=== PATIENT | male | born 1955 | race Caucasian/White ===

== ENCOUNTER 2017-10-23 08:30 | Outpatient (RCR) | payer OTHER, SELFPAY ==
--- NOTE | 2018-02-03 10:50 | HP.PT.NRP ---
HP - Discharge Summary (1) - Patient Information DANIEL CHAND was seen in my office for initial evaluation on . The following Plan of Care was established for this patient: This patient was last seen in our office . Pertinent comments regarding their Physical therapy will appear below: Patient has not attended therapy in 4 weeks and is appropriate for d/c at this time. At this point I will be discontinuing this patient from physical therapy. I would be happy to see this patient again in the future if found appropriate by the physician. Thank you! Nicole Kauffman
== END 2017-10-23 19:00 | disposition home or self-care (01) ==
LOC: PT 08:30
PROVIDERS: Family Provider Family Medicine; PCP Family Medicine; Visit Provider Family Medicine
DX: M25.511 Pain in right shoulder (principal); M79.1 Myalgia

== ENCOUNTER → 2017-11-22 07:08 | Outpatient (CLI) | payer SELFPAY ==
--- NOTE | 2017-11-22 07:45 | MRI_ITS ---
STUDY: MRI RIGHT SHOULDER REASON FOR EXAM: Right shoulder pain for 6-12 months, surgery 15 years ago. TECHNIQUE: Standardized fat and water weighted pulse sequences were obtained in all 3 orthogonal planes. COMPARISON: Radiographs 11/06/2017. FINDINGS: There is postoperative scarring of the supraspinatus tendon with a low grade partial-thickness tear of the articular surface of the supraspinatus tendon (T2 coronal images 13-14; T2 sagittal image 15) measuring approximately 1.3 cm in diameter. Normal infraspinatus tendon. Normal subscapularis tendon. Normal teres minor tendon. Normal supraspinatus muscle. There is a small cyst at the infraspinatus musculotendinous junction (T2 coronal images 6, 7) measuring approximately 1 cm in length. Normal subscapularis muscle. Normal teres minor muscle. There is a minimal volume of fluid in the glenohumeral joint, mostly in the bicipital tendon sheath. There is an anchor in the humeral head. Normal biceps labral complex. Normal intracapsular long biceps tendon. Normal labrum. Normal capsulo- ligamentous complex. There is mild acromioclavicular arthrosis without substantial undersurface osteophytes (T2 sagittal image 11). There is a Type II morphology (curved), with a neutral orientation. There is no subacromial-subdeltoid bursal fluid. Normal visualized coracohumeral and coracoacromial ligaments. Normal deltoid muscle. Normal trapezius muscle. MRI/Upper Ext Joint Only(Routine) IMPRESSION: Low-grade partial-thickness tear and postoperative scarring of the supraspinatus tendon. Mild acromioclavicular arthrosis. Electronically Signed: Matheus Herbert MD at 8:55 EST Tel , Service support ,
== END ==
PROVIDERS: Family Provider Family Medicine; PCP Family Medicine; Visit Provider Orthopaedic Surgery
DX: M75.101 Unspecified rotator cuff tear or rupture of right shoulder, not specified as traumatic (principal); M19.011 Primary osteoarthritis, right shoulder
CPT/HCPCS: 73221

== ENCOUNTER 2018-04-01 08:00 | Outpatient (RCR) | payer MEDICARE, OTHER, SELFPAY ==
--- NOTE | 2018-03-13 11:59 | HP.PTEVAL ---
Patient's Visit Information DANIEL CHAND is a 62 year old M referred to Physical Therapy by Daniel Ledezma with a diagnosis of Shoulder Pain. Date of Evaluation: 03/13/18 Physical Therapist: Nicole Kauffman - Visit Plan Frequency: 2x /Week Duration: 3 Weeks Plan: Focus on scap s/s wth good mechanics- DN, manual for modalities - Subjective Subjective: Patient reports long term right shoulder issues. He has had multiple surgeries on the shoulder. It started bothering him years ago and he had another MRI. MD wanted to do surgery to scope it but he declined and had PRP done instead. He reports that the shoulder is stiff and painful all the time but increases with activity. Pain at its worst is a 8/10 best is a 0/10. He reports pain is dull and achy and sharp/shooting with activities. 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 he has been working with a physio on the [place] from [place]. He reports n/t in the fingers that comes and goes. he is right hand dominate. Sleep is disturbed and he sleeps on his side and back with 1 pillow. He reports he feels alittle better hanging from the bar - Objective Posture: FH, RS, Increase kyphosis- can correct with verbal cues. when attempting exercises his posture suffers and his head becomes more foward. Observation: decreased muscle mass on the right upper trap and medial border of the scapula. Palpation: tender along infraspinatus, bicpital groove. ROM: WNL in all planes- slow and painful with IR, flexion and abduction. Strength: Scap: poor, Shoulder: 4-/5 throughout Elbow: 5/5, Hose Inspector And Patcher: equal. Sensation: WNL. Cervical spine: ROM WNL. Decreased pain in the ROM with cervical distraction. - Goals Goal 1:: Patient will be I with HEP and progression Goal Time Frame: 4-6 Weeks Goal 2:: Patient will maintain proper posture throughout tx to demo increased scap s/s. Goal Time Frame: 4-6 Weeks Goal 3:: Patient will report 2/10 pain for 1 week Goal Time Frame: 4-6 Weeks Goal 4:: Patient will demo full AROM Goal Time Frame: 4-6 Weeks - Rehabilitation Potential Physical Therapy Diagnosis: Patient presents with hypomobility- he has decreased scapular s/s leading to increased pain. Rehabilitation Potential: Good - Anticipated Interventions Therapeutic Exercise to Include: Strength training, Endurance training, Body mechanics, Postural training, Scapular Strength/Stabilization For the Purpose of:: To improve muscle performance and motor function Manual Therapy Techniques to Include: Mobilization, Functional dry needling, Soft tissue mobilization For the Purpose of:: To improve nutrient delivery to tissue Thank you for the opportunity to evaluate your patient. For Medicare and Medicare HMO plans, please review the plan of care and approve it. It will need to be FAXED BACK to us at [phone] for Medicare purposes. Please let me know if there are questions or concerns regarding this plan of care. Physician Signature: Date:
--- NOTE | 2018-04-01 08:00 | DT_ITS ---
This patient was seen during an EMR downtime March 31, 2018 - April 07, 2018. This patient may have a combination of paper and electronic documentation or all paper documentation. All documentation is viewable within the e-chart portion of [facility] for each patient visit.
--- NOTE | 2018-07-22 10:42 | HP.PT.NRP ---
HP - Discharge Summary (1) - Patient Information DANIEL CHAND was seen in my office for initial evaluation on 03/13/18. The following Plan of Care was established for this patient: Initial Frequency: 2x /Week Initial Duration: 3 Weeks - Anticipated Interventions Therapeutic Exercise to Include: Strength training, Endurance training, Body mechanics, Postural training, Scapular Strength/Stabilization For the Purpose of:: To improve muscle performance and motor function Manual Therapy Techniques to Include: Mobilization, Functional dry needling, Soft tissue mobilization For the Purpose of:: To improve nutrient delivery to tissue This patient was last seen in our office . Pertinent comments regarding their Physical therapy will appear below: Patient has not attended physical therapy in over 8 weeks. At this time patient is appropriate for d/c and return to MD as needed. At this point I will be discontinuing this patient from physical therapy. I would be happy to see this patient again in the future if found appropriate by the physician. Thank you! Nicole Kauffman
== END 2018-04-01 19:00 | disposition home or self-care (01) ==
LOC: PT 08:00
PROVIDERS: Family Provider Family Medicine; PCP Family Medicine; Visit Provider Family Medicine
DX: M25.512 Pain in left shoulder (principal); M25.511 Pain in right shoulder
CPT/HCPCS: 97110; 97140; 97162

== ENCOUNTER → 2018-07-21 11:21 | Outpatient (CLI) | payer MEDICARE, OTHER, SELFPAY ==
[2018-07-21 14:00] LABS: Absolute Lymphocyte Count 1.77 X10^3/ul (0.83-4.51); Absolute Neutrophil Count 3.2 X10^3/uL (2.0-7.7); Basophil# 0.03 X10^3/uL; Basophil% 0.4 % (0-1); Eosinophil# 0.51 X10^3/uL; Eosinophils% 7.6 % (0-5); Hematocrit 44.9 % (40-54); Hemoglobin 15.4 g/dl (13.0-16.5); Lymphocyte # 1.77 X10^3/ul (4.0); Lymphocyte % 26.3 % (19-41); Mean Corp Hgb Conc 34.3 g/gl (32-36); Mean Corpuscular Hgb 30.9 pg (27.0-32.0); Mean Corpuscular Volume 90.2 fL (80-94); Mean Platelet Vol. 10.1 fl (6.2-12.0); Monocyte# 1.18 X10^3/uL; Monocyte% 17.5 % (0-10); Neutrophil # 3.23 X10^3/uL (2.7-7.7); Neutrophil % 48.1 % (47-70); Platelet Count 193 K/mm3 (150-450); RBC Distribution Width CV 13.8 % (11.6-14.6); RBC Distribution Width SD 45.3 fl (35.1-43.9); Red Blood Count 4.98 M/mm3 (4.6-6.2); White Blood Count 6.7 K/mm3 (4.4-11.0)
[2018-07-21 14:01] LABS: POSITIVE COUNT NO; POSITIVE DIFFERENTIAL NO; POSITIVE MORPHOLOGY NO
[2018-07-21 14:03] LABS: Magnesium 2.2 mg/dL (1.6-2.6)
[2018-07-21 14:18] LABS: Vitamin D,25 Hydroxy 28.5 ng/mL (29.95-100.01)
== END ==
PROVIDERS: Family Provider Family Medicine; PCP Family Medicine; Visit Provider Family Medicine
DX: G47.62 Sleep related leg cramps (principal)
CPT/HCPCS: 36415; 82306; 83735; 85025

== ENCOUNTER → 2018-10-27 09:35 | Outpatient (CLI) | payer MEDICARE, OTHER, SELFPAY ==
[2018-10-27 12:23] LABS: Absolute Lymphocyte Count 1.18 X10^3/ul (0.83-4.51); Absolute Neutrophil Count 2.1 X10^3/uL (2.0-7.7); Basophil# 0.01 X10^3/uL; Basophil% 0.2 % (0-1); Eosinophil# 0.25 X10^3/uL; Hematocrit 46.3 % (40-54); Hemoglobin 15.5 g/dl (13.0-16.5); Lymphocyte # 1.18 X10^3/ul (4.0); Lymphocyte % 28.2 % (19-41); Mean Corp Hgb Conc 33.5 g/gl (32-36); Mean Corpuscular Hgb 29.9 pg (27.0-32.0); Mean Corpuscular Volume 89.4 fL (80-94); Mean Platelet Vol. 11.2 fl (6.2-12.0); Monocyte# 0.61 X10^3/uL; Monocyte% 14.6 % (0-10); Neutrophil # 2.12 X10^3/uL (2.7-7.7); Neutrophil % 50.8 % (47-70); Platelet Count 190 K/mm3 (150-450); RBC Distribution Width SD 45.8 fl (35.1-43.9); Red Blood Count 5.18 M/mm3 (4.6-6.2); White Blood Count 4.2 K/mm3 (4.4-11.0)
[2018-10-27 12:24] LABS: POSITIVE COUNT NO; POSITIVE DIFFERENTIAL NO; POSITIVE MORPHOLOGY NO
[2018-10-27 12:38] LABS: Vitamin D,25 Hydroxy 32.1 ng/mL (29.95-100.01)
[2018-10-27 12:45] LABS: Anion Gap 10 (5-15); BUN 15 mg/dL (7-18); BUN/Creat Ratio 17.4 RATIO (10-20); Calcium,Total 8.6 mg/dL (8.5-10.1); Chloride 103 mmol/L (98-107); Cholesterol 197 mg/dL (200); Creatinine, Serum 0.86 mg/dL (0.70-1.30); EST Glomerular Filtration Rate 94 mL/min (>60); Est Glom Filt Rate - Afr Amer 114 mL/min (>60); Free T3 2.8 pg/mL (2.18-3.98); Glucose 85 mg/dL (74-106); High Density Lipoprotein 48 mg/dL; Magnesium 2.4 mg/dL (1.6-2.6); Potassium 4.2 mmol/L (3.5-5.1); Sodium Level 140 mmol/L (136-145); T3 Uptake 36 % (33-40); T4 Free Direct 0.97 ng/dL (0.76-1.46); Thyroid Stim Hormone (TSH) 1.62 uIU/mL (0.358-3.74); Triglycerides 76 mg/dL; Very Low Density Lipoprotein 15 mg/dL (5-40)
[2018-10-29 14:25] LABS: Anti-Thyroglobulin AB < 1.0 IU/mL (0.0-0.9); Thyroglobulin, Serum Qt. 6.5 ng/mL (1.4-29.2)
[2018-10-31 03:06] LABS: DHEA Sulfate 216.3 ug/dL (30.9-295.6)
== END ==
PROVIDERS: Family Provider Family Medicine; PCP Family Medicine; Visit Provider Family Medicine
DX: E78.00 Pure hypercholesterolemia, unspecified (principal); R25.2 Cramp and spasm; R68.89 Other general symptoms and signs
CPT/HCPCS: 36415; 80048; 80061; 82306; 82627; 83735; 84432; 84439; 84443; 84479; 84481; 85025; 86800; 82626

== ENCOUNTER 2019-07-02 10:00 | Outpatient (RCR) | payer SELFPAY ==
--- NOTE | 2019-08-07 08:21 | HP.PTDCSUM ---
HP - PT D/C Summary It has been my pleasure to treat DANIEL CHAND under orders from Self Referred, for the diagnosis of for a total of 1 visit(s). Discharge Date: Please see the following information for a summary of their discharge status. - Subjective Subjective: Dry Needling continued from old chart- all over from cross fit game - Objective Objective/Function: Patient was able to complete without incidence. No increase in s/s throughout session. - Plan Plan: Cont with POC - D/C Information If there are questions or concerns regarding this patient's physical therapy, please feel free to call me at [phone]. Thank you for the referral of this patient. Sincerely, AVILA SavageT
== END 2019-07-02 19:00 | disposition home or self-care (01) ==
LOC: PT 10:00
PROVIDERS: Family Provider Family Medicine; PCP Family Medicine
DX: R69 Illness, unspecified (principal)

== ENCOUNTER → 2020-08-24 12:56 | Outpatient (CLI) | payer MEDICARE, OTHER, SELFPAY ==
--- NOTE | 2020-08-24 13:25 | RAD_ITS ---
HISTORY: Chronic pain ADDITIONAL HISTORY: None provided. EXAMINATION/TECHNIQUE: XR Spine Cervical 4 or 5 Views Number of images including paperwork: 5 COMPARISON: None FINDINGS: VERTEBRAE: No acute fracture. VERTEBRAL ALIGNMENT: No traumatic subluxation. DISKS AND JOINTS: Moderate discogenic degenerative changes C4-5 and C5-6. Facet arthropathy. Mild bilateral foraminal stenosis at C5-6. SOFT TISSUES: Unremarkable paraspinous soft tissues. RAD/Cerv Spine 4 or 5 Views IMPRESSION: No acute findings. Cervical spondylosis. at [id number] Reported and signed by: Naheed Stringer MD Electronically Signed: Naheed Stringer MD at 4:45 EDT Tel , Service support ,
== END ==
DX: M54.2 Cervicalgia (principal); G89.29 Other chronic pain
CPT/HCPCS: 72050

== ENCOUNTER → 2020-09-26 06:45 | Outpatient (CLI) | payer MEDICARE, OTHER, SELFPAY ==
--- NOTE | 2020-09-26 06:54 | MRI_ITS ---
STUDY: MRI CERVICAL SPINE WITHOUT CONTRAST REASON FOR EXAM: Male, 65 years old. chronic neck pain, numbness fingers and hands TECHNIQUE: Standardized fat and water weighted pulse sequences were obtained in the sagittal and axial planes. COMPARISON: None FINDINGS: Normal foramen magnum and brainstem-cervical cord junction. Normal craniovertebral junction. Normal anterior atlantoaxial articulation. Normal odontoid process. Normal cervical lordosis. Normal vertebral bodies and posterior osseous elements. C2-3: Small broad-based disc bulge. Normal central canal and intervertebral neural foramina. C3-4: Small broad-based disc bulge. Normal central canal and intervertebral neural foramina. C4-5: Small broad-based disc bulge. 2 mm retrolisthesis. Normal central canal and intervertebral neural foramina. C5-6: Small broad-based disc bulge. 2 mm retrolisthesis. Normal central canal and intervertebral neural foramina. C6-7: Small broad-based disc bulge. Normal central canal and intervertebral neural foramina. C7-T1: Small broad-based disc bulge. Normal central canal and intervertebral neural foramina. Normal cervical cord. Normal visualized soft tissue structures. MRI/Spine Cervical (Routine) IMPRESSION: Multilevel degenerative changes, as described above. Electronically Signed: Nadia Faulkner, at 7:20 EST Tel , Service support ,
== END ==
DX: M54.2 Cervicalgia (principal); G89.29 Other chronic pain
CPT/HCPCS: 72141

== ENCOUNTER → 2020-10-18 10:24 | Outpatient (CLI) | payer MEDICARE, OTHER, SELFPAY ==
[2020-10-18 12:25] LABS: Anion Gap 3 (5-15); BUN 13 mg/dL (7-18); BUN/Creat Ratio 14.2 RATIO (10-20); Calcium,Total 8.7 mg/dL (8.5-10.1); Chloride 105 mmol/L (98-107); Creatinine, Serum 0.91 mg/dL (0.70-1.30); EST Glomerular Filtration Rate 88 mL/min (>60); Est Glom Filt Rate - Afr Amer 106 mL/min (>60); Glucose 86 mg/dL (74-106); Lipase 213 U/L (73-393); Potassium 4.4 mmol/L (3.5-5.1); Sodium Level 138 mmol/L (136-145)
[2020-10-18 12:31] LABS: Absolute Lymphocyte Count 1.27 X10^3/uL (0.83-4.51); Absolute Neutrophil Count 2.7 X10^3/uL (2.0-7.7); Basophil# 0.05 X10^3/uL; Eosinophil# 0.39 X10^3/uL; Eosinophils% 7.5 % (0-5); Hematocrit 44.2 % (40-54); Hemoglobin 14.8 g/dL (13.0-16.5); Lymphocyte # 1.27 X10^3/ul (4.0); Lymphocyte % 24.6 % (19-41); Mean Corp Hgb Conc 33.5 g/dL (32-36); Mean Corpuscular Hgb 30.2 pg (27.0-32.0); Mean Corpuscular Volume 90.2 fL (80-94); Mean Platelet Vol. 10.8 fl (6.2-12.0); Monocyte# 0.78 X10^3/uL; Monocyte% 15.1 % (0-10); NRBC Flagged by Analyzer 0 % (0-5); Neutrophil # 2.66 X10^3/uL (2.7-7.7); Neutrophil % 51.4 % (47-70); Platelet Count 219 K/mm3 (150-450); RBC Distribution Width CV 12.7 % (11.6-14.6); RBC Distribution Width SD 42.1 fl (35.1-43.9); White Blood Count 5.2 K/mm3 (4.4-11.0)
== END ==
PROVIDERS: PCP Registered Nurse; Referring Provider Registered Nurse; Visit Provider Registered Nurse
DX: R19.7 Diarrhea, unspecified (principal)
CPT/HCPCS: 36415; 80048; 83690; 85025

== ENCOUNTER 2020-10-31 13:30 | Outpatient (RCR) | payer SELFPAY ==
--- NOTE | 2020-12-07 10:29 | HP.PT.NRP ---
DANIEL HEBERTBETH CHAND was seen in my office for initial evaluation on . The following Plan of Care was established for this patient: This patient was last seen in our office . Pertinent comments regarding their Physical therapy will appear below: Dry Needling At this point I will be discontinuing this patient from physical therapy. I would be happy to see this patient again in the future if found appropriate by the physician. Thank you! AVILA SavageT
== END 2020-10-31 19:00 | disposition home or self-care (01) ==
LOC: PT 13:30
PROVIDERS: PCP Family Medicine
DX: R69 Illness, unspecified (principal)

== ENCOUNTER → 2020-12-02 11:21 | Outpatient (CLI) | payer MEDICARE, OTHER, SELFPAY ==
--- NOTE | 2020-12-02 13:55 | NEURO_ITS ---
NCS and/or EMG Patient Report Ordering Doctor: Jacob Ferrera DATE OF SERVICE: 12/02/20 Indication: Intermittent numbness of the hands bilaterally. Chronic neck pain. Multiple remote orthopaedic injuries to both upper extremities. Findings: Nerve conduction studies were performed in the right and left upper extremities. The right median motor study recording the abductor pollicis brevis showed a normal amplitude, borderline distal latency and normal conduction velocity. The right ulnar motor study recording the abductor digiti minimi showed a normal amplitude, normal distal latency and normal conduction velocity. No conduction block or focal slowing was present across the elbow. The right median sensory response recording digit two showed a borderline amplitude, normal latency and borderline conduction velocity. The right ulnar sensory response recording digit five showed a borderline amplitude, normal l atency and slowed conduction velocity. The right radial sensory response recording over the extensor snuff box showed a normal amplitude, normal latency and borderline conduction velocity. The left median motor study recording the abductor pollicis brevis showed a normal amplitude, prolonged distal latency and normal conduction velocity. The left ulnar motor study recording the abductor digiti minimi showed a normal amplitude, normal distal latency and normal conduction velocity. Focal slowing was present across the elbow. The left median sensory response recording digit two showed a borderline amplitude, normal latency and borderline conduction velocity. The left ulnar sensory response recording digit five showed a borderline amplitude, normal latency and slowed conduction velocity. The left radial sensory response recording over the extensor snuff box showed a normal amplitude, latency and conduction velocity. As routine median motor and sensory studies only demonstrated mild a bnormalities, additional internal comparison studies were done to confirm this finding. Right median-ulnar lumbrical / interosseous motor latencies showed a prolonged median latency compared to the ulnar. Left median-ulnar lumbrical / interosseous motor latencies showed a prolonged median latency compared to the ulnar. Needle EMG of the right upper extremity and cervical paraspinal muscles was p erformed. No active denervation was present in any examined muscle. Motor units were large and long with slightly decreased recruitment in the triceps and flexor carpi radialis muscles. All other examined muscles demonstrated normal motor unit morphology, activation and recruitment patterns. Needle EMG of the left upper extremity and cervical paraspinal muscles was performed. No active denervation was present in any examined muscle. Motor units were large and long with slightly decreased recruitment in the triceps and flexor carpi radialis muscles. All other examined muscles demonstrated normal motor unit morphology, activation and recruitment patterns. Impression: This is an abnormal and complex study. There is electrophysiologic evidence consistent with mild, bilateral median neuropathies across the wrist. There is no active denervation of the thenar muscles. 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 Thus, the patient has a double crush in each upper extremity, two separate conditions that may result in upper extremity pain and similar sensory symptoms. Clinical correlation is needed in helping to determine the relative contributions of the two to the patients symptoms. Lastly, please note: because of the two co-existent conditions, this study would be theoretically insensitive in detecting an additional superimposed brachial plexopathy. 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 The pathophysiology is predominantly demyelinating without evidence of secondary axonal loss. Lastly, the diffusely low amplitude sensory responses as well as reduced conduction velocities may be suggestive of an underlying peripheral polyneuropathy. This was not investigated fully as it was not the indication for the current study. If clinically indicated, a dedicated examination can be requested. Jerrod Jimenez D.O.
== END ==
PROVIDERS: PCP Family Medicine
DX: M79.601 Pain in right arm (principal); M79.602 Pain in left arm
CPT/HCPCS: 95886; 95913

== ENCOUNTER 2021-01-04 06:59 | Outpatient (RCR) | payer SELFPAY ==
--- NOTE | 2021-01-04 10:07 | HP.PT.NRP ---
DANIEL HEBERTBETH CHAND was seen in my office for initial evaluation on . The following Plan of Care was established for this patient: This patient was last seen in our office . Pertinent comments regarding their Physical therapy will appear below: At this point I will be discontinuing this patient from physical therapy. I would be happy to see this patient again in the future if found appropriate by the physician. Thank you! AVILA SavageT
== END 2021-01-04 10:34 | disposition home or self-care (01) ==
LOC: PT 06:59
PROVIDERS: PCP Family Medicine
DX: R69 Illness, unspecified (principal)

== ENCOUNTER 2021-06-28 11:00 | Outpatient (RCR) | payer SELFPAY ==
--- NOTE | 2021-09-27 10:48 | HP.PT.NRP ---
DANIEL CHAND was seen in my office for initial evaluation on . The following Plan of Care was established for this patient: This patient was last seen in our office 06/28/21. Pertinent comments regarding their Physical therapy will appear below: Pt. was seen for self pay DN. He has not been seen in several months and will be DC from PT at this point in time. At this point I will be discontinuing this patient from physical therapy. I would be happy to see this patient again in the future if found appropriate by the physician. Thank you! Ja Diaz, AVILAT
== END 2021-06-28 19:00 | disposition home or self-care (01) ==
LOC: PT 11:00
PROVIDERS: PCP Family Medicine
DX: R69 Illness, unspecified (principal)

== ENCOUNTER 2021-12-19 08:30 | Outpatient (RCR) | payer SELFPAY ==
--- NOTE | 2022-04-12 14:40 | HP.PT.NRP ---
DANIEL AMBROSIO MANNIE was seen in my office for initial evaluation on . The following Plan of Care was established for this patient: This patient was last seen in our office . Pertinent comments regarding their Physical therapy will appear below: Patient has not attended PT in over 30 days- Dry Needling- appropriate to be d/c and return to MD for further evaluation as needed. At this point I will be discontinuing this patient from physical therapy. I would be happy to see this patient again in the future if found appropriate by the physician. Thank you! AVILA SavageT
== END 2021-12-19 19:00 | disposition home or self-care (01) ==
LOC: PT 08:30
PROVIDERS: PCP Family Medicine
DX: Z00.00 Encounter for general adult medical examination without abnormal findings (principal)

== ENCOUNTER 2022-08-07 09:30 | Outpatient (RCR) | payer SELFPAY ==
--- NOTE | 2022-09-27 07:37 | HP.PT.NRP ---
DANIEL CHAND was seen in my office for initial evaluation on . The following Plan of Care was established for this patient: This patient was last seen in our office . Pertinent comments regarding their Physical therapy will appear below: Self Pay DN- D/C At this point I will be discontinuing this patient from physical therapy. I would be happy to see this patient again in the future if found appropriate by the physician. Thank you! AVILA SavageT
== END 2022-08-07 19:00 | disposition home or self-care (01) ==
LOC: PT 09:30
PROVIDERS: PCP Family Medicine
DX: R69 Illness, unspecified (principal)

== ENCOUNTER → 2022-08-20 | Outpatient (CLI) | payer MEDICARE, OTHER, SELFPAY ==
[2022-08-20 13:49] LABS: ALB/GLOB Ratio 1.1 RATIO (0.9-2.4); AST(SGOT) 21 U/L (15-37); Alanine Aminotransfer ALT/SGPT 27 U/L (16-61); Alkaline Phosphatase 119 U/L (45-117); Anion Gap 6 (5-15); BUN 18 mg/dL (7-18); BUN/Creat Ratio 18.8 RATIO (10-20); Calcium,Total 9.6 mg/dL (8.5-10.1); Chloride 103 mmol/L (98-107); Creatinine, Serum 0.96 mg/dL (0.70-1.30); EST Glomerular Filtration Rate 83 mL/min (>60); Est Glom Filt Rate - Afr Amer 100 mL/min (>60); Globulin 3.7 g/dL (2.2-4.2); Glucose 78 mg/dL (74-106); Potassium 4.8 mmol/L (3.5-5.1); Protein, Total 7.7 g/dL (6.4-8.2); Sodium Level 138 mmol/L (136-145)
== END | disposition home or self-care (01) ==
PROVIDERS: PCP Family Medicine
DX: B37.7 Candidal sepsis (principal)
CPT/HCPCS: 36415; 80053; 82784

== ENCOUNTER → 2023-01-07 | Outpatient (CLI) | payer MEDICARE, OTHER, SELFPAY | END | disposition home or self-care (01) | LOC: LABSPEC 13:52 | PROVIDERS: PCP Family Medicine; Visit Provider Family Medicine | DX: J02.9 Acute pharyngitis, unspecified (principal) | CPT/HCPCS: 87070 ==

== ENCOUNTER → 2023-04-17 | Outpatient (CLI) | payer MEDICARE, OTHER, SELFPAY ==
[2023-04-17 11:35] LABS: Absolute Lymphocyte Count 1.59 X10^3/uL (0.83-4.51); Absolute Neutrophil Count 2.9 X10^3/uL (2.0-7.7); Basophil# 0.04 X10^3/uL; Basophil% 0.7 % (0-1); Eosinophils% 5.5 % (0-5); Hematocrit 48.4 % (40-54); Lymphocyte # 1.59 X10^3/ul (0.83-4.51); Lymphocyte % 29.1 % (19-41); Mean Corp Hgb Conc 33.1 g/dL (32-36); Mean Corpuscular Hgb 30.2 pg (27.0-32.0); Mean Corpuscular Volume 91.5 fL (80-94); Mean Platelet Vol. 10.2 fl (6.2-12.0); Monocyte# 0.66 X10^3/uL; Monocyte% 12.1 % (0-10); NRBC Flagged by Analyzer 0 % (0-5); Neutrophil # 2.87 X10^3/uL (2.7-7.7); Neutrophil % 52.4 % (47-70); Platelet Count 180 K/mm3 (150-450); RBC Distribution Width CV 14.4 % (11.6-14.6); Red Blood Count 5.29 M/mm3 (4.6-6.2); White Blood Count 5.5 K/mm3 (4.4-11.0)
[2023-04-17 12:14] LABS: Anion Gap 3 (5-15); BUN 17 mg/dL (7-18); BUN/Creat Ratio 19.5 RATIO (10-20); Calcium,Total 8.8 mg/dL (8.5-10.1); Chloride 108 mmol/L (98-107); Creatinine, Serum 0.87 mg/dL (0.70-1.30); EST Glomerular Filtration Rate 92 mL/min (>60); Est Glom Filt Rate - Afr Amer 112 mL/min (>60); Glucose 91 mg/dL (74-106); Potassium 4.5 mmol/L (3.5-5.1); Sodium Level 138 mmol/L (136-145); Thyroid Stim Hormone (TSH) 1.11 uIU/mL (0.358-3.74)
== END | disposition home or self-care (01) ==
LOC: LAB 11:03
PROVIDERS: PCP Family Medicine; Referring Provider Internal Medicine Cardiovascular Disease; Visit Provider Internal Medicine Cardiovascular Disease
DX: I48.0 Paroxysmal atrial fibrillation (principal)
CPT/HCPCS: 36415; 80048; 84443; 85025

== ENCOUNTER → 2023-05-10 | Outpatient (CLI) | payer MEDICARE, OTHER, SELFPAY ==
--- NOTE | 2023-05-10 12:35 | ECHOD_ITS ---
Reason For Study: Arrhythmia Procedure This was a 2D Doppler, Color Flow transthoracic echocardiogram. Exam performed in department. Left Ventricle Normal LV size. Left ventricular systolic function is normal. The estimated ejection fraction is 75 %. No regional wall motion abnormalities noted. Right Ventricle Normal RV size. Normal systolic function. Atria Normal left atrium. Normal right atrium. Hypermobile atrial septum. Mitral Valve Mild mitral valve prolapse, anterior leaflet. Mild (1+) eccentric mitral valve insufficiency. Tricuspid Valve Normal tricuspid valve. Mild (1+) tricuspid valve insufficiency. Pulmonary artery systolic pressure is 30 mmHg. Aortic Valve Trisinus/trileaflet aortic valve. Mild focal aortic valve calcification. Trivial aortic valve insufficiency. Pulmonic Valve Normal pulmonic valve. Great Vessels Normal aortic root. The pulmonary artery is normal size. Normal inferior vena cava. Pericardium/Pleural No pericardial effusion. MMode/2D Measurements & Calculations LVIDd: 4.5 cm IVSd: 0.96 cm Ao root diam: 3.1 cm LVIDs: 2.5 cm LVPWd: 0.93 cm RVDd: 3.8 cm FS: 44.4 % LAV(MOD-bp): 54.1 ml LVAd ap4: 27.5 cm2 SV(MOD-sp4): 51.1 ml LAV(MOD-bp) Indexed: 27.5 ml/m2 LVLd ap4: 8.2 cm LAV(MOD-sp2): 66.0 ml EDV(MOD-sp4): 77.7 ml LAV(MOD-sp4): 44.8 ml EDV(sp4-el): 78.3 ml LVAs ap4: 14.0 cm2 LVLs ap4: 6.4 cm ESV(MOD-sp4): 26.6 ml ESV(sp4-el): 25.9 ml EF(MOD-sp4): 65.8 % EF(sp4-el): 66.9 % SV(sp4-el): 52.4 ml LA A4 area: 17.7 cm2 LA dimension(2D): 3.5 cm RA A4 area: 15.2 cm2 Time Measurements MV dec time: 0.31 sec Doppler Measurements & Calculations MV E max luis: 50.6 cm/sec Lat Peak E' Luis: 9.0 cm/sec Med Peak E' Luis: 8.2 cm/sec MV A max luis: 42.4 cm/sec E/E' lat: 5.6 E/E' med: 6.1 MV E/A: 1.2 Ao V2 max: 185.2 cm/sec LV V1 max: 104.6 cm/sec MV dec slope: 160.8 cm/sec2 Ao max P.7 mmHg LV V1 max P.4 mmHg Ao V2 mean: 133.4 cm/sec Ao mean P.9 mmHg Ao V2 VTI: 39.1 cm PA V2 max: 141.5 cm/sec PI end-d luis: 121.4 cm/sec TR max luis: 258.9 cm/sec TR max P.8 mmHg ECHO/Echo Complete Interpretation Summary Normal LV size. Left ventricular systolic function is normal. The estimated ejection fraction is 75 %. Hypermobile atrial septum. Mild (1+) tricuspid valve insufficiency. Mild mitral valve prolapse, anterior leaflet Ordering Physician: Ghulam Rankin Referring Physician: Mare Castellano Performed By: Vanda Berman, NANNETTE, RVT
--- NOTE | 2023-05-10 13:23 | STRESSREP ---
Stress Test Report Exercise stress test. 68-year-old male with a history of previous CAD Stress protocol: Resting EKG demonstrates sinus bradycardia with a rate of 54 bpm resting blood pressure is 108/62 mmHg. The patient exercised according to the regular Jorge Alberto protocol for a total duration of 12 minutes and 30 seconds attaining a maximum heart rate of 130 bpm which was 86% of maximum predicted heart rate; the maximum workload was 15.3 metabolic equivalents. At rest there were no ST or T wave changes noted to suggest ischemia and at peak exercise upsloping ST changes only were noted which did not meet the criteria for ischemia. No clinical angina was noted the test was terminated due to the target heart rate being achieved/fatigue. The peak blood pressure was 158/64 mmHg. Rate-pressure product was 19,400. Conclusion: Normal exercise stress test at a high workload with no ischemia and no arrhythmias noted.
== END | disposition home or self-care (01) ==
PROVIDERS: PCP Family Medicine; Referring Provider Internal Medicine Cardiovascular Disease; Visit Provider Internal Medicine Cardiovascular Disease
DX: I48.0 Paroxysmal atrial fibrillation (principal); I25.3 Aneurysm of heart
CPT/HCPCS: 93017; 93306

== ENCOUNTER → 2024-02-11 | Outpatient (CLI) | payer MEDICARE, OTHER, SELFPAY | END | disposition home or self-care (01) | LOC: LABSPEC 15:15 | PROVIDERS: PCP Family Medicine; Referring Provider Otolaryngology Otolaryngology/Facial Plastic Surgery; Visit Provider Otolaryngology Otolaryngology/Facial Plastic Surgery | DX: J32.9 Chronic sinusitis, unspecified (principal) | CPT/HCPCS: 87070; 87205 ==

== ENCOUNTER 2024-03-31 14:17 | Outpatient (RCR) | payer SELFPAY | END 2024-03-31 19:00 | disposition home or self-care (01) | LOC: PT 14:17 | PROVIDERS: PCP Family Medicine | DX: Z00.00 Encounter for general adult medical examination without abnormal findings (principal) ==

== ENCOUNTER → 2024-12-25 | Outpatient (CLI) | payer MEDICARE, OTHER, SELFPAY ==
--- NOTE | 2024-12-25 13:22 | CT_ITS ---
PROCEDURE: SINUS/FACIAL BONE REASON FOR EXAM: Chronic history of sinus congestion. TECHNIQUE: CT of the paranasal sinuses with contrast. CONTRAST: COMPARISON: None. FINDINGS: Frontal: Frontal sinuses and frontoethmoidal recesses appear clear. Ethmoid: Mucosal thickening of the ethmoid sinuses. Sphenoid: Sphenoid sinuses and sphenoethmoidal recesses appear clear. Maxillary: Opacification of the maxillary sinus bilaterally more prominent on the right side. The right ostiomeatal complex is obliterated due to soft tissue prominence. Turbinates: Unremarkable. Nasal Septum: Midline. No large nasal septal spur. Mastoids/Middle Ears: Clear at visualized levels. Visualized intracranial structures are unremarkable. No suspicious contrast enhancement. CT/Sinus/Facial Bone IMPRESSION: Opacification of both maxillary sinuses worse on the right side. Mucosal thickening of the ethmoid sinuses. One or more dose reduction techniques were used (e.g., Automated exposure contr ol, adjustment of the mA and/or kV according to patient size, use of iterative reconstruction technique). Reading Location: [id number]
== END | disposition home or self-care (01) ==
PROVIDERS: PCP Internal Medicine; Referring Provider Internal Medicine; Visit Provider Internal Medicine
DX: J01.80 Other acute sinusitis (principal)
CPT/HCPCS: 70486

== ENCOUNTER → 2025-01-01 | Outpatient (CLI) | payer MEDICARE, OTHER, SELFPAY | END | disposition home or self-care (01) | LOC: LABSPEC 15:25 | PROVIDERS: PCP Internal Medicine; Referring Provider Otolaryngology; Visit Provider Otolaryngology | DX: J32.9 Chronic sinusitis, unspecified (principal) | CPT/HCPCS: 87070; 87077; 87186; 87205 ==

== ENCOUNTER → 2025-03-09 | Outpatient (CLI) | payer MEDICARE, OTHER, SELFPAY ==
--- NOTE | 2025-03-09 10:58 | MRI_ITS ---
PROCEDURE: UPPER EXT JOINT ONLY(ROUTINE) 03/09/2025 REASON FOR EXAM: PAIN, PAST HX OF CUFF REPAIR 20 YRS AGO TECHNIQUE: T1, T2, PD MRI of the right upper Extremity. Multiplanar and multisequence images were obtained without IV contrast administration. COMPARISON: COMPARISON : February 01, 2025 x-ray FINDINGS: Bone Marrow: Artifact is noted from the suture anchor in the superolateral humeral head with prior distal infraspinatus repair. There is a full-thickness, 75% with tear of the distal infraspinatus without retraction. There is a full-thickness, 25% with tear of the distal supraspinatus without retraction. There is severe distal subscapularis tendinopathy without full-thickness tear or retraction. The teres minor appears intact. Medial subluxation of the biceps tendon is noted, without avulsion. There is moderate AC joint hypertrophy without evidence of separation, with subcortical cyst formation noted. There is a type 3 acromion with impingement configuration. The labrum appears intact. There is a trace joint effusion which extends into the subacromial subdeltoid bursa. MRI/Upper Ext Joint Only(Routine) IMPRESSION: Artifact is noted from the suture anchor in the superolateral humeral head with prior distal infraspinatus repair. There is a full-thickness, 75% with tear of the distal infraspinatus without re traction. There is a full-thickness, 25% with tear of the distal supraspinatus without re traction. There is severe distal subscapularis tendinopathy without full-thickness tear o r retraction. Medial subluxation of the biceps tendon is noted, without avulsion. There is moderate AC joint hypertrophy without evidence of separation, with sub cortical cyst formation noted. There is a type 3 acromion with impingement configuration. There is a trace joint effusion which extends into the subacromial subdeltoid b ursa. Reading Location: [facility]
== END | disposition home or self-care (01) ==
LOC: OPMRI 10:44
PROVIDERS: PCP Internal Medicine; Referring Provider Orthopaedic Surgery Sports Medicine; Visit Provider Orthopaedic Surgery Sports Medicine
DX: M25.511 Pain in right shoulder (principal); Z98.890 Other specified postprocedural states
CPT/HCPCS: 73221

== ENCOUNTER → 2025-03-16 | Outpatient (CLI) | payer MEDICARE, OTHER, SELFPAY ==
--- NOTE | 2025-03-16 07:41 | CT_ITS ---
PROCEDURE: CHEST WITH CONTRAST 03/16/2025 REASON FOR EXAM: CT CHEST WITH IV CONTRAST; MASS LIKE OPACITIES PROJECT OVER lower right chest. TECHNIQUE: Prone and supine chest CT with intravenous contrast, high resolution CT (HRCT) protocol. Coronal and Sagittal reconstruction series were provided. CONTRAST: Isovue-300 VOLUME: 100 mL One or more dose reduction techniques were used (e.g., Automated exposure control, adjustment of the mA and/or kV according to patient size, use of iterative reconstruction technique). RADIATION DOSE SUMMARY: CTDlvol: 14 mGy DLP: 303.12 mGycm COMPARISON: None FINDINGS: Hardware: None Lymph nodes: Small mediastinal lymph nodes. Heart and Vasculature: Normal heart size. No pericardial effusion. Mild degree of coronary artery calcification. Lungs and Airways: There are multiple bilateral focal areas of patchy airspace disease more pronounced in the posterior medial segment and superior segment of the right lower lobe. Patchy areas of airspace disease also seen in the lateral anterior aspect of the right lower lobe as well as in the lower lobes and right upper lobe. Radiographic follow-up recommended. Pleura: No evidence of pleural effusion. Upper Abdomen: Unremarkable Bones: Degenerative changes of the thoracic spine. CT/Chest WITH Contrast IMPRESSION: Multiple bilateral pulmonary infiltrates as described worse in the right lower lobe. Radiographic follow-up is recommended. Reading Location: [place] [id number]
== END | disposition home or self-care (01) ==
LOC: CT 07:35
PROVIDERS: PCP Internal Medicine; Referring Provider Internal Medicine; Visit Provider Internal Medicine
DX: R91.8 Other nonspecific abnormal finding of lung field (principal)
CPT/HCPCS: 71260; Q9967

== ENCOUNTER → 2025-03-23 | Outpatient (CLI) | payer MEDICARE, OTHER, SELFPAY ==
[2025-03-26 15:08] LABS: Immunoglobulin A 321 mg/dL (61-437); Immunoglobulin E 27 IU/mL (6-495); Immunoglobulin G 1199 mg/dL (603-1613); Immunoglobulin M 107 mg/dL (15-143)
== END | disposition home or self-care (01) ==
LOC: MTLAB 13:55
PROVIDERS: PCP Internal Medicine; Referring Provider Internal Medicine Pulmonary Disease; Visit Provider Internal Medicine Pulmonary Disease
DX: R91.1 Solitary pulmonary nodule (principal); R05.9 Cough, unspecified; R06.00 Dyspnea, unspecified
CPT/HCPCS: 36415; 82784; 82785

== ENCOUNTER → 2025-05-05 | Outpatient (CLI) | payer MEDICARE, OTHER, SELFPAY ==
--- OUTSIDE RECORDS SUMMARY | 2025-04-29 23:00 | XMS RPT_ITS | CCD ---
Author Organization [facility] Care Team Providers Care Rock Loader Name Role Phone PHYSICIAN, NONE Primary Care Physician Unavailab bird DONIS MD, DR MIREILLE ARSHAD Attending U navailable PHYSICIAN, NONE Primary Care Unavailable JULISA GARCIA CNP Attending Unavailable PHYSICIAN, NONE Primary Care Unavailable JEWELS BUSTILLOS, DR MIREILLE ARSHAD [facility]ending [facility] PH[facility]IC[facility], NONE Primary Care Unavailable Dr. Mare Castellano Primary Care Provider Dr. Mare Castellano Referring Provider 1([facility])[id number] Ghulam Rankin Attending Provider Dr. Ghulam Rankin Referring Provider Dr. Ghulam Rankin Other Provider Dr. Nicole Echeverria DO Primary Care Provider Dr. Nicole Echeverria DO Attending Provider Dr. Nicole Echeverria DO Referring Provider Dr. Jerrod Swain MD Attending Provider Dr. Jerrod Swain MD Referring Provider Dru Wilson MD Attending Provider Dr. Ghulam Rankin MD Attending Provider Dru Wilson MD Referring Provider Dr. Kumar Israel MD, V Attending Provider Dr. Kumar Israel MD, V Referring Provider Nicole Echeverria Primary Care Unavailable Nicole Echeverria Referring Unavailable Dru Wilson Attending Unavailable Jacki, Nicole Primary Care Unavailable Chucho, Ghulam Attending Unavailable Jacki, Nicole Primary Care Unavailable Jacki, Nicole Referring Unavailable Dru Wilson Attending Unavailable Jollmurtaza, Mare S Primary Care Unavailable Roof Daniel SALGUERO Attending Unavailable Joaddyiff, Mare S Referring Unavailable Jerrod Swain Referring Unavailabl e Warhortensia, Jerrod Attending Unavailabl e Jacki, Nicole Primary Care Unavailable Jolliff, Mare S Primary Care Unavailable Referred, Self Referring Unavailable Referred, Self Attending Unavailable Jacki, Nicole Referring Unavailable Jacki, Nicole Attending Unavailable Jacki, Nicole Primary Care Unavailable Jacki, Nicole Primary Care Unavailable Sibilia, Kumar V Attending Unavailable Sibilia, Kumar V Referring Unavailable Jacki, Nicole Primary Care Unavailable Dru Wilson Referring Unavailable Dru Wilson Attending Unavailable Jacki, Nicole Primary Care Unavailable Jacki, Nicole Referring Unavailable Jacki, Nicole Attending Unavailable Allergies Allergy Classification Reported Allergen(s) Allergy Type Date of Onset Reaction(s) Facility (8 sources) shrimp allergenic extract Drug Allergy 8 [facility] (2 sources) ventin Allergy to substance 7 [facility] Work Phone: (9 sources) Desvenlafaxine Drug Allergy 2 [facility] (1 source) Desvenlafaxine Drug Allergy 5 [facility] (1 source) Shrimp product Drug allergy (disorder) 3 [facility] Medications Current Medications Medication Drug Class(es) Dates Sig (Normalized) Sig (Original) Cyanocobalamin-Live r Extract (6 sources) Start: 04-17-2023 take 1 tablet by mouth once daily Cyanocobalamin-Claudia er Extract Active 1 TABLET PO DAILY April 17, 2023 10:05am Start: 04-15-2023 End: 04-17-2023 Cyanocobalamin-Liver Extract Discontinued TABLET PO April 15, 2023 12:00am April 17, 2023 10:06am Cyanocobalamin-Liver Extract tablet (10 sources) Start: 04-17-2023 Cyanocobalamin -Liver Extract tablet Active 1 {tbl} PO DAILY April 17, 2023 10:05am Start: 04-15-2023 End: 04-17-2023 Cyanocobalamin-Liver Extract tablet Discontinued {tbl} PO April 15, 2023 12:00am April 17, 2023 10:06am folic acid 15 mg oral tablet (8 sources) Start: 04-15-2023 take 1 tablet by mouth once daily Folic Acid 15 mg tablet Active 15 mg PO DAILY April 15, 2023 12:00am magnesium oxide 500 mg oral tablet (8 sources) Start: 04-15-2023 take 1 tablet by mouth once daily Magnesium Oxide 500 mg tablet Active 500 mg PO DAILY April 15, 2023 12:00am Turmeric Root Extract (3 sources) Start: 04-15-2023 take 500 mg by mouth once daily Turmeric Root Extract Active 500 MG PO DAILY April 15, 2023 12:00am Turmeric Root Extract 500 mg capsule (5 sources) Start: 04-15-2023 take 1 capsule by mouth once daily Turmeric Root Extract 500 mg capsule Active 500 mg PO DAILY April 15, 2023 12:00am Completed/Discontinued Medications Medication Drug Class(es) Dates Sig (Normalized) Sig (Original) acetaminophen 325 mg / oxyCODONE hydrochloride 5 mg oral tablet (11 sources) Opioid Agonist Start: 11-22-2015 End: 04-15-2023 Oxycodone-Acetamino phen 1 TABLET tablet Discontinued 1 - 2 {tbl} PO EVERY 4 HOURS NEEDED as needed for Pain 60 November 22, 2015 1:00am April 15, 2023 10:55am Start: 11-22-2015 End: 04-15-2023 take 1 tablet by mouth every four hours as needed Oxycodone-Acetaminophen Discontinued 1 - 2 TABLET PO EVERY 4 HOURS NEEDED 60 November 22, 2015 1:00am April 15, 2023 10:55am Calcium Phosphate-Vitamin D3 (6 sources) Start: 11-18-2015 End: 04-15-2023 Calcium Phosphate-Vitamin D3 Discontinued 1 EACH PO DAILY November 18, 2015 1:00am April 15, 2023 10:55am Start: 11-18-2015 Calcium Phosph ate-Vitamin D3 Active 1 EACH PO DAILY November 18, 2015 12:00am Start: 11-18-2015 Calcium Phosph ate-Vitamin D3 Active 1 EACH PO DAILY November 18, 2015 1:00am Calcium Phosphate-Vitamin D3 1 EACH tablet,chewable (5 sources) Start: 11-18-2015 End: 04-15-2023 Calcium Phosphate-Vitamin D3 1 EACH tablet,chewable Discontinued 1 NMA PO DAILY November 18, 2015 1:00am April 15, 2023 10:55am docusate sodium 100 mg oral capsule (11 sources) Start: 11-22-2015 End: 04-15-2023 take 1 capsule by mouth twice daily as needed for constipation Docusate Sodium 100 MG capsule Discontinued 100 mg PO TWICE DAILY NEEDED as needed for Constipation November 22, 2015 1:00am April 15, 2023 10:55am Multivitamin 1 EACH tablet (5 sources) Start: 11-18-2015 End: 04-15-2023 Multivitamin 1 EACH tablet Discontinued 1 NMA PO DAILY November 18, 2015 1:00am April 15, 2023 10:56am Multivitamin preparation (6 sources) Start: 11-18-2015 End: 04-15-2023 Multivitamin Discontinued 1 EACH PO DAILY November 18, 2015 1:00am April 15, 2023 10:56am Start: 11-18-2015 Multivitamin A ctive 1 EACH PO DAILY November 18, 2015 12:00am Start: 11-18-2015 Multivitamin A ctive 1 EACH PO DAILY November 18, 2015 1:00am promethazine hydrochloride 25 mg oral tablet (11 sources) Phenothiazine Start: 11-22-2015 End: 04-15-2023 take 1 tablet by mouth every four hours as needed for nausea Promethazine 25 MG tablet Discontinued 25 mg PO EVERY 4 HOURS NEEDED as needed for Nausea November 22, 2015 1:00am April 15, 2023 10:56am Problems Problem Classification Problem Date Documented Date Episodic/Chronic Cardiac dysrhythmias (18 sources) Cardiac arrhythmia; Translations: [Cardiac arrhythmia, unspecified] 04-17-2023 Chronic Disorders of lipid metabolism (8 sources) Hyperlipidemia; Translations: [Hyperlipidemia, unspecified] 04-15-2023 Chronic Heart valve disorders (8 sources) Mitral valve prolapse; Translations: [Nonrheumatic mitral (valve) prolapse] 04-15-2023 Chronic Other and ill-defined heart disease (8 sources) Atrial septal aneurysm; Translations: [Aneurysm of heart] 04-15-2023 Chronic Other connective tissue disease (2 sources) Tear of right rotator cuff; Translations: [Unspecified rotator cuff tear or rupture of right shoulder, not specified as traumatic] 03-23-2025 Episodic Other lower respiratory disease (1 source) Solitary pulmonary nodule; Translations: [Solitary pulmonary nodule] Onset: 03-29-2025 Episodic Other lower respiratory disease (1 source) Other nonspecific abnormal finding of lung field; Translations: [Other nonspecific abnormal finding of lung field] Onset: 2025 Episodic Other non-traumatic joint disorders (8 sources) Pain in right shoulder; Translations: [Right shoulder pain] Onset: 03-13-2025 02-01-2025 Episodic Other non-traumatic joint disorders (6 sources) Hip pain; Translations: [Pain in right hip] 02-01-2025 Episodic Other non-traumatic joint disorders (1 source) Pain in right hip; Translations: [Pain in right hip] Onset: 02-01-2025 Episodic Other upper respiratory infections (1 source) Chronic sinusitis, unspecified; Translations: [Chronic sinusitis, unspecified] Onset: 01-14-2025 Chronic Other upper respiratory infections (1 source) Other acute sinusitis; Translations: [Other acute sinusitis] Onset: 01-07-2025 Episodic Residual codes; unclassified (1 source) Other specified postprocedural states; Translations: [Other specified postprocedural states] Onset: 02-01-2025 Episodic Unclassified (6 sources) Pain of right hip; Translations: [M25.551 - Pain in right hip] Results Test Name Value Interpretation Reference Range Facility Immunoglobulins G/A/M/Robert IMMUNOGLOB A QN 321 mg/dL Normal 61-437 [facility] Comment on above: Order Comment: N Performed By: #### L 3200.1100 #### [facility] [address] [place], [address] IMMUNOGLOB E QN 27 IU/mL Normal 6-495 [facility] Comment on above: Order Comment: N Result Comment: Perf ormed at: [facility] [id number] Clearance Coordinator: Dontae Rehman PhD, Phone: [phone] Performed at: [facility] [id number] Clearance Coordinator: Lorena Thurston MD, Phone: [phone] Performed By: #### L 3200.1100 #### [facility] [address] [place], [address] IMMUNOGLOB G QN 1199 mg/dL Normal 603-1613 [facility] Comment on above: Order Comment: N Performed By: #### L 3200.1100 #### [facility] [address] [place], [address] IMMUNOGLOB M QN 107 mg/dL Normal 15-143 [facility] Comment on above: Order Comment: N Performed By: #### L 3200.1100 #### [facility] [address] [place], [address] IgEOrdered By: Kumar worthy 03-23-2025 IgE 27 IU/mL 6-495 [facility] Comment on above: Performed at: [facility] [employer] [id number] Director: Dontae Rehman PhD, Phone: [phone] at: [employer] [facility] [id number] Director: Lorena Thurston MD, Phone: [phone] Orthopedic Visit Reporton Orthopedic Visit Report [facility] [address] [place] [address] [address] [place] [address] OFFICE VISIT Date of Service: 03/23/25 MR#: [id number] Acct: [id number] Name: DANIEL CHAND Rep #: [id number] : 1955 Provider: Dr. Dru worthy MD Age/Sex: 70/M Location: [facility].REMI Status: Signed Intake Vital Signs 02/01/25 08:59 Height 6 ft Weight: 172 lb 4 oz BMI 23.3 Intake Visit Reasons: RIGHT SHOULDER Accompanied by: Self Is patient in pain?: Yes Allergies desvenlafaxine Allergy (Mild, Verified 03/23/25 08:50) Hives Have you fallen in the past year?: No [facility] Medical History (Updated 03/23/25 @ 09:08 by Dru Wilson MD) Right rotator cuff tear Right hip pain Right shoulder pain Chronic sinusitis Hyperlipidemia Insomnia Atrial septal aneurysm Mild mitral valve prolapse Paroxysmal atrial fibrillation Surgical History S/P left rotator cuff repair bicep repair S/P right rotator cuff repair History of repair of anterior cruciate ligament of right knee History of open reduction and internal fixation (ORIF) procedure Family History Mother CVA (cerebral vascular accident) Brother Arthritis Father Pacemaker Social History Smoking Status: Never smoker alcohol intake: current alcohol intake frequency: 0-2 drinks per day Alcohol type: beer and hard liquor substance use type: does not use caffeine: Yes Type: coffee Number of servings: 2 HPI RIGHT SHOULDER Details: This documentation accurately reflects the service provided and the decisions made by me, Dr. Dru Wilson MD 03/23/25 0215. Part of today???s visit was documented by [ ], acting as scribe. DANIEL CHAND is a 70 year old M here today for FU R shoulder MRI. He was actually doing 10 pull-ups this weekend doing a [employer] workout. He has more concerns of weakness but that does cause some pain. Supplemental Info [facility] [address], [place] [id number] Upper Ext Joint Only(Routine) MR#: [id number] Acct: [id number] Name: DANIEL CHAND Rep #: [id number] : 1955 M 69 From: Everton Stewart MD PCP: Dr. Nicole Echeverria, DO Status: REG CLI Study: Upper Ext Joint Only(Routine) Date of Exam: 03/09/25 Exam# [id number] Ordering Dr: Dru Wilson MD PROCEDURE: UPPER EXT JOINT ONLY(ROUTINE) 03/09/2025 REASON FOR EXAM: PAIN, PAST HX OF CUFF REPAIR 20 YRS AGO TECHNIQUE: T1, T2, PD MRI of the right upper Extremity. Multiplanar and multisequence images were obtained without IV contrast administration. COMPARISON: COMPARISON : February 01, 2025 x-ray FINDINGS: Bone Marrow: Artifact is noted from the suture anchor in the superolateral humeral head with prior distal infraspinatus repair. There is a full-thickness, 75% with tear of the distal infraspinatus without retraction. There is a full- thickness, 25% with tear of the distal supraspinatus without retraction. There is severe distal subscapularis tendinopathy without full-thickness tear or retraction. The teres minor appears intact. Medial subluxation of the biceps tendon is noted, without avulsion. There is moderate AC joint hypertrophy without evidence of separation, with subcortical cyst formation noted. There is a type 3 acromion with impingement configuration. The labrum appears intact. There is a trace joint effusion which extends into the subacromial subdeltoid bursa. MRI/Upper Ext Joint Only(Routine) IMPRESSION: Artifact is noted from the suture anchor in the superolateral humeral head with prior distal infraspinatus repair. There is a full-thickness, 75% with tear of the distal infraspinatus without retraction. There is a full-thickness, 25% with tear of the distal supraspinatus without retraction. There is severe distal subscapularis tendinopathy without full-thickness tear or retraction. Medial subluxation of the biceps tendon is noted, without avulsion. There is moderate AC joint hypertrophy without evidence of separation, with subcortical cyst formation noted. There is a type 3 acromion with impingement configuration. There is a trace joint effusion which extends into the subacromial subdeltoid bursa. Reading Location: [facility] Coding Level of Care Code Off vis,est,level 4 Diagnoses Right shoulder pain M25.511 Right rotator cuff tear M75.101 Assessment and Plan (more content not included)... Normal [facility] Serum or plasma IgA measurem ent (mass/volume)Ordered By: Kumar Israel on 03-23-2025 IgA [Mass/Vol] 321 mg/dL 61-437 [facility] Serum or plasma IgG measurem ent (mass/volume)Ordered By: Kumar Israel on 03-23-2025 IgG [Mass/Vol] 1199 mg/dL 603-1613 [facility] Chest WITH Contraston 2024 Chest WITH Contrast [facility] [address] [place], [place] [address] Chest WITH Contrast MR#: [id number] Acct: [id number] Name: DANIEL CHAND Rep #: [id number] : 1955 M 69 From: Rajesh avalos MD PCP: Dr. Nicole Echeverria, DO Status: REG CLI Study: Chest WITH Contrast Date of Exam: 03/16/25 Exam# [id number] Ordering Dr: Nicole Echeverria DO PROCEDURE: CHEST WITH CONTRAST 03/16/2025 REASON FOR EXAM: CT CHEST WITH IV CONTRAST; MASS LIKE OPACITIES PROJECT OVER lower right chest. TECHNIQUE: Prone and supine chest CT with intravenous contrast, high resolution CT (HRCT) protocol. Coronal and Sagittal reconstruction series were provided. CONTRAST: Isovue-300 VOLUME: 100 mL One or more dose reduction techniques were used (e.g., Automated exposure control, adjustment of the mA and/or kV according to patient size, use of iterative reconstruction technique). RADIATION DOSE SUMMARY: CTDlvol: 14 mGy DLP: 303.12 mGycm COMPARISON: None FINDINGS: Hardware: None Lymph nodes: Small mediastinal lymph nodes. Heart and Vasculature: Normal heart size. No pericardial effusion. Mild degree of coronary artery calcification. Lungs and Airways: There are multiple bilateral focal areas of patchy airspace disease more pronounced in the posterior medial segment and superior segment of the right lower lobe. Patchy areas of airspace disease also seen in the lateral anterior aspect of the right lower lobe as well as in the lower lobes and right upper lobe. Radiographic follow-up recommended. Pleura: No evidence of pleural effusion. Upper Abdomen: Unremarkable Bones: Degenerative changes of the thoracic spine. CT/Chest WITH Contrast IMPRESSION: Multiple bilateral pulmonary infiltrates as described worse in the right lower lobe. Radiographic follow-up is recommended. Reading Location: [address]: Dr. Nicole Echeverria DO Peripheral Equipment Operator: Signed Normal [facility] Magnetic resonance imaging r eportOrdered By: Everton Stewart on 03-10-2025 Study report [facility] [address] [place] [address] Upper Ext Joint Only(Routine) MR#: [id number] Acct: [id number] Name: DANIEL CHAND Rep #: [id number] : 1955 M 69 From: Jeffrey Stewart MD PCP: Dr. Nicole Echeverria DO Status: RE G CLI Study:Upper Ext Joint Only(Routine) Date of Exam: 03/09/25 Exam# [id number] Ordering Dr: Dru Wilson MD PROCEDURE: UPPER EXT JOINT ONLY(ROUTINE) 03/09/2025 REASON FOR EXAM: PAIN, PAST HX OF CUFF REPAIR 20 YRS AGO TECHNIQUE: T1, T2, PD MRI of the right upper Extremity. Multiplanar and multisequence images were obtained without IV contrast administration. COMPARISON: COMPARISON : February 01, 2025 x-ray FINDINGS: Bone Marrow: Artifact is noted from the suture anchor in the superolateral humeral head with prior distal infraspinatus repair. There is a full-thickness, 75% with tear of the distal infraspinatus without retraction. There is a full-thickness, 25% with tear of the distal supraspinatus without retraction. There is severe distal subscapularis tendinopathy without full-thickness tear or retraction. The teres minor appears intact. Medial subluxation of the biceps tendon is noted, without avulsion. There is moderate AC joint hypertrophy without evidence of separation, with subcortical cyst formation noted. There is a type 3 acromion with impingement configuration. The labrum appears intact. There is a trace joint effusion which extends into the subacromial subdeltoid bursa. MRI/Upper Ext Joint Only(Routine) IMPRESSION: Artifact is noted from the suture anchor in the superolateral humeral head with prior distal infraspinatus repair. There is a full-thickness, 75% with tear of the distal infraspinatus without retraction. There is a full-thickness, 25% with tear of the distal supraspinatus without retraction. There is severe distal subscapularis tendinopathy without full-thickness tear orretraction. Medial subluxation of the biceps tendon is noted, without avulsion. There is moderate AC joint hypertrophy without evidence of separation, with subcortical cyst formation noted. There is a type 3 acromion with impingement configuration. There is a trace joint effusion which extends into the subacromial subdeltoid bursa. Reading Location: [facility] CC: Dr. Nicole Echeverria DO; Dr. Dru Wilson MD ~ Peripheral Equipment Operator: Signed [facility] Upper Ext Joint Only(Routine )on 03-09-2025 Upper Ext Joint Only(Routine) [facility] [address] [facility] [address] [place], [place] [id number] Upper Ext Joint Only(Routine) MR#: [id number] Acct: [id number] Name: DANIEL CHAND Rep #: [id number] : 1955 M 69 From: Everton Stewart MD PCP: Dr. Nicole Echeverria DO Status: REG CLI Study: Upper Ext Joint Only(Routine) Date of Exam: 0 03/09/25 Exam# [id number] Ordering Dr: Dru Wilson MD PROCEDURE: UPPER EXT JOINT ONLY(ROUTINE) 03/09/2025 REASON FOR EXAM: PAIN, PAST HX OF CUFF REPAIR 20 YRS AGO TECHNIQUE: T1, T2, PD MRI of the right upper Extremity. Multiplanar and multisequence images were obtained without IV contrast administration. COMPARISON: COMPARISON : February 01, 2025 x-ray FINDINGS: Bone Marrow: Artifact is noted from the suture anchor in the superolateral humeral head with prior distal infraspinatus repair. There is a full-thickness, 75% with tear of the distal infraspinatus without retraction. There is a full- thickness, 25% with tear of the distal supraspinatus without retraction. There is severe distal subscapularis tendinopathy without full-thickness tear or retraction. The teres minor appears intact. Medial subluxation of the biceps tendon is noted, without avulsion. There is moderate AC joint hypertrophy without evidence of separation, with subcortical cyst formation noted. There is a type 3 acromion with impingement configuration. The labrum appears intact. There is a trace joint effusion which extends into the subacromial subdeltoid bursa. MRI/Upper Ext Joint Only(Routine) IMPRESSION: Artifact is noted from the suture anchor in the superolateral humeral head with prior distal infraspinatus repair. There is a full-thickness, 75% with tear of the distal infraspinatus without retraction. There is a full-thickness, 25% with tear of the distal supraspinatus without retraction. There is severe distal subscapularis tendinopathy without full-thickness tear or retraction. Medial subluxation of the biceps tendon is noted, without avulsion. There is moderate AC joint hypertrophy without evidence of separation, with subcortical cyst formation noted. There is a type 3 acromion with impingement configuration. There is a trace joint effusion which extends into the subacromial subdeltoid bursa. Reading Location: [facility] CC: Dr. Nicole Echeverria DO; Dr. Dru Wilson MD Peripheral Equipment Operator: Signed Normal [facility] HIP, UNI W/ Pelvis 2-3 Views on 02-01-2025 HIP, UNI W/ Pelvis 2-3 Views [facility] [address] [place] [id number] HIP, UNI W/ Pelvis 2-3 Views MR#: [id number] Acct: [id number] Name: DANIEL CHAND Rep #: [id number] : 1955 69 From: Ranjith Briceno i, DO PCP: Dr. Nicole Echeverria DO Status: DEP AMB Study: HIP, UNI W/ Pelvis 2-3 Views Date of Exam: 05/21 Exam# [id number] Ordering Dr: Dru Wilson MD PROCEDURE: Pelvis and right hip radiographs, three views 02/01/2025 REASON FOR EXAM: PAIN/ PINCHING FEELING, NKI TECHNIQUE: Three views of the pelvis/right hip were obtained COMPARISON: None available FINDINGS: Three views of the pelvis and right hip were obtained. Bones are mildly osteopenic. Mild degenerative changes lower lumbar spine. SI joints are intact. No displaced pelvic or proximal femur fracture. Moderate degenerative change right hip joint. Severe degenerative change left hip joint. No acute fracture or dislocation of the right hip. RAD/HIP, UNI W/ Pelvis 2-3 Views IMPRESSION: Mild osteopenia. No acute bony abnormality of the pelvis/right hip. Moderate degenerative change right hip joint. Severe degenerative change left hip joint. Electronically Signed By: Ranjith worthy 02/01/2025 19:15 Reading Location: [facility] CC: Dr. Nicole Echeverria DO; Dr. Dru Wilson MD Peripheral Equipment Operator: Signed Normal [facility] Orthopedic Visit Reporton Orthopedic Visit Report [facility] [address] [place] [address] OFFICE VISIT Date of Service: 02/01/25 MR#: [id number] Acct: [id number] Name: DANIEL CHAND Rep #: [id number] : 1955 Provider: Dr. Dru worthy MD Age/Sex: 69/M Location: [facility].REMI Status: Signed Intake Vital Signs 04/17/23 09:59 02/01/25 08:59 Height 6 ft 6 ft Weight: 172 lb 4 oz BMI 23.3 Intake Visit Reasons: RIGHT SHOULDER Chief Complaint: Right shoulder right hip pian Accompanied by: Self Is patient in pain?: Yes Pain scale (1-10): 1 Allergies desvenlafaxine Allergy (Mild, Verified 02/01/25 09:03) Hives Medications ???Medication ???Instructions ???Recorded ???Confirmed ???Type folic acid 15 mg tablet 15 mg PO DAILY 04/15/23 02/01/25 H istory magnesium oxide 500 mg PO DAILY 04/15/23 02/01/25 History turmeric root extract 500 mg 500 mg PO DAILY 04/15/23 02/01/25 History capsule cyanocobalamin-liver extract tablet 1 tab PO DAILY 04/17/23 5 History Have you fallen in the past year?: No PFSH Medical History (Updated 02/01/25 @ 09:28 by Dru Wilson MD) Right hip pain Right shoulder pain Chronic sinusitis Hyperlipidemia Insomnia Atrial septal aneurysm Mild mitral valve prolapse Paroxysmal atrial fibrillation Surgical History S/P left rotator cuff repair bicep repair S/P right rotator cuff repair History of repair of anterior cruciate ligament of right knee History of open reduction and internal fixation (ORIF) procedure Family History Mother CVA (cerebral vascular accident) Brother Arthritis Father Pacemaker Social History Smoking Status: Never smoker alcohol intake: current alcohol intake frequency: 0-2 drinks per day Alcohol type: beer and hard liquor substance use type: does not use caffeine: Yes Type: coffee Number of servings: 2 HPI RIGHT SHOULDER Details: This documentation accurately reflects the service provided and the decisions made by me, Dr. Dru Wilson MD 02/01/25 0824. Part of today???s visit was documented by [ ], acting as scribe. DANIEL CHAND is a 69 year old M here today for right shoulder pain. Patient had a rotator cuff repair [address] Shah [facility]. Has been doing well since then. Has pain with lifting and reaching. Has done home exercises and rehab exercises as much as possible. There is quite a bit of crepitus with range of motion testing of the shoulder. No recent treatment. He is concerned about the buttons with the screws getting loose and there. He also wants an x-ray of his right hip. Supplemental Info MRI/Upper Ext Joint Only(Routine) IMPRESSION: Low-grade partial-thickness tear and postoperative scarring of the supraspinatus tendon. Mild acromioclavicular arthrosis. Electronically Signed: Matheus Herbert MD at 8:55 EST Tel , Service support , X-rays 4 views of the right shoulder demonstrate mild OA, metal anchor, mild superior migration. X-rays 2 views of the right hip demonstrate moderate OA Coding Level of Care Code Off vis,new,level 3 Diagnoses Right shoulder pain M25.511 S/P right rotator cuff repair Z98.890 Right hip pain M25.551 Assessment and Plan Assessment and Plan (1) Right shoulder pain: Status: Acute Plan: 69-year-old man with evidence 6 yrs ago on MRI of a small partial-thickness rotator cuff tear in the setting postoperative from rotator cuff repair 20 years ago. Patient actually stated at the end of the appointment it feels like it slips out given the superior humeral head migration age and a history of having rotator cuff repair about 20 years ago he could have a large tear that is well compensated. I will go ahead and order an MRI of the right shoulder to assess for that and follow- up after that. The patient understands no further questions or concerns. Patient counselled on non-operative and operative means of treating shoulder pain. Conservative options include but not limited to: 1. Rest and Activity Modification: Giving your shoulder time to heal by avoiding movements that cause pain can help. This may involve limiting overhead activities or heavy lifting. 2. Physical Therapy: A physical therapist can guide you through exercises that strengthen the muscles around the shoulder, improve flexibility, and reduce strain on the rotator cuff tendon. 3. Ice and Heat Therapy: Applying ice to the shoulder can help reduce swelling and pain, especially after activity. Heat can be helpful to relax (more content not included)... Normal [facility] Shoulder min 2 Viewson 02-01 Shoulder min 2 Views [facility] [address] [place] [address] Shoulder min 2 Views MR#: [id number] Acct: [id number] Name: DANIEL CHAND Rep #: [id number] : 1955 M 69 From: Ranjith Briceno i DO PCP: Dr. Nicole Echeverria, DO Status: DEP AMB Study: Shoulder min 2 Views Date of Exam: 02/01/25 Exam# [id number] Ordering Dr: Dru Wilson MD PROCEDURE: Right shoulder radiographs, four views 02/01/2025 REASON FOR EXAM: FEELING OF SHOULDER CATCHING, PAIN TECHNIQUE: Four views of the right shoulder were obtained. COMPARISON: None available FINDINGS: Four views of the right shoulder were obtained. A metallic surgical anchor projects over the central right humeral head. No acute fracture or dislocation. Mild degenerative change right acromioclavicular joint. Mild narrowing of the subacromial space. Moderate degenerative change right glenohumeral joint. There is slight superior subluxation of the right humeral head relative to the glenoid on image 2. There are abnormal masslike opacities projecting over the mid to upper right lung and the right perihilar region, measuring up to 5.3 cm. RAD/Shoulder min 2 Views IMPRESSION: Osteopenia. No acute bony abnormality of the right shoulder. Mild degenerative change right acromioclavicular joint. Moderate degenerative change right glenohumeral joint. Mild narrowing of the subacromial space, with some superior subluxation of the right humeral head relative to the glenoid. The findings could be due to chronic rotator cuff tear. A metallic surgical anchor projects over the central right humeral head, which may be from prior rotator cuff repair. Abnormal masslike opacities project over the mid to upper right lung/right hilar region, measuring up to 5.3 cm. The findings are worrisome for malignancy/metastatic disease. Further evaluation with contrast-enhanced chest CT is recommended. A voicemail was left on the ordering physician's phone at 7:22 p.m. Eastern standard time on 02/01/2025. Reading Location: [facility] CC: Dr. Nicole Echeverria DO; Dr. Dru Wilson MD Peripheral Equipment Operator: Signed Normal [facility] Nasopharyngeal Cultureon NAC Acinetobacter baumannii Amount Growth Very Rare Staphylococcus aureus Staphylococcus aureus Acinetobacter baumannii: REACTION Ampicillin+Sulbac Islt GARCIA <=2 S levoFLOXacin Islt GARCIA <=0.12 Meropenem Islt GARCIA <=0.25 S Pip+Tazo Islt GARCIA <=4 S TMP SMX Islt GARCIA <=20 S Staphylococcus aureus: REACTION cefOXitin Susc Islt NEG Doxycycline Islt GARCIA <=0.5 Clindamycin Islt GARCIA 0.25 S Clindamycin.induced Susc Islt NEG Erythromycin Islt GARCIA <=0.25 S Gentamicin Islt GARCIA <=0.5 S Linezolid Islt GARCIA 2 S Moxifloxacin Islt GARCIA <=0.25 S Oxacillin Susc Islt 0.5 S Tetracycline Islt GARCIA <=1 S TMP SMX Islt GARCIA <=10 S Vancomycin Islt GARCIA 1 S Normal [facility] Comment on above: Performed By: #### M 100.2500, M100.1999 #### [facility] [address] [place], [address] Gram Stainon 01-02-2025 GS Positive Normal [facility] Comment on above: Performed By: #### M 100.2500, M100.2000 #### [facility] [address] [place], [address] Gram stainOrdered By: Fer Swain on 01-01-2025 Microscopic observation Gram stain Nom (Unsp spec) [facility] Nasopharyngeal cultureOrdere d By: Jerrod Swain on 01-01-2025 Nasopharyngeal Culture Acinetobacter baumannii Abnormal [facility] Nasopharyngeal Culture Staphylococcus aureus Abnormal [facility] Sinus/Facial Boneon 12-25-19 Sinus/Facial Bone [facility] [address] [place] [address] Sinus/Facial Bone MR#: [id number] Acct: [id number] Name: DANIEL CHAND Rep #: [id number] : 1955 M 69 From: Rajesh avalso MD PCP: Dr. Nicole Echeverria, Status: REG CLI Study: Sinus/Facial Bone Date of Exam: 12/25/24 Exam# [id number] Ordering Dr: Nicole Echeverria DO PROCEDURE: SINUS/FACIAL BONE REASON FOR EXAM: Chronic history of sinus congestion. TECHNIQUE: CT of the paranasal sinuses with contrast. CONTRAST: COMPARISON: None. FINDINGS: Frontal: Frontal sinuses and frontoethmoidal recesses appear clear. Ethmoid: Mucosal thickening of the ethmoid sinuses. Sphenoid: Sphenoid sinuses and sphenoethmoidal recesses appear clear. Maxillary: Opacification of the maxillary sinus bilaterally more prominent on the right side. The right ostiomeatal complex is obliterated due to soft tissue prominence. Turbinates: Unremarkable. Nasal Septum: Midline. No large nasal septal spur. Mastoids/Middle Ears: Clear at visualized levels. Visualized intracranial structures are unremarkable. No suspicious contrast enhancement. CT/Sinus/Facial Bone IMPRESSION: Opacification of both maxillary sinuses worse on the right side. Mucosal thickening of the ethmoid sinuses. One or more dose reduction techniques were used (e.g., Automated exposure control, adjustment of the mA and/or kV according to patient size, use of iterative reconstruction technique). Reading Location: [id number] CC: Dr. Nicole Echeverria, Peripheral Equipment Operator: Signed Normal [facility] Gram stain for investigation of transfusion reactionOrdered By: Rory Hines on 02-11-2024 Microscopic observation Gram stain Nom (Unsp spec) [facility] No Panel InformationOrdered By: Rory Hines on 02-11-2024 Nasopharyngeal Culture No growth in 48 hours. [facility] Absolute lymphocyte countOrd ered By: Dr. Rankin on 04-17-2023 Lymphocytes Auto (Unsp spec) [#/Vol] 1.59 10*3/uL 0.83-4.51 [facility] Basophil percentageOrdered B y: Dr. Rankin on 04-17-2023 Basophils/100 WBC (Bld) 0.7 % 0-1 [facility] Chloride [Moles/Vol] 108 mmol/L 98-107 [facility] Eosinophils/100 WBC (Bld) 5.5 % 0-5 [facility] Glucose [Mass/Vol] 91 mg/dL 74-106 [facility] Neutrophils (Bld) [#/Vol] 2.9 10*3/uL 2.0-7.7 [facility] Neutrophils/100 WBC (Bld) 52.4 % 47-70 [facility] Potassium [Moles/Vol] 4.5 mmol/L 3.5-5.1 [facility] Sodium [Moles/Vol] 138 mmol/L 136-145 [facility] WBC (Bld) [#/Vol] 5.5 10*3/uL 4.4-11.0 [facility] Blood erythrocytes count (nu mber/volume)Ordered By: Dr. Rankin on 04-17-2023 RBC (Bld) [#/Vol] 5.29 10*6/uL 4.6-6.2 [facility] Blood hemoglobin measurement (mass/volume)Ordered By: Dr. Rankin on 04-17-2023 Hemoglobin (Bld) [Mass/Vol] 16.0 g/dL 13.0-16.5 [facility] Blood lymphocytes/100 leukoc ytesOrdered By: Dr. Rankin on 04-17-2023 Lymphocytes/100 WBC (Bld) 29.1 % 19-41 [facility] Blood monocytes/100 leukocyt esOrdered By: Dr. Rankin on 04-17-2023 Monocytes/100 WBC (Bld) 12.1 % 0-10 [facility] Blood platelet mean volumeOr dered By: Dr. Rankin on 04-17-2023 Platelet mean volume (Bld) [Entitic vol] 10.2 fL 6.2-12.0 [facility] Determination of erythrocyte mean corpuscular volume (MCV)Ordered By: Dr. Rankin on 04-17-2023 MCV (RBC) [Entitic vol] 91.5 fL 80-94 [facility] Hematocrit Auto (Bld) [Volum e fraction]Ordered By: Dr. Rankin on 04-17-2023 Hematocrit (Bld) [Volume fraction] 48.4 % 40-54 [facility] - Chemistry and C hemistry - challengeOrdered By: Dr. Rankin on 04-17-2023 CO2 [Moles/Vol] 27.0 mmol/L 21.0-32.0 [facility] Urea nitrogen/Creatinine [Mass ratio] 19.5 mg/mg 10-20 [facility] - Hematology and Cell countsOrdered By: Dr. Rankin on 04-17-2023 Erythrocyte distribution width (RBC) [Entitic vol] 48.0 fL 35.1-43.9 [facility] Erythrocyte distribution width (RBC) [Ratio] 14.4 % 11.6-14.6 [facility] Immature granulocytes/100 WBC (Bld) 0.200 % 0.0-0.9 [facility] Comment on above: IG% - Immature Granu locytes (promyelocytes, myelocytes and metamyelocytes) > 1% indicates that a LEFT SHIFT is Present. MCH (RBC) [Entitic mass] 30.2 pg 27.0-32.0 [facility] Nucleated RBC/100 WBC (Bld) [Ratio] 0 % 0-5 [facility] MCHC Auto (RBC) [Mass/Vol]Or dered By: Dr. Rankin on 04-17-2023 MCHC (RBC) [Mass/Vol] 33.1 g/dL 32-36 [facility] No Panel InformationOrdered By: Dr. Rankin on 04-17-2023 Estimated GFR (MDRD) Amer 112 mL/min >60 [facility] Comment on above: GFR Calc Estimated GFR (MDRD) Non-Af Amer 92 mL/min >60 [facility] Comment on above: Non- GFR Calc Thyroid Stimulating Hormone (TSH) 1.11 uIU/mL 0.358-3.74 [facility] Platelets bldOrdered By: Dr. Rankin on 04-17-2023 Platelets (Bld) [#/Vol] 180 10*3/uL 150-450 [facility] Serum or plasma calcium merrill urement (mass/volume)Ordered By: Dr. Rankin on 04-17-2023 Calcium [Mass/Vol] 8.8 mg/dL 8.5-10.1 [facility] Serum or plasma creatinine m easurement (mass/volume)Ordered By: Dr. Rankin on 04-17-2023 Creatinine [Mass/Vol] 0.87 mg/dL 0.70-1.30 [facility] Comment on above: The validity of the calculated GFR & GFRAA in patients over 70 years has not been determined. Clinical correlation is essential. Serum or plasma urea nitroge n measurement (mass/volume)Ordered By: Dr. Rankin on 04-17-2023 Urea nitrogen [Mass/Vol] 17 mg/dL 7-18 [facility] Thin prep Papanicolaou smear with manual screeningOrdered By: Dr. Rankin on 04-17-2023 Thin prep Papanicolaou smear with manual screening 3 5-15 [facility] MISCon 04-03-2023 Misc. Send Out See Comments Normal [facility] ([place]) Comment on above: Result Comment: Comp lete reference lab report scanned to EMR. Performed By: #### C ARDIM, ANEU, ADIFF, CARDIG, CBC, CARDIA #### [place] [address] [place], [place] [address] [facility] 03-15-2023 Cardiolipin IgA Ab 13.1 APL High <12.0 [facility] ([place]) Comment on above: Result Comment: <12 APL Negative 12-20 APL Indeterminate >20 APL Positive The following results were obtained with the Inova QUANTA Lite VICKI IgA III NASH. Cardiolipin IgA values obtained with the different manufacturers' assay methods may not be used interchangeably. The magnitude of the reported IgA levels cannot be correlated to an endpoint titer. This test is used as an aid in diagnosis of anti-phospholipid syndrome. The test may occasionally be positive in patients with a range of underlying conditions, secondary syphilis, HIV infection, active Hepatitis C, endocarditis, among others. Clinical correlation is required. Performed By: [facility] [place] [address] Clearance Coordinator: Azael Pratt III, M.D. CLIA#: [id number] Performed By: #### C ARDIM, ANEU, ADIFF, CARDIG, CBC, CARDIA #### [place] [address] [address] [facility] 03-15-2023 IgG Cardiolipin Ab <9.0 Normal <15.0 [facility] ([place]) Comment on above: Result Comment: <15 GPL Negative 15-20 GPL Indeterminate >20 GPL Positive The following results were obtained with the Inova QUANTA Lite VICKI IgG III NASH. Cardiolipin IgG values obtained with the different manufacturers' assay methods may not be used interchangeably. The magnitude of the reported IgG levels cannot be correlated to an endpoint titer. This test is used as an aid in diagnosis of anti-phospholipid syndrome. The test may occasionally be positive in patients with a range of underlying conditions, secondary syphilis, HIV infection, active Hepatitis C, endocarditis, among others. Clinical correlation is required. Performed By: [facility] [place] [id number] Clearance Coordinator: Azael Pratt III, M.D. CLIA#: [id number] Performed By: #### C EWELINA PARK ADIFF, CARDIG, CBC, CARDIA #### [place] [id number] CARDIM[facility] 03-15-2023 IgM Cardiolipin Ab 42.2 MPL High <12.5 [facility] ([place]) Comment on above: Result Comment: <12. 5 MPL Negative 12.5-20 MPL Indeterminate >20 MPL Positive The following results were obtained with the SenGenixA Lite VICKI IgM III NASH. Cardiolipin IgM values obtained with the different manufacturers' assay methods may not be used interchangeably. The magnitude of the reported IgM levels cannot be correlated to an endpoint titer. ??? This test is used as an aid in diagnosis of anti-phospholipid syndrome. The test may occasionally be positive in patients with a range of underlying conditions, secondary syphilis, HIV infection, active Hepatitis C, endocarditis, among others. Clinical correlation is required. Performed By: [facility] [address] [place] [address] Clearance Coordinator: Azael Pratt III, M.D. CLIA#: [id number] Performed By: #### C EWELINA PARK ADIFF, CARDIG, CBC, CARDIA #### [place] [address] .Auto Diffon 03-14-2023 Basophil, Absolute 0.0 10 3/mcL Normal 0.0-0.2 [facility] ([place]) Comment on above: Performed By: #### C EWELINA PARK ADIFF, CARDIG, CBC, CARDIA #### [place] [id number] Basophils/100 WBC (Bld) 0.8 % Normal 0.0-2.5 [facility] ([place]) Comment on above: Performed By: #### C XAVIER ANEU, ADIFF, CARDIG, CBC, CARDIA #### [place] [id number] Eosinophil, Absolute 0.3 10 3/mcL Normal 0.0-0.4 [facility] ([place]) Comment on above: Performed By: #### C ARDIM, ANEU, ADIFF, CARDIG, CBC, CARDIA #### [address] [address] Eosinophils/100 WBC (Bld) 5.7 % Normal 0.0-7.0 [facility] ([place]) Comment on above: Performed By: #### C ARDIM, ANEU, ADIFF, CARDIG, CBC, CARDIA #### [address] [address] Lymphocyte, Absolute 1.4 10 3/mcL Normal 0.8-3.9 [facility] ([place]) Comment on above: Performed By: #### C ARDIM, ANEU, ADIFF, CARDIG, CBC, CARDIA #### [address] [address] Lymphocytes/100 WBC (Bld) 26.9 % Normal 10.0-50.0 [facility] ([place]) Comment on above: Performed By: #### C ARDIM, ANEU, ADIFF, CARDIG, CBC, CARDIA #### [address] [address] Monocyte, Absolute 0.8 10 3/mcL Normal 0.2-1.0 [facility] ([place]) Comment on above: Performed By: #### C ARDIM, ANEU, ADIFF, CARDIG, CBC, CARDIA #### [address] [address] Monocytes/100 WBC (Bld) 15.6 % High 1.7-13.0 [facility] ([place]) Comment on above: Performed By: #### C ARDIM, ANEU, ADIFF, CARDIG, CBC, CARDIA #### [address] [address] Neutrophils/100 WBC (Bld) 51.0 % Normal 37.0-80.0 [facility] ([place]) Comment on above: Performed By: #### C ARDIM, ANEU, ADIFF, CARDIG, CBC, CARDIA #### [address] [address] .NEUABSon 03-14-2023 Neutrophil, Absolute 2.7 10 3/mcL Low 2.9-6.2 [facility] ([place]) Comment on above: Performed By: #### C XAVIER ANEU, ADIFF, CARDIG, CBC, CARDIA #### [address] [address] CBCon 03-14-2023 Erythrocyte distribution width (RBC) [Ratio] 14.5 % Normal 11.5-14.5 [facility] ([place]) Comment on above: Performed By: #### C ELIASM, ANEU, ADIFF, CARDIG, CBC, CARDIA #### [address] [address] Hematocrit (Bld) [Volume fraction] 46.5 % Normal 42.0-52.0 [facility] ([place]) Comment on above: Performed By: #### C XAVIER, ANEU, ADIFF, CARDIG, CBC, CARDIA #### [address] [address] Hgb 15.8 G/dL Normal 14.0-18.0 [facility] ([place]) Comment on above: Performed By: #### C XAVIER ANEU, ADIFF, CARDIG, CBC, CARDIA #### [address] [address] MCH (RBC) [Entitic mass] 30.0 pg Normal 27.0-31.2 [facility] ([place]) Comment on above: Performed By: #### C XAVIER, ANEU, ADIFF, CARDIG, CBC, CARDIA #### [address] [address] MCHC 33.9 G/dL Normal 31.8-35.4 [facility] ([place]) Comment on above: Performed By: #### C ELIASM, ANEU, ADIFF, CARDIG, CBC, CARDIA #### [address] [address] MCV (RBC) [Entitic vol] 88.4 fL Normal 80.0-94.0 [facility] ([place]) Comment on above: Performed By: #### C ARDIM, ANEU, ADIFF, CARDIG, CBC, CARDIA #### [address] [address] Platelet 179 10 3/mcL Normal 130-400 [facility] ([place]) Comment on above: Performed By: #### C ARDIM, ANEU, ADIFF, CARDIG, CBC, CARDIA #### [address] [address] Platelet mean volume (Bld) [Entitic vol] 8.7 fL Normal 7.4-10.4 [facility] ([place]) Comment on above: Performed By: #### C ARDIM, ANEU, ADIFF, CARDIG, CBC, CARDIA #### [address] [address] RBC 5.26 10 6/mcL Normal 4.04-6.13 [facility] ([place]) Comment on above: Performed By: #### C ARDIM, ANEU, ADIFF, CARDIG, CBC, CARDIA #### [address] [address] WBC 5.3 10 3/mcL Normal 4.6-10.8 [facility] ([place]) Comment on above: Performed By: #### C ARDIM, ANEU, ADIFF, CARDIG, CBC, CARDIA #### [address] [address] Throat specimen bacteria harry ntification by cultureOrdered By: Roya Patel on 01-10-2023 Bacteria identified Cx Nom (Throat) streptococcus isolated. [facility] MISCon 11-15-2022 [facility]. Send Out See Comments Normal [facility] ([place]) Comment on above: Result Comment: Comp lete reference lab report scanned to EMR. Performed By: #### C ARDIM, ANEU, ADIFF, CARDIG, CBC, CARDIA #### [address] [address] .Auto Diffon 11-06-2022 Basophil, Absolute 0.1 10 3/mcL Normal 0.0-0.2 [facility] ([place]) Comment on above: Performed By: #### U BEBE, ADIFF, MISC, GFR, ANEU, CBC, CMP #### [address] [address] Basophils/100 WBC (Bld) 0.8 % Normal 0.0-2.5 [facility] ([place]) Comment on above: Performed By: #### U BEBE, ADIFF, MISC, GFR, ANEU, CBC, CMP #### [address] [address] Eosinophil, Absolute 0.3 10 3/mcL Normal 0.0-0.4 [facility] ([place]) Comment on above: Performed By: #### U BEBE, ADIFF, MISC, GFR, ANEU, CBC, CMP #### [address] [address] Eosinophils/100 WBC (Bld) 4.6 % Normal 0.0-7.0 [facility] ([place]) Comment on above: Performed By: #### U BEBE, ADIFF, MISC, GFR, ANEU, CBC, CMP #### [address] [address] Lymphocyte, Absolute 1.3 10 3/mcL Normal 0.8-3.9 [facility] ([place]) Comment on above: Performed By: #### U BEBE, ADIFF, MISC, GFR, ANEU, CBC, CMP #### [address] [address] Lymphocytes/100 WBC (Bld) 18.5 % Normal 10.0-50.0 [facility] ([place]) Comment on above: Performed By: #### U BEBE, ADIFF, MISC, GFR, ANEU, CBC, CMP #### [address] [address] Monocyte, Absolute 0.9 10 3/mcL Normal 0.2-1.0 [facility] ([place]) Comment on above: Performed By: #### U BEBE, ADIFF, MISC, GFR, ANEU, CBC, CMP #### [address] [address] Monocytes/100 WBC (Bld) 12.5 % Normal 1.7-13.0 [facility] ([place]) Comment on above: Performed By: #### U BEBE, ADIFF, MISC, GFR, ANEU, CBC, CMP #### [address] [address] Neutrophils/100 WBC (Bld) 63.6 % Normal 37.0-80.0 [facility] ([place]) Comment on above: Performed By: #### U BEBE, ADIFF, MISC, GFR, ANEU, CBC, CMP #### [address] [address] .GFRon 11-06-2022 GFR 87 ml/min/1.73sqm Normal [facility] ([place]) Comment on above: Result Comment: GFR Population mean for , Non- Americans Ages 20-29 = 116 mL/min/1.73 sq.m. Ages 30-39 = 107 mL/min/1.73 sq.m. Ages 40-49 = 99 mL/min/1.73 sq.m. Ages 50-59 = 93 mL/min/1.73 sq.m. Ages 60-69 = 85 mL/min/1.73 sq.m. Ages 70+ = 75 mL/min/1.73 sq.m. Chronic Kidney Disease: Less than 60 mL/min/1.73 square meters End Stage Renal Disease: Less than 15 mL/min/1.73 square meters Performed By: #### C ARDIM, ANEU, ADIFF, CARDIG, CBC, CARDIA #### [address] [address] GFR Non- 72 ml/min/1.73sqm Normal [facility] ([place]) Comment on above: Result Comment: GFR Population mean for , Non- Americans Ages 20-29 = 116 mL/min/1.73 sq.m. Ages 30-39 = 107 mL/min/1.73 sq.m. Ages 40-49 = 99 mL/min/1.73 sq.m. Ages 50-59 = 93 mL/min/1.73 sq.m. Ages 60-69 = 85 mL/min/1.73 sq.m. Ages 70+ = 75 mL/min/1.73 sq.m. Chronic Kidney Disease: Less than 60 mL/min/1.73 square meters End Stage Renal Disease: Less than 15 mL/min/1.73 square meters Performed By: #### C ARDIM, ANEU, ADIFF, CARDIG, CBC, CARDIA #### [address] [address] .NEUABSon 11-06-2022 Neutrophil, Absolute 4.3 10 3/mcL Normal 2.9-6.2 [facility] ([place]) Comment on above: Performed By: #### U BEBE, ADIFF, MISC, GFR, ANEU, CBC, CMP #### [place] [address] CBCon 11-06-2022 Erythrocyte distribution width (RBC) [Ratio] 15.1 % High 11.5-14.5 [facility] ([place]) Comment on above: Performed By: #### U BEBE, ADIFF, MISC, GFR, ANEU, CBC, CMP #### [place] [address] Hematocrit (Bld) [Volume fraction] 44.4 % Normal 42.0-52.0 [facility] ([place]) Comment on above: Performed By: #### U BEBE, ADIFF, MISC, GFR, ANEU, CBC, CMP #### [address] [address] Hgb 15.0 G/dL Normal 14.0-18.0 [facility] ([place]) Comment on above: Performed By: #### U BEBE, ADIFF, MISC, GFR, ANEU, CBC, CMP #### [place] [id number] MCH (RBC) [Entitic mass] 30.5 pg Normal 27.0-31.2 [facility] ([place]) Comment on above: Performed By: #### U BEBE, ADIFF, MISC, GFR, ANEU, CBC, CMP #### [place] [address] MCHC 33.8 G/dL Normal 31.8-35.4 [facility] ([place]) Comment on above: Performed By: #### U BEBE, ADIFF, MISC, GFR, ANEU, CBC, CMP #### [address] [address] MCV (RBC) [Entitic vol] 90.3 fL Normal 80.0-94.0 [facility] ([place]) Comment on above: Performed By: #### U BEBE, ADIFF, MISC, GFR, ANEU, CBC, CMP #### [address] [address] Platelet 193 10 3/mcL Normal 130-400 [facility] ([place]) Comment on above: Performed By: #### U BEBE, ADIFF, MISC, GFR, ANEU, CBC, CMP #### [address] [address] Platelet mean volume (Bld) [Entitic vol] 8.6 fL Normal 7.4-10.4 [facility] ([place]) Comment on above: Performed By: #### U BEBE, ADIFF, MISC, GFR, ANEU, CBC, CMP #### [address] [address] RBC 4.92 10 6/mcL Normal 4.04-6.13 [facility] ([place]) Comment on above: Performed By: #### U BEBE, ADIFF, MISC, GFR, ANEU, CBC, CMP #### [address] [address] WBC 6.8 10 3/mcL Normal 4.6-10.8 [facility] ([place]) Comment on above: Performed By: #### U BEBE, ADIFF, MISC, GFR, ANEU, CBC, CMP #### [address] [address] CMPon 11-06-2022 Albumin Level 4.1 G/dL Normal 3.4-4.8 [facility] ([place]) Comment on above: Performed By: #### C ARDIM, ANEU, ADIFF, CARDIG, CBC, CARDIA #### [address] [address] Albumin/Globulin [Mass ratio] 1.3 {ratio} Normal 1.1-2.5 [facility] ([place]) Comment on above: Performed By: #### C ARDIM, ANEU, ADIFF, CARDIG, CBC, CARDIA #### [address] [address] ALP [Catalytic activity/Vol] 116 U/L Normal 40-135 [facility] ([place]) Comment on above: Performed By: #### C ARDIM, ANEU, ADIFF, CARDIG, CBC, CARDIA #### [address] [address] ALT [Catalytic activity/Vol] 34 U/L Normal 16-63 [facility] ([place]) Comment on above: Performed By: #### C ARDIM, ANEU, ADIFF, CARDIG, CBC, CARDIA #### [address] [address] AST [Catalytic activity/Vol] 30 U/L Normal 10-40 [facility] ([place]) Comment on above: Performed By: #### C ARDIM, ANEU, ADIFF, CARDIG, CBC, CARDIA #### [address] [address] Bili Total 0.8 mg/dL Normal 0.2-1.0 [facility] ([place]) Comment on above: Result Comment: Use of this assay is not recommended for patients undergoing treatment with eltrombopag due to the potential for falsely elevated results. Performed By: #### C ARDIM, ANEU, ADIFF, CARDIG, CBC, CARDIA #### [address] [address] BUN/Creatinine Ratio 22 ratio Normal 7-27 [facility] ([place]) Comment on above: Performed By: #### C ARDIM, ANEU, ADIFF, CARDIG, CBC, CARDIA #### [address] [address] Calcium [Mass/Vol] 9.7 mg/dL Normal 8.4-10.2 [facility] ([place]) Comment on above: Performed By: #### C ARDIM, ANEU, ADIFF, CARDIG, CBC, CARDIA #### [address] [address] Chloride [Moles/Vol] 104 mmol/L Normal 98-107 [facility] ([place]) Comment on above: Performed By: #### C ARDIM, ANEU, ADIFF, CARDIG, CBC, CARDIA #### [address] [address] CO2 [Moles/Vol] 26 mmol/L Normal 23-31 [facility] ([place]) Comment on above: Performed By: #### C ARDIM, ANEU, ADIFF, CARDIG, CBC, CARDIA #### [address] [address] Creatinine [Mass/Vol] 1.03 mg/dL Normal 0.70-1.30 [facility] ([place]) Comment on above: Performed By: #### C ARDIM, ANEU, ADIFF, CARDIG, CBC, CARDIA #### [address] [address] Electrolyte Balance 13.0 mEq/L Normal 4.0-15.0 [facility] ([place]) Comment on above: Performed By: #### C ARDIM, ANEU, ADIFF, CARDIG, CBC, CARDIA #### [address] [address] Globulin 3.2 G/dL Normal [facility] ([place]) Comment on above: Performed By: #### C ARDIM, ANEU, ADIFF, CARDIG, CBC, CARDIA #### [address] [address] Glucose [Mass/Vol] 85 mg/dL Normal 80-115 [facility] ([place]) Comment on above: Performed By: #### C ARDIM, ANEU, ADIFF, CARDIG, CBC, CARDIA #### [address] [address] Potassium [Moles/Vol] 4.6 mmol/L Normal 3.5-5.1 [facility] ([place]) Comment on above: Performed By: #### C ARDIM, ANEU, ADIFF, CARDIG, CBC, CARDIA #### [address] [address] Sodium [Moles/Vol] 143 mmol/L Normal 136-145 [facility] ([place]) Comment on above: Performed By: #### C ARDIM, ANEU, ADIFF, CARDIG, CBC, CARDIA #### [address] [address] Total Protein 7.3 G/dL Normal 6.4-8.2 [facility] ([place]) Comment on above: Performed By: #### C ARDIM, ANEU, ADIFF, CARDIG, CBC, CARDIA #### [address] [place], [place] [address] Urea nitrogen [Mass/Vol] 23 mg/dL High 7-18 [facility] ([place]) Comment on above: Performed By: #### C ARDIM, ANEU, ADIFF, CARDIG, CBC, CARDIA #### [address] [address] LABORATORYOrdered By: SYSTEM SYSTEM on 11-06-2022 Albumin BCP dye [Mass/Vol] 4.1 G/dL Invalid Interpretation Code 3.4 - 4.8 G/dL AO ADM SS Albumin/Globulin [Mass ratio] 1.3 {ratio} Invalid Interpretation Code 1.1 - 2.5 ratio AO ADM SS ALP [Catalytic activity/Vol] 116 U/L Invalid Interpretation Code 40 - 135 U/L AO ADM SS ALT With P-5'-P [Catalytic activity/Vol] 34 U/L Invalid Interpretation Code 16 - 63 U/L AO ADM SS AST With P-5'-P [Catalytic activity/Vol] 30 U/L Invalid Interpretation Code 10 - 40 U/L AO ADM SS Bilirubin [Mass/Vol] 0.8 mg/dL Invalid Interpretation Code 0.2 - 1.0 mg/dL AO ADM SS Calcium [Mass/Vol] 9.7 mg/dL Invalid Interpretation Code 8.4 - 10.2 mg/dL AO ADM SS Chloride [Moles/Vol] 104 mmol/L Invalid Interpretation Code 98 - 107 mmol/L AO ADM SS CO2 [Moles/Vol] 26 mmol/L Invalid Interpretation Code 23 - 31 mmol/L AO ADM SS Creatinine [Mass/Vol] 1.03 mg/dL Invalid Interpretation Code 0.70 - 1.30 mg/dL AO ADM SS Electrolyte Balance 13.0 mEq/L Invalid Interpretation Code 4.0 - 15.0 mEq/L AO ADM SS GFR 87 ml/min/1.73sqm Invalid Interpretation Code AO Chemistry S GFR Non- 72 ml/min/1.73sqm Invalid Interpretation Code AO Chemistry S Globulin 3.2 G/dL Invalid Interpretation Code AO ADM SS Glucose [Mass/Vol] 85 mg/dL Invalid Interpretation Code 80 - 115 mg/dL AO ADM SS Potassium [Moles/Vol] 4.6 mmol/L Invalid Interpretation Code 3.5 - 5.1 mmol/L AO ADM SS Protein [Mass/Vol] 7.3 G/dL Invalid Interpretation Code 6.4 - 8.2 G/dL AO ADM SS Sodium [Moles/Vol] 143 mmol/L Invalid Interpretation Code 136 - 145 mmol/L AO ADM SS Urea nitrogen [Mass/Vol] 23 mg/dL Invalid Interpretation Code 7 - 18 mg/dL AO ADM SS Urea nitrogen/Creatinine [Mass ratio] 22 ratio Invalid Interpretation Code 7 - 27 ratio AO ADM SS Uric Acid Lvl 5.2 mg/dL Invalid Interpretation Code 3.5 - 7.2 mg/dL AO ADM SS LABORATORYOrdered By: Danita Villalobos on 11-06-2022 Basophil, Absolute 0.1 103/mcL Invalid Interpretation Code 0.0 - 0.2 10^3/mcL AO Workflow SS Basophils/100 WBC (Bld) 0.8 % Invalid Interpretation Code 0.0 - 2.5 % AO Workflow SS Eosinophil, Absolute 0.3 103/mcL Invalid Interpretation Code 0.0 - 0.4 10^3/mcL AO Workflow SS Eosinophils/100 WBC (Bld) 4.6 % Invalid Interpretation Code 0.0 - 7.0 % AO Workflow SS Erythrocyte distribution width (RBC) [Ratio] 15.1 % Invalid Interpretation Code 11.5 - 14.5 % AO Workflow SS Hematocrit (Bld) [Volume fraction] 44.4 % Invalid Interpretation Code 42.0 - 52.0 % AO Workflow SS Hemoglobin (Bld) [Mass/Vol] 15.0 G/dL Invalid Interpretation Code 14.0 - 18.0 G/dL AO Workflow SS Lymphocyte, Absolute 1.3 103/mcL Invalid Interpretation Code 0.8 - 3.9 10^3/mcL AO Workflow SS Lymphocytes/100 WBC (Bld) 18.5 % Invalid Interpretation Code 10.0 - 50.0 % AO Workflow SS MCH (RBC) [Entitic mass] 30.5 pg Invalid Interpretation Code 27.0 - 31.2 pg AO Workflow SS MCHC 33.8 G/dL Invalid Interpretation Code 31.8 - 35.4 G/dL AO Workflow SS MCV (RBC) [Entitic vol] 90.3 fL Invalid Interpretation Code 80.0 - 94.0 fL AO Workflow SS Monocyte, Absolute 0.9 103/mcL Invalid Interpretation Code 0.2 - 1.0 10^3/mcL AO Workflow SS Monocytes/100 WBC (Bld) 12.5 % Invalid Interpretation Code 1.7 - 13.0 % AO Workflow SS Neutrophil, Absolute 4.3 103/mcL Invalid Interpretation Code 2.9 - 6.2 10^3/mcL AO Workflow SS Neutrophils/100 WBC (Bld) 63.6 % Invalid Interpretation Code 37.0 - 80.0 % AO Workflow SS Platelet mean volume (Bld) [Entitic vol] 8.6 fL Invalid Interpretation Code 7.4 - 10.4 fL AO Workflow SS Platelets (Bld) [#/Vol] 193 103/mcL Invalid Interpretation Code 130 - 400 10^3/mcL AO Workflow SS RBC (Bld) [#/Vol] 4.92 106/mcL Invalid Interpretation Code 4.04 - 6.13 10^6/mcL AO Workflow SS WBC (Bld) [#/Vol] 6.8 103/mcL Invalid Interpretation Code 4.6 - 10.8 10^3/mcL AO Workflow SS URICon 11-06-2022 Uric Acid Lvl 5.2 mg/dL Normal 3.5-7.2 [facility] ([place]) Comment on above: Performed By: #### U BEBE, ADIFF, MISC, GFR, ANEU, CBC, CMP #### [id number] [place], [place] [address] Basophil percentageon 2021 Bilirubin [Mass/Vol] 1.00 mg/dL 0.20-1.00 [facility] Work Phone: Comment on above: For patients on eltr ombopag therapy, use of Dimension [place] TBIL is not recommended. Chloride [Moles/Vol] 103 mmol/L 98-107 [facility] Work Phone: Glucose [Mass/Vol] 78 mg/dL 74-106 [facility] Work Phone: Potassium [Moles/Vol] 4.8 mmol/L 3.5-5.1 [facility] Work Phone: Protein [Mass/Vol] 7.7 g/dL 6.4-8.2 [facility] Work Phone: Sodium [Moles/Vol] 138 mmol/L 136-145 [facility] Work Phone: Laboratory - Chemistry and C hemistry - challengeon 08-20-2022 ALP [Catalytic activity/Vol] 119 U/L 45-117 [facility] Work Phone: ALT [Catalytic activity/Vol] 27 U/L 16-61 [facility] Work Phone: CO2 [Moles/Vol] 29.0 mmol/L 21.0-32.0 [facility] Work Phone: Globulin (S) [Mass/Vol] 3.7 g/dL 2.2-4.2 [facility] Work Phone: Urea nitrogen/Creatinine [Mass ratio] 18.8 mg/mg 10-20 [facility] Work Phone: No Panel Informationon 08-20 Estimated GFR (MDRD) Amer 100 mL/min >60 [facility] Work Phone: Comment on above: GFR Calc Estimated GFR (MDRD) Non-Af Amer 83 mL/min >60 [facility] Work Phone: Comment on above: Non- GFR Calc Miscellaneous Test See comment [facility] Work [facility]: Comment on above: TEST RESULT LIMITSCa ndida Antibodies IgG,IgA,IgMCandida Antibodies IgG A, Positive Abnormal NegativeCandida Antibodies IgM A, Negative Negative Please note reference interval changeUmu Antibodies IgA A, Negative Negative Please note reference interval changeA: Results of this test are labeled for research purposes only by the assay's integrated circuit fabricator. The performance characteristics of this assay have not beenestablished by the integrated circuit fabricator. The result should not be used for treatment or for diagnostic purposes without confirmation of the diagnosis by anothermedically established diagnostic product or procedure. The performance characteristics were determined by [employer]. __ TESTING PERFORMED AT [facility]. ORIGINAL REPORT ON FILE IN LAB CONTAINS ADDITIONAL TEST SITE INFORMATION. Serum or plasma albumin merrill urement (mass/volume)on 08-20-2022 Albumin [Mass/Vol] 4.0 g/dL 3.2-5.0 [facility] Work Phone: Serum or plasma albumin/glob ulin mass ratioon 08-20-2022 Albumin/Globulin [Mass ratio] 1.1 {ratio} 0.9-2.4 [facility] Work Phone: Serum or plasma calcium merrill urement (mass/volume)on 08-20-2022 Calcium [Mass/Vol] 9.6 mg/dL 8.5-10.1 [facility] Work Phone: Serum or plasma creatinine m easurement (mass/volume)on 08-20-2022 Creatinine [Mass/Vol] 0.96 mg/dL 0.70-1.30 [facility] Work Phone: Comment on above: The validity of the calculated GFR & GFRAA in patients over 70 years has not been determined. Clinical correlation is essential. Serum or plasma urea nitroge n measurement (mass/volume)on 08-20-2022 Urea nitrogen [Mass/Vol] 18 mg/dL - [facility] Work Phone: Thin prep Papanicolaou smear with manual screeningon 08-20-2022 Thin prep Papanicolaou smear with manual screening 21 U/L - [facility] Work Phone: Thin prep Papanicolaou smear with manual screening 6 5-15 [facility] Work Phone: CNOVon 05-15-2021 CNOV Office Visit (GSTNOR ) DANIEL CHAND ([id number]) 1955 M EXC Date Time Provider Department 05/15/21 10:00 AM KEILA SCHULTE During your visit today, we recorded the following information about you: Pulse Blood pressure Weight Height 53/minute 112/61 77.1 kg 1.803 m Keila Schulte PA-C 05/15/2021 12:37 PM Signed CHIEF COMPLAINT: Patient presents with: Lymohocytic Colitis HPI: Daniel Chand is a 66 year old male who presents for Lymohocytic Colitis. Seen by Gen Surg Ruth MARTIN for chronic diarrhea, abdominal cramping for the past year. Had stool studies previously through PCP that were unremarkable. Colonoscopy 03/30/2021 w/ Dr. Mott showed evidence of lymphocytic colitis. BMs are currently 3-4 per day, loose to watery, no blood. Having some intermittent abdominal cramping. Taking probiotic daily. Denies NSAID use, GERD sx. Family hx of colon CA maternal grandfather, uncles (unknown age of dx) Record Review: [facility] / Outside records reviewed. PAST MEDICAL HISTORY Diagnosis Date - Atrial fibrillation (HCC) - Benign neoplasm of colon - Family history of malignant neoplasm of gastrointestinal tract - Hyperlipidemia - Lymphocytic colitis PAST SURGICAL HISTORY Procedure Laterality Date - ARTHROTOMY,OPEN REPAIR MENISCUS 08/28/2008 Open knee reconstruction, right - COLONOS W/REM POLYP SNARE 09/08/2009 - COLONOSCOPY GEN ANES 07/2014 - COLONOSCOPY GEN ANES 03/30/2021 - FRACTURE SURGERY - PAST SURGICAL HISTORY OF 08/28/1993 right arm with hardware, trauma - PAST SURGICAL HISTORY OF 10/28/2009 right rotator cuff repair - PAST SURGICAL HISTORY OF 10/28/2011 repair left distal bicep tendon Allergies: ALLERGIES Allergen Reactions - Seasonal Allergies Other: See Comments Upper Respiratory Symptoms, congestion and headaches; weekly allergy shots - Shrimp [Other] Vomiting Medications: COLLAGEN MISC Cod Liver Oil oil Take by mouth once daily. BEE POLLEN ORAL Take by mouth. CALCIUM CITRATE/VITAMIN D3 (CITRACAL + D ORAL) Take by mouth. Marine Calcium FAMILY HISTORY Problem Relation Age of Onset - Colon Cancer Maternal Grandfather - Stroke Mother - Colon Cancer Maternal Uncle Employer And Job Title: None on file Years Of Education Completed: Not specified Marital Status: Social History Tobacco Use - Smoking status: Never Smoker - Smokeless tobacco: Never Used Vaping Use - Vaping Use: Never used Substance Use Topics - Alcohol use: Yes Comment: a beer or shot daily - Drug use: No Review of Systems: Review of Systems Gastrointestinal: Positive for abdominal pain and diarrhea. Rectal rash Are you taking any blood thinners? No Physical Examination: BP 112/61 Pulse 53 Ht 5' 11 (1.80m) Wt 170 lb (77.1kg) BMI 23.72 kg/(m2). Physical Exam Constitutional: General: He is not in acute distress. Appearance: Normal appearance. He is normal weight. He is not ill-appearing, toxic-appearing or diaphoretic. HENT: Head: Normocephalic and atraumatic. Nose: Nose normal. Eyes: General: No scleral icterus. Right eye: No discharge. Left eye: No discharge. Extraocular Movements: Extraocular movements intact. Conjunctiva/sclera: Conjunctivae normal. Pupils: Pupils are equal, round, and reactive to light. Cardiovascular: Rate and Rhythm: Normal rate and regular rhythm. Pulses: Normal pulses. Heart sounds: Normal heart sounds. No murmur heard. No friction rub. No gallop. Pulmonary: Effort: No respiratory distress. Breath sounds: Normal breath sounds. No stridor. No wheezing, rhonchi or rales. Chest: Chest wall: No tenderness. Abdominal: General: Abdomen is flat. Bowel sounds are normal. There is no distension. Palpations: Abdomen is soft. There is no mass. Tenderness: There is no abdominal tenderness. There is no right CVA tenderness, left CVA tenderness, guarding or rebound. Hernia: No hernia is present. Genitourinary: Comments: Rectal examination: Perianal erythematous, chaffing epidermal layer. No evidence of active drainage, anal fissures, external hemorrhoids. Tester Operator: Smiley Rincon MA Musculoskeletal: General: Normal range of motion. Cervical back: Normal range of motion and neck supple. Skin: General: Skin is warm and dry. Neurological: General: No focal deficit present. Mental Status: He is alert and oriented to person, place, and time. Psychiatric: Mood and Affect: Mood normal. Behavior: Behavior normal. Assessment/Plan (K52.832) Lymphocytic colitis (primary encounter diagnosis) (L30.9) Perianal dermatitis 1. Lymphocytic colitis - budesonide, enteric coated (ENTOCORT EC) 3 mg 24 hr capsule; Take 3 capsules by mouth once daily for 8 weeks. Then 2 capsules by mouth once daily for 2 weeks. Then 1 capsule by mouth daily for 2 weeks. Then discontinue. Dispense: 210 capsule; R (more content not included)... Normal [facility] [place] 04-12-2021 [facility] Telephone (FERMIN) DANIEL CHAND ([id number]) 1955 M EXC Date Time Provider Department 04/12/21 GAEL MOTT During your visit today, we recorded the following information about you: Jena Radha [facility] [place] 04/12/2021 10:04 AM Signed Patient is being referred to Gastroenterology for diarrhea and lymphocytic colitits found on recent colonsocopy. Appointment was made for May 15 at 10:00 with the PA, Keila Schulte. Patient has been notified and appointment reminder mailed as patient does not have mychart. Thank you Jena Evans Allergies As of Date: 04/12/2021 Noted Allergy Reaction SEASONAL ALLERGIES 06/02/2012 14 - Other: See Comments Comments: Upper Respiratory Symptoms, congestion and headaches; weekly allergy shots shrimp [Other] 08/28/2010 11 - Vomiting Date Reviewed: 04/11/2021 Reviewed by: Ruth Linder PA-C - Fully Assessed Reason for Visit: Other [facility] Referral [[id number]] Cmt: to Gastroeneterology Prescriptions as of 04/12/2021 Sig: COLLAGEN MISC MUPIROCIN 2 % TOPICAL OINTMENT Apply 1 application to affect* COD LIVER OIL ORAL Take by mouth once daily. * BEE POLLEN ORAL Take by mouth. * CITRACAL + D ORAL Take by mouth. Problem List As Of Date 04/12/2021 Noted Resolved Special Screening for Malignant Neoplasms, [place]*09/08/2009 Family history of colon cancer [Z80.0] 09/08/2009 03/30/2021 Benign Neoplasm of Colon [D12.6] 09/08/2009 Rotator cuff (capsule) sprain and strain [S43.4*09/20/2010 Biceps tendon rupture [S46.219A] 06/02/2012 Diarrhea [R19.7] 03/30/2021 03/30/2021 Change in bowel habit [R19.4] 03/30/2021 03/30/2021 Personal history of colonic polyps [Z86.010] 03/30/2021 Encounter Status:Closed by JENA SYED on 04/12/21 [facility] CNOVon 04-11-2021 CNOV Office Visit (GENSWS ) DANIEL [id number]) 1955 M [facility] Date Time Provider Department 04/11/21 10:00 AM RUTH LINDER During your visit today, we recorded the following information about you: Temperature Pulse Weight Height 97.4 degrees 59/minute 75.8 kg 1.803 m Ruth Linder PA-C 04/11/2021 10:49 AM Signed Based on findings of lymphocytic colitis, granuloma in Terminal ileum, and abnormal calprotectin and pancreatic elastase noted on outside studies, we would recommend evaluation by Gastroenterology Please notify our office if you have not received a call regarding an appointment after 1 week Recommend a bland diet until diarrhea resolving. Avoid artificial sweeteners, anti-inflammatory medications, alcohol, caffeine and spicy foods Ruth Linder PA-C 04/16/2021 9:48 PM Signed FOLLOW UP VISIT - ENDOSCOPY NAME: Daniel Chand CLINIC NO.: [id number] DATE OF SERVICE: 04/11/2021 : 1955 REFERRING PHYSICIAN: Mare Castellano MD Daniel is a patient I am following with Dr. oMtt for diarrhea, abdominal cramping, history of colon polyps and family history of colon cancer. Dr. Mott performed lower endoscopy on 03/30/21. The patient was found to have normal appearing colon and terminal ileum. Non-bleeding internal hemorrhoids were noted. Random biopsies were taken for evaluation of microscopic colitis. Pathology demonstrated: FINAL DIAGNOSIS 1. Colon, random, biopsy (A) - Lymphocytic colitis-pattern of mucosal injury, see comment. 2. Terminal ileum, biopsy (B) - Small intestinal mucosa with a rare small non-necrotizing granuloma, see comment. COMMENT Sections of the colon (part A) demonstrate expansion of the lamina propria by a chronic inflammatory infiltrate with marked intraepithelial lymphocytosis and associated epithelial injury. No thickening of the collagen table or architectural distortion are identified. Histologically, these findings are consistent with a lymphocytic colitis-pattern of mucosal injury which may be seen in idiopathic lymphocytic colitis as well as with infections and certain medications, among others. The terminal ileum (part B) demonstrates a rare small non-necrotizing granuloma within the lamina propria. No acute inflammation or features of chronicity (i.e. pyloric gland metaplasia or architectural distortion) are seen. The clinical significance of these findings is uncertain and diagnostic considerations include idiopathic inflammatory bowel disease (i.e. Crohn's disease), which can either precede or follow a diagnosis of microscopic colitis (i.e. lymphocytic or collagenous colitis), infection, sarcoidosis, or certain medications, among others. Clinical and endoscopic correlation are recommended. The patient notes no new complaints since the procedure. He states he is still having some loose stools, but overall much less frequently. Has been taking probiotics. Patient also brings a report from functional medicine provider that he is following with outside [facility]. This mentions abnormal pancreatic elastase and calprotectin, with a recommendation to follow up with GI. Patient provided our office with a copy of report, which was sent for scanning by medical records. VITALS: Pulse (!) 59, temperature 36.3 ?C (97.4 ?F), height 180.3 cm (5' 11), weight 75.8 kg (167 lb), SpO2 96 %. General: patient is alert, cooperative, pleasant and in no acute distress On examination, the abdomen is benign. Assessment IMPRESSION: lymphocytic colitis. 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 Abnormal lab studies per-pancreatic elastase and calprotectin-per functional medicine PLAN: The operative findings and pathology report were reviewed with the patient, and the patient has had the opportunity to ask questions and have questions answered. If the patient notes any problems or changes in bowel function, the patient should contact me immediately. Based on findings of lymphocytic colitis, granuloma in Terminal ileum, and abnormal calprotectin and pancreatic elastase noted on outside studies, we would recommend evaluation by Gastroenterology Recommend a bland diet until diarrhea resolving. Avoid artificial sweeteners, anti-inflammatory medications, alcohol, caffeine and spicy foods Patient verbalized understanding of all above and agreed with the plan Diagnoses: (K52.832) Lymphocytic colitis (primary encounter diagnosis) I spent 31 minutes in the visit, with more than 50% of the total lifs-ar-mxdu time of the visit in counseling / coordination of care. Ruth Linder PA-C Referring Provider: SELF [[id number]] Allergies As of Date: 04/11/2021 Noted Allergy Reaction SEASONAL ALLERGIES 06/02/2012 14 - Other: See Comments Comments: Upper Respiratory Symptoms, congestion and headaches; weekly allergy shots shrimp [Other] 08/28/2010 11 - Vomiting Date Revi (more content not included)... Normal [facility] HISTORY PHYSICALon HISTORY PHYSICAL HNO ID: [id number] Author: Gael Mott MD Service: General Surgery Author Type: Physician Type: HANDP Filed: 03/30/2021 9:30 AM Note Text: UPDATED HISTORY AND PHYSICAL EXAMINATION SERVICE DATE: 03/30/2021 SERVICE TIME: 9:30 AM PHYSICAL EXAM MUST BE COMPLETED ON ADMISSION The History and Physical (completed in the past 30 days) has been reviewed and the patient has been examined. The contents accurately reflect the patient's condition with the following additions or revisions since the HANDP was completed. Examination indicates no changes. This HANDP can be found in the Electronic Medical Record dated 03/15/21. SIGNATURE: Gael Mott III, MD PATIENT NAME: Daniel Chand DATE: March 30, 2021 TIME: 9:30 AM Normal [facility] NURSING PROGon 03-30-2021 NURSING PROG HNO ID: [id number] Author: Lauren Caruso RN Service: Nursing Author Type: Registered Nurse Type: Nursing Progress Note Filed: 03/30/2021 10:49 AM Note Text: Pt into Endo recovery room in satisfactory condition. Resting on left side. Pt. sleepy but arousable. Abdomen soft, no complaints. Will continue to monitor. Normal [facility] NURSING PROG HNO ID: [id number] Author: Cindy Lawrence RN Service: ? Author Type: Registered Nurse Type: Nursing Progress Note Filed: 03/30/2021 10:16 AM Note Text: [facility] PRE-OP NURSING HAND OFF NOTE SBAR Hand off given to Emily Houston RN. Hand off was communicated verbally and at the patient's bedside and all questions were answered. Cindy Lawrence RN Normal [facility] SURGICAL PATHOLOGYon 021 SURGICAL PATHOLOGY Specimen originated from [facility] Specimen #: [id number] Submitting Physician: GAEL MOTT ([id number]) FINAL DIAGNOSIS 1. Colon, random, biopsy (A) - Lymphocytic colitis-pattern of mucosal injury, see comment. 2. Terminal ileum, biopsy (B) - Small intestinal mucosa with a rare small non-necrotizing granuloma, see comment. COMMENT Sections of the colon (part A) demonstrate expansion of the lamina propria by a chronic inflammatory infiltrate with marked intraepithelial lymphocytosis and associated epithelial injury. No thickening of the collagen table or architectural distortion are identified. Histologically, these findings are consistent with a lymphocytic colitis-pattern of mucosal injury which may be seen in idiopathic lymphocytic colitis as well as with infections and certain medications, among others. The terminal ileum (part B) demonstrates a rare small non-necrotizing granuloma within the lamina propria. No acute inflammation or features of chronicity (i.e. pyloric gland metaplasia or architectural distortion) are seen. The clinical significance of these findings is uncertain and diagnostic considerations include idiopathic inflammatory bowel disease (i.e. Crohn's disease), which can either precede or follow a diagnosis of microscopic colitis (i.e. lymphocytic or collagenous colitis), infection, sarcoidosis, or certain medications, among others. Clinical and endoscopic correlation are recommended. Susie Walls M.D. (Electronic Signature) ____ SPECIMEN SUBMITTED A: RANDOM COLON, BIOPSIES B: TERMINAL ILEUM, BIOPSIES CLINICAL DATA DIARRHEA GROSS DESCRIPTION A. Received in formalin are multiple pieces of jack, soft tissue aggregating to 4.0 x 0.3 x 0.1 cm. Totally submitted in two cassettes. B. Received in formalin are two pieces of jack, soft tissue aggregating to 1.4 x 0.3 x 0.2 cm. Totally submitted in one cassette. Gross examination performed at [facility], [address] [place] [address] J 03/30/2021 8:59:46 PM Date of Report: 04/01/2021 Date of Procedure: 03/30/2021 Date of Receipt: 03/30/2021 Submitted by: GAEL MOTT ([id number]) Location: W010 Diagnostic interpretation performed at [facility], [address] [place], [place] [address] [address]. [place] Number: [id number] Normal [facility] CNOVon 03-15-2021 CNOV Office Visit (GENSWS ) DANIEL CHAND ([id number]) 1955 M [facility] Date Time Provider Department 03/15/21 8:00 AM RUTH LINDERS During your visit today, we recorded the following information about you: Temperature Pulse Blood pressure Weight 97.4 degrees 67/minute 104/62 77.6 kg Height 1.803 m Stefany Benavidez [facility] 03/15/2021 8:12 AM Signed REVIEW OF SYSTEMS: General: The patient denies fatigue, NOTES weight loss, denies weight gain, denies feeling hot, and denies feelings of cold. Eyes: The patient denies glaucoma, denies eye injury/surgery, wears glasses or contacts. Ear/Nose/Throat: The patient NOTES allergies, denies hayfever, denies ear infections, and denies bloody noses. Cardiovascular: The patient denies chest pain, denies heart disease, denies high blood pressure,denies cardiac stent, denies prior heart attack, NOTES irregular heart beat, denies high cholesterol, denies poor circulation, denies heart failure, other cardiac issues, denies claudication, denies cold feet, denies peripheral arterial stent. Respiratory: The patient denies tuberculosis, denies pneumonia, denies frequent cough, denies pulmonary embolism, denies shortness of breath, and denies coughing up blood. Gastrointestinal: The patient denies difficulty swallowing, NOTES acid reflux, denies ulcers, denies vomiting, denies jaundice/hepatitis, denies gallbladder problems, denies black or tarry stools, denies hemorrhoids, denies bleeding from rectum, denies diverticulitis, denies constipation, NOTES diarrhea, denies loss of stool control, and denies hernias. Kidney/Bladder: The patient denies kidney stones, denies urine infections, and denies bloody urine. Skin: The patient denies a history of skin cancer, denies bleeding/changing moles, and denies a history of skin rash. Neurologic: The patient denies a history of epilepsy/convulsions, denies headaches, denies head/spinal injuries, and denies stroke/TIA. Psychiatric: The patient denies psychiatric medications, denies depression, and denies voices, denies substance abuse. Endocrine: The patient denies thyroid disorders, denies diabetes, and denies hormonal problems. Hematologic: The patient denies a history of bruising, NOTES bleeding, and denies anemia, denies blood clots. Infections: The patient denies a history of measles and mumps, denies rheumatic fever, and denies sexually transmitted diseases. Musculoskeletal: The patient denies back pain/injury, denies back problems, denies sciatica, denies knee/foot trouble, denies arthritis, or denies gout. When was patient's last Mammogram screening? N/A Last Colonoscopy: 07/2014 Stefany Linder PA-C 03/15/2021 8:44 AM Signed HISTORY AND PHYSICAL Daniel Chand 1955 REFERRING PHYSICIAN: Daniel Ledezma MD CHIEF COMPLAINT: Consult (Colonoscopy) HPI: The patient is a 65 year old male referred for endoscopy. Daniel notes new complaint of diarrhea and fecal urgency x 2 months. He denies any changes in travel, sick contacts, changes in diet or new medications prior to onset. States will have loose stools with associated cramping and urgency upwards of 6 x/day. Patient reports he had stool studies completed through his PCP outside [facility], and was told those showed signs of inflammation and he was told he should have a colonoscopy. Records are not currently available for review. Patient denies any weight changes, blood in stools, black tarry stools or abdominal pain. Notes family history of colon cancer on his maternal side. The patient notes no upper GI complaints. Daniel has undergone prior endoscopy. Most recent colonoscopy 08/03/[address] Mott with no concerning findings. 5 year repeat colonoscopy was recommended due to patient's prior history of polyps. Patient's past medical history is significant for hyperlipidemia and atrial fibrillation. He follows with Dr. Art in primary care and Dr. Rankin in cardiology. Patient notes he is not maintained on any prescription medications. He does take cod liver oil, oral bee pollen and calcium/vitamin D3. Patient denies chest pain, shortness of breath or recent hospitalizations. Denies problems with sedation in the past. PAST MEDICAL HISTORY Diagnosis Date - Atrial fibrillation (HCC) - Benign neoplasm of colon - Family history of malignant neoplasm of gastrointestinal tract - Hyperlipidemia PAST SURGICAL HISTORY Procedure Laterality Date - ARTHROTOMY,OPEN REPAIR MENISCUS 09-04 Open knee reconstruction, right - COLONOS W/REM POLYP SNARE 09/08/09 - PAST SURGICAL HISTORY OF right arm with hardware, trauma - PAST SURGICAL HISTORY OF 2009 right rotator cuff repair - PAST SURGICAL HISTORY OF 2011 repair left distal bicep tendon Current Outpatient Medications Medication Sig - COLLAGEN MISC - mupirocin (BACTROBAN) 2 % ointment Apply (more content not included)... Normal [facility] [place] 03-15-2021 [facility] Telephone ([employer]) DANIEL CHAND ([id number]) 1955 M EXC Date Time Provider Department 03/15/21 GAEL MOTT During your visit today, we recorded the following information about you: Carmen Randolph 03/15/2021 10:22 AM Signed [facility] SURGICAL PHONE NOTE Date of Procedure/Surgery: 03-30-2021 Procedure/Surgery Type: COLONOSCOPY ? SEDATION:Conscious Sedation Location of Planned Procedure/Surgery: ? [facility] Surgery/Procedure Ordered: Yes COVID Testing Required: (FOR MAC CASES AND ASC PROCEDURES OTHER THAN COLON AND EGD): No Pre-Op Clearance Needed: No Prep Ordered:Yes: MIRALAX/DULCOLAX Prep Instructions given:Yes: Given in the office. Referral Completed:GERMANE to complete. Patient Diabetic:No. Medication Considerations: Patient on blood Thinners: No Any other meds that need to be held: No Pacemaker or Defibrillator:No Patient/Family Informed of above information and given directions regarding location/arrival: Yes: Patient Transportation Considerations: No Other Important Information: No Any physical limitations: No Any cognitive limitations: No Credit Compliance Officer/Translato r required: No Communication Limitations: No Allergies As of Date: 03/15/2021 Noted Allergy Reaction SEASONAL ALLERGIES 06/02/2012 14 - Other: See Comments Comments: Upper Respiratory Symptoms, congestion and headaches; weekly allergy shots shrimp [Other] 08/28/2010 11 - Vomiting Date Reviewed: 03/15/2021 Reviewed by: Stefany Benavidez LPN - Fully Assessed Reason for Visit: 03-30-2021 [Other] Prescriptions as of 03/15/2021 Sig: COLLAGEN MISC PEG 3350-ELECTROLYTES 236 GRA* Take 4,000 mL by mouth one ti* MUPIROCIN 2 % TOPICAL OINTMENT Apply 1 application to affect* COD LIVER OIL ORAL Take by mouth once daily. * BEE POLLEN ORAL Take by mouth. * CITRACAL + D ORAL Take by mouth. Problem List As Of Date 03/15/2021 Noted Resolved Special Screening for Malignant Neoplasms, [place]*09/08/2009 Family History of Malignant Neoplasm of Gastroi*09/08/2009 Benign Neoplasm of Colon [D12.6] 09/08/2009 Rotator cuff (capsule) sprain and strain [S43.4*09/20/2010 Biceps tendon rupture [S46.219A] 06/02/2012 Encounter Status:Closed by CARMEN RANDOLPH on 04/12/21 [facility] HOSPon 03-15-2021 HOSP Patient:Daniel Chand MRN: Height:5' 11(1.803 m) Weight:171 lb (77.565 kg) Outpatient Medications as of 03/30/21: COLLAGEN MISC mupirocin (BACTROBAN) 2 % ointment Cod Liver Oil oil BEE POLLEN ORAL CALCIUM CITRATE/VITAMIN D3 (CITRACAL + D ORAL) Admission/Clinic Administered Medications as of 03/30/21: lactated ringers iv infusion fentaNYL 50 mcg/mL 25-100 mcg injection (SUBLIMAZE) midazolam 1-5 mg injection (VERSED) diphenhydrAMINE 12.5-50 mg injection (BENADRYL) Problem List: Special screening for malignant neoplasms, colon [Z12.11] Family history of colon cancer [Z80.0] Benign neoplasm of colon [D12.6] Rotator cuff (capsule) sprain [S43.429A] Biceps tendon rupture [S46.219A] Diarrhea [R19.7] Change in bowel habit [R19.4] Personal history of colonic polyps [Z86.010] Allergies: Seasonal Allergies shrimp [Other] Date Verified: 03/30/21 Lab Values No results within the last 30 days for the following basenames: K,HCT Progress Notes ([facility]): Carmen Randolph 03/15/2021 10:22 AM Signed [facility] SURGICAL PHONE NOTE Date of Procedure/Surgery: 03-30-2021 Procedure/Surgery Type: COLONOSCOPY ? SEDATION:Conscious Sedation Location of Planned Procedure/Surgery: ? [facility] Surgery/Procedure Ordered: Yes COVID Testing Required: (FOR MAC CASES AND ASC PROCEDURES OTHER THAN COLON AND EGD): No Pre-Op Clearance Needed: No Prep Ordered:Yes: MIRALAX/DULCOLAX Prep Instructions given:Yes: Given in the office. Referral Completed:PAVE to complete. Patient Diabetic:No. Medication Considerations: Patient on blood Thinners: No Any other meds that need to be held: No Pacemaker or Defibrillator:No Patient/Family Informed of above information and given directions regarding location/arrival: Yes: Patient Transportation Considerations: No Other Important Information: No Any physical limitations: No Any cognitive limitations: No Credit Compliance Officer/Translato r required: No Communication Limitations: No Progress Notes ([facility]): Stefany Benavidez LPN 03/15/2021 8:12 AM Signed REVIEW OF SYSTEMS: General: The patient denies fatigue, NOTES weight loss, denies weight gain, denies feeling hot, and denies feelings of cold. Eyes: The patient denies glaucoma, denies eye injury/surgery, wears glasses or contacts. Ear/Nose/Throat: The patient NOTES allergies, denies hayfever, denies ear infections, and denies bloody noses. Cardiovascular: The patient denies chest pain, denies heart disease, denies high blood pressure,denies cardiac stent, denies prior heart attack, NOTES irregular heart beat, denies high cholesterol, denies poor circulation, denies heart failure, other cardiac issues, denies claudication, denies cold feet, denies peripheral arterial stent. Respiratory: The patient denies tuberculosis, denies pneumonia, denies frequent cough, denies pulmonary embolism, denies shortness of breath, and denies coughing up blood. Gastrointestinal: The patient denies difficulty swallowing, NOTES acid reflux, denies ulcers, denies vomiting, denies jaundice/hepatitis, denies gallbladder problems, denies black or tarry stools, denies hemorrhoids, denies bleeding from rectum, denies diverticulitis, denies constipation, NOTES diarrhea, denies loss of stool control, and denies hernias. Kidney/Bladder: The patient denies kidney stones, denies urine infections, and denies bloody urine. Skin: The patient denies a history of skin cancer, denies bleeding/changing moles, and denies a history of skin rash. Neurologic: The patient denies a history of epilepsy/convulsions, denies headaches, denies head/spinal injuries, and denies stroke/TIA. Psychiatric: The patient denies psychiatric medications, denies depression, and denies voices, denies substance abuse. Endocrine: The patient denies thyroid disorders, denies diabetes, and denies hormonal problems. Hematologic: The patient denies a history of bruising, NOTES bleeding, and denies anemia, denies blood clots. Infections: The patient denies a history of measles and mumps, denies rheumatic fever, and denies sexually transmitted diseases. Musculoskeletal: The patient denies back pain/injury, denies back problems, denies sciatica, denies knee/foot trouble, denies arthritis, or denies gout. When was patient's last Mammogram screening? N/A Last Colonoscopy: 07/2014 Stefany Linder PA-C 03/15/2021 8:44 AM Signed HISTORY AND PHYSICAL Daniel Chand 1955 REFERRING PHYSICIAN: Daniel Ledezma MD CHIEF COMPLAINT: Consult (Colonoscopy) HPI: The patient is a 65 year old male referred for endoscopy. Daniel notes new complaint of diarrhea and fecal urgency x 2 months. He denies any changes in travel, sick contacts, changes in diet or new medications prior to onset. States will have loose stools with associated cramping and urgency upwards of 6 x/day. Patient reports he had stool studies completed through his PCP outside (more content not included)... Normal [facility] Vital Signs Date Time Vital Sign Value Performing Clinician Isaiah mir 02-01-2025 08:59-0400 Body height 182.[address] Nicole Echeverria DO Work Phone: [facility] 02-01-2025 08:59-0400 Body mass index (BMI) [Ratio] 23.3 kg/m2 Dr. Nicole Echeverria DO Work Phone: [facility] 02-01-2025 08:59-0400 Body weight 78.[address] Nicole Echeverria DO Work Phone: [facility] 04-17-2023 09:59-0400 Body height 182.[address] Mare Castellano Work Phone: [facility] 04-17-2023 09:59-0400 Body mass index (BMI) [Ratio] 23.8 kg/m2 Dr. Mare Castellano Work Phone: [facility] 04-17-2023 09:59-0400 Body weight 79.[address] Mare Castellano Work Phone: [facility] 04-17-2023 09:59-0400 Diastolic blood pressure 54 mm[Hg] Dr. Mare Castellano Work Phone: [facility] 04-17-2023 09:59-0400 Heart rate 52 /min Dr. Mare Castellano Work Phone: [facility] 04-17-2023 09:59-0400 Respiratory rate 16 /min Dr. Mare Castellano Work Phone: [facility] 04-17-2023 09:59-0400 Systolic blood pressure 99 mm[Hg] Dr. Mare Castellano Work Phone: [facility] Encounters Encounter Date Encounter Type Care Provider Facility Start: 03-23-2025 End: 03-23-[address] Nicole Echeverria DO Work Phone: [facility] Work Phone: Start: 03-23-2025 End: 03-23-[address] Kumar Israel MD -[facility] [place] Work Phone: Start: 03-23-2025 End: 03-23-[address] Dru Wilson MD -[facility] Work Phone: Start: 03-23-2025 End: 03-23-[address] Nicole Echeverria DO Work Phone: [facility] Work Phone: Start: 03-23-2025 End: 03-23-2025 ambulatory Nicole Echeverria Facility:[facility] Start: 03-16-2025 End: 03-16-[address] Nicole Echeverria DO -Cat Scan [facility] Work Phone: Start: 03-16-2025 End: 03-16-2025 ambulatory Nicole Echeverria Facility:[facility] Start: 03-09-2025 End: 03-09-[address] Nicole Echeverria DO Work Phone: [facility] Work Phone: Start: 03-09-2025 End: 03-09-[address] Dru Wilson MD -[facility] Work Phone: Start: 03-09-2025 End: 03-09-2025 ambulatory Nicole Echeverria Facility:[facility] Start: 02-01-2025 End: 02-01-[address] Dru Wilson MD -[facility] Work Phone: Start: 02-01-2025 End: 02-01-2025 ambulatory Nicole Echeverria Facility:[facility] Start: 01-01-2025 End: 01-01-[address] Nicole Echeverria DO Work Phone: [facility] Work Phone: Start: 01-01-2025 End: 01-01-[address] Jerrod Swain MD -[facility] Work Phone: Start: 01-01-2025 End: 01-01-2025 ambulatory Jerrod Swain Facility:[facility] Start: 12-25-2024 End: 12-25-[address] Nicole Echeverria DO Work Phone: [facility] Work Phone: Start: 12-25-2024 End: 12-25-[address] Nicole Echeverria DO -Cat Scan, [facility] Work Phone: Start: 12-25-2024 End: 12-25-2024 ambulatory Nicole Echeverria Facility:[facility] Start: 04-16-2024 ambulatory Mare Castellano Facility: [facility] Start: 03-31-2024 End: 03-31-2024 ambulatory Mare Castellano Facility:[facility] Start: 02-11-2024 End: 02-11-2024 ambulatory [facility] Work Phone: Start: 02-11-2024 End: 02-11-2024 Patient encounter procedure [facility] Work Phone: Start: 05-10-2023 Non-patient / Non-visit Dr. Mare Castellano Work Phone: [facility] Start: 05-10-2023 End: 05-10-[address] Mare Castellano Work Phone: [facility] Work Phone: Start: 05-10-2023 End: 05-10-[address] Mare Castellano Work Phone: [facility] Work Phone: Start: 04-17-2023 End: 04-17-[address] Mare Castellano Work Phone: [facility] Work Phone: Start: 04-17-2023 End: 04-17-[address] Mare Castellano Work Phone: [facility]Laboratory Start: 04-17-2023 End: 04-17-[address] Mare Castellano Work Phone: [facility] Start: 2023 End: 03-20-[address] MIREILLE DONIS MD Facility:[facility] Start: 03-14-2023 End: 03-15-[address] MIREILLE DONIS MD Facility:[facility] Start: 01-07-2023 End: 01-07-[address] [facility] Start: 11-06-2022 End: 11-07-2022 ambulatory JULISA GARCIA CNP Facility:[facility] Start: 11-06-2022 End: 11-06-2022 Patient encounter procedure JULISA GARCIA THERMAL MOLDER [facility] Start: 08-20-2022 End: 08-20-2022 ambulatory [facility] Work Phone: Start: 08-20-2022 End: 08-20-2022 Patient encounter procedure [facility] Start: 08-07-2022 End: 08-07-2022 ambulatory [facility] Work Phone: Start: 08-07-2022 End: 08-07-2022 Discharged Recurring [facility]Physical Therapy Start: 08-07-2022 Registered Recurring [facility] Start: 12-19-2021 End: 12-19-2021 Discharged Recurring [facility] Procedures Date Procedure Procedure Detail Performing Clinician Start: 03-23-[address] Nicole Echeverria DO Work Phone: Start: 03-16-2025 CT of thorax with contrast Dr. Nicole Echeverria DO Work Phone: Start: 03-09-2025 MRI of joint of lowe r extremity Dr. Nicole Echeverria DO Work Phone: Start: 02-01-2025 Plain x-ray of pelvi s and lower extremity Dr. Nicole Echeverria DO Work Phone: Start: 02-01-2025 Plain X-ray of shoulder Dr. Nicole Echeverria DO Work Phone: Start: 01-01-2025 Gram stain microscopy D emelina Echeverria DO Work Phone: Start: 01-01-2025 End: 01-01-[address] Nicole Echeverria DO Work Phone: Start: 12-25-[address] Tita Echeverria DO Work Phone: Start: 02-11-2024 Investigation of transfusion reaction Start: 02-11-2024 Nasopharyngeal Culture Bacteria identificat ion test Dr. Mare Castellano Work Phone: Bacteria identificat ion test Dr. Mare Castellano Work Phone: History of repair of musculotendinous cuff of shoulder S/P right rotator cuff repair Dr. Nicole Echeverria DO Work Phone: Comment on above: 2004 History of repair of musculotendinous cuff of shoulder S/P right rotator cuff repair Dr. Dru Wilson MD Plan of Treatment Date Care Activity Detail Author Start: 02-01-2025 Patient referral [facility] Work Phone: Start: 08-20-2022 Procedure [facility] Work Phone: 24 Hour ECG [facility] Cardiovascular stress testing [facility] Patient referral [facility] Work Phone: Procedure [facility] Work Phone: US Heart [facility] Payers Date Payer Category Payer Self-pay [id number] 2022 Medicare [id number] 2022 Private Health Insurance [facility] [id number] 2014 Unknown [id number] 2012 Unknown ANTHEM [id number] 1955 Unknown [id number] 2.16.8 [id number] 1955 Unknown [id number] 2.16.8 [id number] 1955 Unknown [id number] 2.16.8 [id number] Unknown [id number] Unknown [id number] 2.16.8 [id number] Unknown [id number] 2.16.8 [id number] Unknown [id number] 2.16.8 [id number] Unknown [id number] 2.16.8 [id number] Unknown [id number] 2.16.8 [id number] Unknown [id number] 2.16.8 [id number] Unknown [id number] 2.16.8 [id number] Unknown [id number] 2.16.8 [id number] Unknown [id number] 2.16.8 [id number] Unknown [id number] 2.16.8 [id number] Social History Date Type Detail Facility Start: 11-25-2017 End: 04-17-2023 Tobacco smoking status NHIS Unknown if ever smoked [facility] Start: 1955 Sex Assigned At Male A [facility] Tobacco smoking status No Smokin g Status Entered [facility] Start: 04-17-2023 Tobacco smoking stat us NHIS Never smoked tobacco (finding) [facility] Start: 01-07-2025 End: 01-14-2025 Sex Male (finding) [facility] Clinical Notes 03-15-2021 to 02-01-2025 Note Date & Type Note Facility 02-01-2025 Evaluation note Diagnosis Onset Date Resolution Right hip pain acute February 01, 2025 8:59am Right shoulder pain acute February 01, 2025 8:59am S/P right rotator cuff repair acute February 01, 2025 8:59am [facility] Work Phone: 1(487) 155-974404-07-2025 Evaluation note* Diagnosis Onset Date Resolution Status Admit Date Right hip pain acute February 01, 2025 8:59am Right shoulder pain acute February 01, 2025 8:59am S/P right rotator cuff repair acute February 01, 2025 8:59am Right rotator cuff tear acute 2024 8:45am Right shoulder pain acute February 262024 8:45am [facility] Work Phone: 1(766) 300-111602-28-2025 Radiology Diagnostic study note [facility] Imaging Services [address] [place] [address] [id number] Sinus/Facial Bone MR#: [id number] Acct: [id number] Name: DANIEL CHAND Rep #: [id number] : 1955 M 69 From: Drew Herndon MD PCP: Dr. Nicole Echeverria DO Status: RE G CLI Study:Sinus/Facial Bone Date of Exam: Exam# [id number] Ordering Dr: Marilyn Echeverria DO PROCEDURE: SINUS/FACIAL BONE REASON FOR EXAM: Chronic history of sinus congestion. TECHNIQUE: CT of the paranasal sinuses with contrast. CONTRAST: COMPARISON: None. FINDINGS: Frontal: Frontal sinuses and frontoethmoidal recesses appear clear. Ethmoid: Mucosal thickening of the ethmoid sinuses. Sphenoid: Sphenoid sinuses and sphenoethmoidal recesses appear clear. Maxillary: Opacification of the maxillary sinus bilaterally more prominent on the right side. The right ostiomeatal complex is obliterated due to soft tissue prominence. Turbinates: Unremarkable. Nasal Septum: Midline. No large nasal septal spur. Mastoids/Middle Ears: Clear at visualized levels. Visualized intracranial structures are unremarkable. No suspicious contrast enhancement. CT/Sinus/Facial Bone IMPRESSION: Opacification of both maxillary sinuses worse on the right side. Mucosal thickening of the ethmoid sinuses. One or more dose reduction techniques were used (e.g., Automated exposure control, adjustment of the mA and/or kV according to patient size, use of iterative reconstruction technique). Reading Location: [facility] CC: Dr. Nicole Echeverria, DO ~ Peripheral Equipment Operator: Signed [facility]01-10-2023 Evaluation + Plan note Diagnostic Tests Pending * [facility] [place] [facility] Send out (Blood Specimens) 11/06/22 [facility] 07-19-2021 NoteHNO ID: [id number] Author: Keila Schulte PA-C Service: ? Author Type: Physician Assessment Analyst Type: Progress Notes Filed: 05/15/2021 12:37 PM Note Text: CHIEF COMPLAINT: Patient presents with: Lymohocytic Colitis HPI: Daniel Chand is a 66 year old male who presents for Lymohocytic Colitis. Seen by Gen Surg Ruth MARTIN for chronic diarrhea, abdominal cramping for the past year. Had stool studies previously through PCP that were unremarkable. Colonoscopy 03/30/2021 w/ Dr. Mott showed evidence of lymphocytic colitis. BMs are currently 3-4 per day, loose to watery, no blood. Having some intermittent abdominal cramping. Taking probiotic daily. Denies NSAID use, GERD sx. Family hx of colon CA maternal grandfather, uncles (unknown age of dx) Record Review: [facility] / Outside records reviewed. PAST MEDICAL HISTORY Diagnosis Date - Atrial fibrillation (HCC) - Benign neoplasm of colon - Family history of malignant neoplasm of gastrointestinal tract - Hyperlipidemia - Lymphocytic colitis PAST SURGICAL HISTORY Procedure Laterality Date - ARTHROTOMY,OPEN REPAIR MENISCUS 08/28/2008 Open knee reconstruction, right - COLONOS W/REM POLYP SNARE 09/08/2009 - COLONOSCOPY GEN ANES 07/2014 - COLONOSCOPY GEN ANES 03/30/2021 - FRACTURE SURGERY - PAST SURGICAL HISTORY OF 08/28/1993 right arm with hardware, trauma - PAST SURGICAL HISTORY OF 10/28/2009 right rotator cuff repair - PAST SURGICAL HISTORY OF 10/28/2011 repair left distal bicep tendon Allergies: ALLERGIES Allergen Reactions - Seasonal Allergies Other: See Comments Upper Respiratory Symptoms, congestion and headaches; weekly allergy shots - Shrimp [Other] Vomiting Medications: COLLAGEN MISC Cod Liver Oil oil Take by mouth once daily. BEE POLLEN ORAL Take by mouth. CALCIUM CITRATE/VITAMIN D3 (CITRACAL + D ORAL) Take by mouth. Marine Calcium FAMILY HISTORY Problem Relation Age of Onset - Colon Cancer Maternal Grandfather - Stroke Mother - Colon Cancer Maternal Uncle Employer And Job Title: None on file Years Of Education Completed: Not specified Marital Status: Social History Tobacco Use - Smoking status: Never Smoker - Smokeless tobacco: Never Used Vaping Use - Vaping Use: Never used Substance Use Topics - Alcohol use: Yes Comment: a beer or shot daily - Drug use: No Review of Systems: Review of Systems Gastrointestinal: Positive for abdominal pain and diarrhea. Rectal rash Are you taking any blood thinners? No Physical Examination: BP 112/61 Pulse 53 Ht 5' 11 (1.80m) Wt 170 lb (77.1kg) BMI 23.72 kg/(m2). Physical Exam Constitutional: General: He is not in acute distress. Appearance: Normal appearance. He is normal weight. He is not ill-appearing, toxic-appearing or diaphoretic. HENT: Head: Normocephalic and atraumatic. Nose: Nose normal. Eyes: General: No scleral icterus. Right eye: No discharge. Left eye: No discharge. Extraocular Movements: Extraocular movements intact. Conjunctiva/sclera: Conjunctivae normal. Pupils: Pupils are equal, round, and reactive to light. Cardiovascular: Rate and Rhythm: Normal rate and regular rhythm. Pulses: Normal pulses. Heart sounds: Normal heart sounds. No murmur heard. No friction rub. No gallop. Pulmonary: Effort: No respiratory distress. Breath sounds: Normal breath sounds. No stridor. No wheezing, rhonchi or rales. Chest: Chest wall: No tenderness. Abdominal: General: Abdomen is flat. Bowel sounds are normal. There is no distension. Palpations: Abdomen is soft. There is no mass. Tenderness: There is no abdominal tenderness. There is no right CVA tenderness, left CVA tenderness, guarding or rebound. Hernia: No hernia is present. Genitourinary: Comments: Rectal examination: Perianal erythematous, chaffing epidermal layer. No evidence of active drainage, anal fissures, external hemorrhoids. Tester Operator: Smiley Rincon MA Musculoskeletal: General: Normal range of motion. Cervical back: Normal range of motion and neck supple. Skin: General: Skin is warm and dry. Neurological: General: No focal deficit present. Mental Status: He is alert and oriented to person, place, and time. Psychiatric: Mood and Affect: Mood normal. Behavior: Behavior normal. Assessment/Plan (K52.832) Lymphocytic colitis (primary encounter diagnosis) (L30.9) Perianal dermatitis 1. Lymphocytic colitis - budesonide, enteric coated (ENTOCORT EC) 3 mg 24 hr capsule; Take 3 capsules by mouth once daily for 8 weeks. Then 2 capsules by mouth once daily for 2 weeks. Then 1 capsule by mouth daily for 2 weeks. Then discontinue. Dispense: 210 capsule; Refill: 0 - hyoscyamine sublingual (LEVSIN/SL) 0.125 mg; Dissolve 1 tablet under the tongue every 4 hours as needed (abdominal cramping). Dispense: 30 tablet; Refill: 2 - Discussed diagnosis of lymphocytic colitis - Start Entocort with tap (more content not included)...[facility]06-15-2021 NoteHNO ID: [id number] Author: Ruth Linder PA-C Service: ? Author Type: Physician Assessment Analyst Type: Progress Notes Filed: 04/16/2021 9:48 PM Note Text: FOLLOW UP VISIT - ENDOSCOPY NAME: Daniel Hinojosa [facility] NO.: [id number] DATE OF SERVICE: 04/11/2021 : 1955 REFERRING PHYSICIAN: Mare Castellano MD Daniel is a patient I am following with Dr. Mott for diarrhea, abdominal cramping, history of colon polyps and family history of colon cancer. Dr. Mott performed lower endoscopy on 03/30/21. The patient was found to have normal appearing colon and terminal ileum. Non-bleeding internal hemorrhoids were noted. Random biopsies were taken for evaluation of microscopic colitis. Pathology demonstrated: FINAL DIAGNOSIS 1. Colon, random, biopsy (A) - Lymphocytic colitis-pattern of mucosal injury, see comment. 2. Terminal ileum, biopsy (B) - Small intestinal mucosa with a rare small non-necrotizing granuloma, see comment. COMMENT Sections of the colon (part A) demonstrate expansion of the lamina propria by a chronic inflammatory infiltrate with marked intraepithelial lymphocytosis and associated epithelial injury. No thickening of the collagen table or architectural distortion are identified. Histologically, these findings are consistent with a lymphocytic colitis-pattern of mucosal injury which may be seen in idiopathic lymphocytic colitis as well as with infections and certain medications, among others. The terminal ileum (part B) demonstrates a rare small non-necrotizing granuloma within the lamina propria. No acute inflammation or features of chronicity (i.e. pyloric gland metaplasia or architectural distortion) are seen. The clinical significance of these findings is uncertain and diagnostic considerations include idiopathic inflammatory bowel disease (i.e. Crohn's disease), which can either precede or follow a diagnosis of microscopic colitis (i.e. lymphocytic or collagenous colitis), infection, sarcoidosis, or certain medications, among others. Clinical and endoscopic correlation are recommended. The patient notes no new complaints since the procedure. He states he is still having some loose stools, but overall much less frequently. Has been taking probiotics. Patient also brings a report from functional medicine provider that he is following with outside [facility]. This mentions abnormal pancreatic elastase and calprotectin, with a recommendation to follow up with GI. Patient provided our office with a copy of report, which was sent for scanning by medical records. VITALS: Pulse (!) 59, temperature 36.3 ?C (97.4 ?F), height 180.3 cm (5' 11), weight 75.8 kg (167 lb), SpO2 96 %. General: patient is alert, cooperative, pleasant and in no acute distress On examination, the abdomen is benign. Assessment IMPRESSION: lymphocytic colitis. 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 Abnormal lab studies per-pancreatic elastase and calprotectin-per functional medicine PLAN: The operative findings and pathology report were reviewed with the patient, and the patient has had the opportunity to ask questions and have questions answered. If the patient notes any problems or changes in bowel function, the patient should contact me immediately. Based on findings of lymphocytic colitis, granuloma in Terminal ileum, and abnormal calprotectin and pancreatic elastase noted on outside studies, we would recommend evaluation by Gastroenterology Recommend a bland diet until diarrhea resolving. Avoid artificial sweeteners, anti-inflammatory medications, alcohol, caffeine and spicy foods Patient verbalized understanding of all above and agreed with the plan Diagnoses: (K50.929) Lymphocytic colitis (primary encounter diagnosis) I spent 31 minutes in the visit, with more than 50% of the total [id number]-droi time of the visit in counseling / coordination of care. Da[facility] NoteHNO ID: [id number] Author: Ruth Linder PA-C Service: ? Author Type: Physician Assessment Analyst Type: Progress Notes Filed: 03/15/2021 8:44 AM Note Text: HISTORY AND PHYSICAL Daniel Chand 1955 REFERRING PHYSICIAN: Daniel Ledezma MD CHIEF COMPLAINT: Consult (Colonoscopy) HPI: The patient is a 65 year old male referred for endoscopy. Daniel notes new complaint of diarrhea and fecal urgency x 2 months. He denies any changes in travel, sick contacts, changes in diet or new medications prior to onset. States will have loose stools with associated cramping and urgency upwards of 6 x/day. Patient reports he had stool studies completed through his PCP outside [facility], and was told those showed signs of inflammation and he was told he should have a colonoscopy. Records are not currently available for review. Patient denies any weight changes, blood in stools, black tarry stools or abdominal pain. Notes family history of colon cancer on his maternal side. The patient notes no upper GI complaints. Daniel has undergone prior endoscopy. Most recent colonoscopy 08/03/[address] Mott with no concerning findings. 5 year repeat colonoscopy was recommended due to patient's prior history of polyps. Patient's past medical history is significant for hyperlipidemia and atrial fibrillation. He follows with Dr. Art in primary care and Dr. Rankin in cardiology. Patient notes he is not maintained on any prescription medications. He does take cod liver oil, oral bee pollen and calcium/vitamin D3. Patient denies chest pain, shortness of breath or recent hospitalizations. Denies problems with sedation in the past. PAST MEDICAL HISTORY Diagnosis Date - Atrial fibrillation (HCC) - Benign neoplasm of colon - Family history of malignant neoplasm of gastrointestinal tract - Hyperlipidemia PAST SURGICAL HISTORY Procedure Laterality Date - ARTHROTOMY,OPEN REPAIR MENISCUS 09-04 Open knee reconstruction, right - COLONOS W/REM POLYP SNARE 09/08/09 - PAST SURGICAL HISTORY OF right arm with hardware, trauma - PAST SURGICAL HISTORY OF 2009 right rotator cuff repair - PAST SURGICAL HISTORY OF 2011 repair left distal bicep tendon Current Outpatient Medications Medication Sig - COLLAGEN MISC - mupirocin (BACTROBAN) 2 % ointment Apply 1 application to affected area three times daily. (Patient not taking: Reported on 03/15/2021 ) - Cod Liver Oil oil Take by mouth once daily. - BEE POLLEN ORAL Take by mouth. - CALCIUM CITRATE/VITAMIN D3 (CITRACAL + D ORAL) Take by mouth. No current facility-administered medications for this visit. ALLERGIES: Seasonal Allergies and Shrimp [Other] PERSONAL HISTORY: Social History Tobacco Use - Smoking status: Never Smoker - Smokeless tobacco: Never Used Substance Use Topics - Alcohol use: Yes - Drug use: No FAMILY HISTORY: FAMILY HISTORY Problem Relation Age of Onset - Colon Cancer Maternal Grandfather - Stroke Mother - Colon Cancer Maternal Uncle REVIEW OF SYMPTOMS: The review of systems data was entered by the nurse and reviewed by ks Nursing Notes: Stefany Benavidez LPN 03/15/2021 8:12 AM Signed REVIEW OF SYSTEMS: General: The patient denies fatigue, NOTES weight loss, denies weight gain, denies feeling hot, and denies feelings of cold. Eyes: The patient denies glaucoma, denies eye injury/surgery, wears glasses or contacts. Ear/Nose/Throat: The patient NOTES allergies, denies hayfever, denies ear infections, and denies bloody noses. Cardiovascular: The patient denies chest pain, denies heart disease, denies high blood pressure,denies cardiac stent, denies prior heart attack, NOTES irregular heart beat, denies high cholesterol, denies poor circulation, denies heart failure, other cardiac issues, denies claudication, denies cold feet, denies peripheral arterial stent. Respiratory: The patient denies tuberculosis, denies pneumonia, denies frequent cough, denies pulmonary embolism, denies shortness of breath, and denies coughing up blood. Gastrointestinal: The patient denies difficulty swallowing, NOTES acid reflux, denies ulcers, denies vomiting, denies jaundice/hepatitis, denies gallbladder problems, denies black or tarry stools, denies hemorrhoids, denies bleeding from rectum, denies diverticulitis, denies constipation, NOTES diarrhea, denies loss of stool control, and denies hernias. Kidney/Bladder: The patient denies kidney stones, denies urine infections, and denies bloody urine. Skin: The patient denies a history of skin cancer, denies bleeding/changing moles, and denies a history of skin rash. Neurologic: The patient denies a history of epilepsy/convulsions, denies headaches, denies head/spinal injuries, and denies stroke/TIA. Psychiatric: The patient denies psychiatric medications, denies depression, and denies voices, denies substance abuse. Endocrine: The patient denies thyroid disorders, denies diabetes, (more content not included)...[facility] hospitalEvaluation noteNo assessment information availableWMartin Memorial Hospital Work Phone: Evaluation note* Diagnosis Onset Date Resolution Status Arrhythmia acute [facility] Work Phone: Hospital course Narrative No data available for this section [facility] Hospital Discharge instructions No data available for this section [facility] Progress note No data available for this section [facility] Reason for referral (narrative)No reason for referral information availableWMartin Memorial Hospital Work Phone: Summary Purpose Family History No Family History Records Found Relationship Condition Age at Onset Recorded Date/T rojas mother Cerebrovascular accident (CVA) Unknown brother Arthritis Unknown Relationship Condition Age at Onset Recorded Date/T rojas mother Cerebrovascular accident (CVA) Unknown brother Arthritis Unknown father Presence of cardiac pacemaker Unknown Advance Directives No Advanced Directives Records Found Advance Directive Response Recorded Date/ Time Advance Directives Yes November 18, 2015 2:53pm Living Will Yes November 18 2:53pm Power of Wind Energy Engineer No November 18, 2015 2:53pm Advance Directive Response Recorded Date/ Time Advance Directives Yes November 18, 2015 1:53pm Living Will Yes November 18 1:53pm Power of [employer] Engineer No November 18, 2015 1:53pm Advance Directive Response Recorded Date/ Time Advance Directives Yes November 18, 2015 2:53pm Chief Complaint and Reason for Visit Chief Complaint SP DRY NEEDLE Chief Complaint DRY NEEDLING Chief Complaint EST CARE/SOB E-ORDER Reason for Visit Arrhythmia Chief Complaint EST CARE/SOB E-ORDER ARRYHTHMIA, A-FIB ARRYHTHMIA, A-FIB Reason for Visit Arrhythmia Chief Complaint SINUSITIS Chief Complaint Admit Date ACUTE SINUSITIS December 25, 2024 1:21pm SINUSITIS January 01, 2025 3:24 pm Chief Complaint Admit Date ACUTE SINUSITIS December 25, 2024 1:21pm SINUSITIS January 01, 2025 3:24 pm RIGHT SHOULDER February 01, 2025 8:59 am Room 3 February 01, 2025 9:07 am RIGHT SHOULDER PAIN March 09, 2025 10:35 am Reason for Visit Admit Date Right hip pain February 01, 2025 8:59 am Right shoulder pain February 01, 2025 8:59 am S/P right rotator cuff repair February 01, 2025 8:59am Chief Complaint Admit Date ACUTE SINUSITIS December 25, 2024 1:21pm SINUSITIS January 01, 2025 3:24 pm RIGHT SHOULDER February 01, 2025 8:59 am Room 3 February 01, 2025 9:07 am RIGHT SHOULDER PAIN March 09, 2025 10:35 am nonspecific abnormal finding of lung fie ld March 16, 2025 7:35am RIGHT SHOULDER March 23, 2025 8:45a m Reason for Visit Admit Date Right hip pain February 01, 2025 8:59 am Right shoulder pain February 01, 2025 8:59 am S/P right rotator cuff repair February 01, 2025 8:59am Right rotator cuff tear March 23, 2025 8 :45am Right shoulder pain March 23, 2025 8:45a m Additional Source Comments (unrecognized sect ion and content) No Status Records FoundNo Status Records FoundNo Status Records Found INFORMATION SOURCE (unrecogn ized section and content) DATE CREATED AUTHOR 12/01/2021 [facility] DATE CREATED AUTHOR AUTHOR'S ORGANIZ ATION 04/07/2023 [facility] ([place]) DATE CREATED AUTHOR AUTHOR'S ORGANIZ ATION 03/29/2025 [facility] Goals (unrecognized section and content) Goals may be documented in a n alternate sectionGoals may be documented in an alternate sectionGoals may be documented in an alternate section No data available for this sectionGoals may be documented in an alternate sectionGoals may be documented in an alternate sectionGoals may be documented in an alternate sectionGoals may be documented in an alternate sectionGoals may be documented in an alternate sectionGoals may be documented in an alternate sectionGoals may be documented in an alternate sectionGoals may be documented in an alternate section Care Teams (unrecognized sec tion and content) Team Status: Active Member Role Status Dates Dr. Daniel Ledezma MD Family Provider Active Dr. Mare Castellano MD Primary Care Provider Active Team Status: Inactive Member Role Status Dates Dr. Mare Castellano MD Primary Care Provider, Referrin g Provider Active Dr. Ghulam Rankin MD Attending Provider Active Team Status: Inactive Member Role Status Dates Dr. Mare Castellano MD Primary Care Provider Active Roya Patel DO Attending Provider Active Team Status: Inactive Member Role Status Dates Dr. Mare Castellano MD Primary Care Provider Active Dr. Ghulam Rankin MD Attending Provider, Referring Pro vider Active Team Status: Active Member Role Status Dates Dr. Mare Castellano MD Primary Care Provider Active Dr. Ghulam Rankin MD Attending Provider, Referring Provider, Other Provider Active Team Status: Inactive Member Role Status Dates Dr. Mare Castellano MD Primary Care Provider Active Dr. Rory Hines MD Attending Provider, Referring P tracy Active Team Status: Active Member Role Status Dates Dr. Nicole Echeverria DO Primary Care Provider Active Team Status: Inactive Member Role Status Dates Dr. Nicole Echeverria DO Primary Care Provider Active Start: December 25, 2024 End: December 25, 2024 Dr. Nicole Echeverria DO Attending Provider Active Start: December 25, 2024 End: December 25, 2024 Dr. Nicole Echeverria DO Referring Provider Active Start: December 25, 2024 End: December 25, 2024 Team Status: Active Member Role Status Dates Dr. Nicole Echeverria DO Primary Care Provider Active Start: January 01, 2025 Dr. Jerrod Swain MD Attending Provider Activ e Start: January 01, 2025 Dr. Jerrod Swain MD Referring Provider Activ e Start: January 01, 2025 Team Status: Inactive Member Role Status Dates Dr. Nicole Echeverria DO Primary Care Provider Active Start: January 01, 2025 End: January 01, 2025 Dr. Jerrod Swain MD Attending Provider Activ e Start: January 01, 2025 End: January 01, 2025 Dr. Jerrod Swain MD Referring Provider Activ e Start: January 01, 2025 End: January 01, 2025 Team Status: Inactive Member Role Status Dates Dr. Nicole Echeverria DO Primary Care Provider Active Start: February 01, 2025 End: February 01, 2025 Dr. Nicole Echeverria DO Referring Provider Active Start: February 01, 2025 End: February 01, 2025 Dru Wilson MD Attending Provider Active St art: February 01, 2025 End: February 01, 2025 Team Status: Inactive Member Role Status Dates Dr. Nicole Echeverria DO Primary Care Provider Active Start: February 01, 2025 End: February 01, 2025 Dr. Ghulam Rankin MD Attending Provider Active S tart: February 01, 2025 End: February 01, 2025 Team Status: Inactive Member Role Status Dates Dr. Nicole Echeverria DO Primary Care Provider Active Start: March 09, 2025 End: March 09, 2025 Dru Wilson MD Attending Provider Active St art: March 09, 2025 End: March 09, 2025 Dru Wilson MD Referring Provider Active St art: March 09, 2025 End: March 09, 2025 Team Status: Inactive Member Role Status Dates Dr. Nicole Echeverria DO Primary Care Provider Active Start: March 16, 2025 End: March 16, 2025 Dr. Nicole Echeverria DO Attending Provider Active Start: March 16, 2025 End: March 16, 2025 Dr. Nicole Echeverria DO Referring Provider Active Start: March 16, 2025 End: March 16, 2025 Team Status: Inactive Member Role Status Dates Dr. Nicole Echeverria DO Primary Care Provider Active Start: March 23, 2025 End: March 23, 2025 Dr. Nicole Echeverria DO Referring Provider Active Start: March 23, 2025 End: March 23, 2025 Dru Wilson MD Attending Provider Active St art: March 23, 2025 End: March 23, 2025 Team Status: Inactive Member Role Status Dates Dr. Nicole Echeverria DO Primary Care Provider Active Start: March 23, 2025 End: March 23, 2025 Dr. Kumar Israel MD Attending Provider Active Start: March 23, 2025 End: March 23, 2025 Dr. Kumar Israel MD Referring Provider Active Start: March 23, 2025 End: March 23, 2025 FOR RECORDS PERTAINING TO PATIENTS WHO ARE OR HAVE BEEN ENROLLED IN A CHEMICAL DEPENDENCY/SUBSTANCEABUSE PROGRAM, SOME INFORMATION MAY BE OMITTED. This clinical summary was aggregated from multiple sources. Caution should be exercised in using it in the provision of clinical care. This summary normalizes information from multiple sources, and as a consequence, information in this document may materially change the coding, format and clinical context of patient data. In addition, data may be omitted in some cases. CLINICAL DECISIONS SHOULD BE BASED ON THE PRIMARY CLINICAL RECORDS. [employer] provides no warranty or guarantee of the accuracy or completeness of information in this document.
[2025-05-09 15:07] LABS: Immunoglobulin A 274 mg/dL (61-437); Immunoglobulin G 1102 mg/dL (603-1613); Immunoglobulin M 76 mg/dL (15-143)
== END | disposition home or self-care (01) ==
LOC: LAB 09:32
PROVIDERS: PCP Internal Medicine; Referring Provider Internal Medicine Pulmonary Disease; Visit Provider Internal Medicine Pulmonary Disease
DX: R06.00 Dyspnea, unspecified (principal); R91.8 Other nonspecific abnormal finding of lung field
CPT/HCPCS: 36415; 82784; 82785

== ENCOUNTER → 2025-05-11 | Outpatient (CLI) | payer MEDICARE, OTHER, SELFPAY ==
--- NOTE | 2025-05-11 11:24 | RAD_ITS ---
EXAM: XR Chest, 2 Views CLINICAL INDICATION: DYSPNEA TECHNIQUE: Frontal and lateral views of the chest. COMPARISON: No relevant prior studies available. FINDINGS: LUNGS AND PLEURAL SPACES: Interstitial and patchy airspace disease of both lungs. Underlying nodules can not be entirely excluded. No consolidation. No pneumothorax. HEART: Unremarkable. No cardiomegaly. MEDIASTINUM: Unremarkable. Normal mediastinal contour. BONES/JOINTS: Unremarkable. No acute fracture. RAD/Chest PA and Lateral IMPRESSION: Interstitial and patchy airspace disease of both lungs. Underlying nodules can not be entirely excluded. Reading [facility]
--- NOTE | 2025-05-11 11:24 | RAD_ITS ---
EXAM: XR Chest, 2 Views CLINICAL INDICATION: DYSPNEA TECHNIQUE: Frontal and lateral views of the chest. COMPARISON: No relevant prior studies available. FINDINGS: LUNGS AND PLEURAL SPACES: Interstitial and patchy airspace disease of both lungs. Underlying nodules can not be entirely excluded. No consolidation. No pneumothorax. HEART: Unremarkable. No cardiomegaly. MEDIASTINUM: Unremarkable. Normal mediastinal contour. BONES/JOINTS: Unremarkable. No acute fracture. RAD/Chest PA and Lateral IMPRESSION: Interstitial and patchy airspace disease of both lungs. Underlying nodules can not be entirely excluded. Reading Location[facility]
--- OUTSIDE RECORDS SUMMARY | 2025-05-11 20:58 | XMS RPT_ITS | CCD ---
Author Organization [facility] Care Team Providers Care Patient Placement Coordinator Name Role Phone PHYSICIAN, NONE Primary Care Physician Unavailab bird DONIS MD, DR MIREILLE ARSHAD Attending U navailable PHYSICIAN, NONE Primary Care Unavailable JULISA GARCIA CNP Attending Unavailable PHYSICIAN, NONE Primary Care Unavailable JEWELS BUSTILLOS, DR MIREILLE ARSHAD Attending U navailable PHYSICIAN, NONE Primary Care Unavailable Dr. Mare Castellano Primary Care Provider Dr. Mare Castellano Referring Provider Dr. Ghulam Rankin Attending Provider Dr. Ghulam Rankin Referring Provider Dr. Ghulam Rankin Other Provider Jacki MALIK, Dr. Rivera Primary Care Provider Dr. Nicole Echeverria DO Attending Provider Dr. Nicole Echeverria DO Referring Provider Dr. Jerrod Swain MD Attending Provider Dr. Jerrod Swain MD Referring Provider Dru Wilson MD Attending Provider [phone] Ghulam Rankin MD Attending Provider [phone] Dru Wilson MD Referring Provider [phone] Kumar Israel MD, V Attending Provider Dr. Kumar Israel MD, V Referring Provider Ghulam Rankin Attending Unavailable Nicole Echeverria Primary Care Unavailable Nicole Echeverria Referring Unavailable Nicole Echeverria Primary Care Unavailable Nicole Echeverria Attending Unavailable Sibilia, Kumar V Referring Unavailable Jacki, Nicole Primary Care Unavailable Sibilia, Kumar V Attending Unavailable Sibilia, Kumar V Referring Unavailable Jacki, Nicole Primary Care Unavailable Sibilia, Kumar V Attending Unavailable Jacki, Nicole Primary Care Unavailable WartmannJerrod Attending Unavailabl e Wartmann, Jerrod Referring Unavailabl e JackiNicole worthy Attending Unavailable Jacki, Nicole Referring Unavailable Jacki, Nicole Primary Care Unavailable Sibilia, Kumar V Attending Unavailable Sibilia, Kumar V Referring Unavailable Jacki, Nicole Primary Care Unavailable Jacki, Nicole Primary Care Unavailable Dru Wilson Attending Unavailable Dru Wilson Referring Unavailable Jacki, Nicole Referring Unavailable Jacki, Nicole Primary Care Unavailable Dru Wilson Attending Unavailable Jacki, Nicole Referring Unavailable Jacki, Nicole Primary Care Unavailable Dru Wilson Attending Unavailable Jacki , Dr. Rivera Primary Care Provider Dr. Nicole Echeverria DO Referring Provider Jacki MALIK, Dr. Rivera Attending Provider [phone] Allergies Allergy Classification Reported Allergen(s) Allergy Type Date of Onset Reaction(s) Facility (8 sources) shrimp allergenic extract Drug Allergy 8 [facility] (2 sources) ventin Allergy to substance 7 [facility] Work Phone: (10 sources) Desvenlafaxine Drug Allergy 2 [facility] (1 source) Desvenlafaxine Drug Allergy 5 [facility] (1 source) Shrimp product Drug allergy (disorder) 3 [facility] Medications Current Medications Medication Drug Class(es) Dates Sig (Normalized) Sig (Original) Cyanocobalamin-Live r Extract (6 sources) Start: 04-17-2023 take 1 tablet by mouth once daily Cyanocobalamin-Claudia er Extract Active 1 TABLET PO DAILY April 17, 2023 10:05am Start: 04-15-2023 End: 04-17-2023 Cyanocobalamin-Liver Extract Discontinued TABLET PO April 15, 2023 12:00am April 17, 2023 10:06am Cyanocobalamin-Liver Extract tablet (12 sources) Start: 04-17-2023 Cyanocobalamin -Liver Extract tablet Active 1 {tbl} PO DAILY April 17, 2023 10:05am Start: 04-15-2023 End: 04-17-2023 Cyanocobalamin-Liver Extract tablet Discontinued {tbl} PO April 15, 2023 12:00am April 17, 2023 10:06am folic acid 15 mg oral tablet (9 sources) Start: 04-15-2023 take 1 tablet by mouth once daily Folic Acid 15 mg tablet Active 15 mg PO DAILY April 15, 2023 12:00am magnesium oxide 500 mg oral tablet (9 sources) Start: 04-15-2023 take 1 tablet by mouth once daily Magnesium Oxide 500 mg tablet Active 500 mg PO DAILY April 15, 2023 12:00am Turmeric Root Extract (3 sources) Start: 04-15-2023 take 500 mg by mouth once daily Turmeric Root Extract Active 500 MG PO DAILY April 15, 2023 12:00am Turmeric Root Extract 500 mg capsule (6 sources) Start: 04-15-2023 take 1 capsule by mouth once daily Turmeric Root Extract 500 mg capsule Active 500 mg PO DAILY April 15, 2023 12:00am Completed/Discontinued Medications Medication Drug Class(es) Dates Sig (Normalized) Sig (Original) acetaminophen 325 mg / oxyCODONE hydrochloride 5 mg oral tablet (12 sources) Opioid Agonist Start: 11-22-2015 End: 04-15-2023 [...] 1:00am Calcium Phosphate-Vitamin D3 1 EACH tablet,chewable (6 sources) Start: 11-18-2015 End: 04-15-2023 Calcium Phosphate-Vitamin D3 1 EACH tablet,chewable Discontinued 1 NMA PO DAILY November 18, 2015 1:00am April 15, 2023 10:55am docusate sodium 100 mg oral capsule (12 sources) Start: 11-22-2015 End: 04-15-2023 take 1 capsule by mouth twice daily as needed for constipation Docusate Sodium 100 MG capsule Discontinued 100 mg PO TWICE DAILY NEEDED as needed for Constipation 10 November 22, 2015 1:00am April 15, 2023 10:55am Multivitamin 1 EACH tablet (6 sources) Start: 11-18-2015 End: 04-15-2023 Multivitamin 1 [...] 1:00am promethazine hydrochloride 25 mg oral tablet (12 sources) Phenothiazine Start: 11-22-2015 End: 04-15-2023 take 1 tablet by mouth every four hours as needed for nausea Promethazine 25 MG tablet Discontinued 25 mg PO EVERY 4 HOURS NEEDED as needed for Nausea 10 November 22, 2015 1:00am April 15, 2023 10:56am Problems Active Problems Problem Classification Problem Date Documented Da te Episodic/Chronic Cardiac dysrhythmias (20 sources) Cardiac arrhythmia; Translations: [Cardiac arrhythmia, unspecified] 04-17-2023 Chronic Disorders of lipid metabolism (9 sources) Hyperlipidemia; Translations: [Hyperlipidemia, unspecified] 04-15-2023 Chronic Heart valve disorders (9 sources) Mitral valve prolapse; Translations: [Nonrheumatic mitral (valve) prolapse] 04-15-2023 Chronic Other and ill-defined heart disease (9 sources) Atrial septal aneurysm; Translations: [Aneurysm of heart] 04-15-2023 Chronic Other connective tissue disease (4 sources) Tear of right rotator cuff; Translations: [Unspecified rotator cuff tear or rupture of right shoulder, not specified as traumatic] 03-23-2025 Episodic Other lower respiratory disease (2 sources) Other nonspecific abnormal finding of lung field; Translations: [Other nonspecific abnormal finding of lung field] Onset: 2025 Episodic Other lower respiratory disease (1 source) Solitary pulmonary nodule; Translations: [Solitary pulmonary nodule] Onset: 03-29-2025 Episodic Other non-traumatic joint disorders (11 sources) Pain in right shoulder; Translations: [Right shoulder pain] Onset: 03-13-2025 02-01-2025 Episodic Other non-traumatic joint disorders (8 sources) Hip pain; Translations: [Pain in right hip] 02-01-2025 Episodic Other upper respiratory infections (1 source) Chronic sinusitis, unspecified; Translations: [Chronic sinusitis, unspecified] Onset: 01-14-2025 Chronic Unclassified (9 sources) Pain of right hip; Translations: [M25.551 - Pain in right hip] Past or Other Problems Problem Classification Problem Date Documented Date Episodic/Chronic Other non-traumatic joint disorders (1 source) Pain in right hip; Translations: [Pain in right hip] Onset: 02-01-2025 Episodic Other upper respiratory infections (1 source) Other acute sinusitis; Translations: [Other acute sinusitis] Onset: 01-07-2025 Episodic Residual codes; unclassified (1 source) Other specified postprocedural states; Translations: [Other specified postprocedural states] Onset: 02-01-2025 Episodic Results Test Name Value Interpretation Reference Range Facility IgEOrdered By: Kumar sylvester on 05-05-2025 IgE 27 IU/mL 6-495 [facility] Comment on above: Performed at: [address] [id number] Director: Dontae Rehman PhD, Phone: [phone] at: [facility] [place] [id number] Director: Lorena Thurston MD, Phone: [phone] Serum or plasma IgA measurem ent (mass/volume)Ordered By: Kumar Israel on 05-05-2025 IgA [Mass/Vol] 274 mg/dL 61-437 [facility] Serum or plasma IgG measurem ent (mass/volume)Ordered By: Kumar Israel on 05-05-2025 IgG [Mass/Vol] 1102 mg/dL 603-1613 [facility] Immunoglobulins G/A/M/Robert IMMUNOGLOB A QN 321 mg/dL Normal 61-437 [facility] Comment on above: Order Comment: N Performed By: #### L 3200.1100 #### [facility] [address] [place], [place], [id number] IMMUNOGLOB E QN 27 IU/mL Normal 6-495 [facility] Comment on above: Order Comment: N Result Comment: Perf ormed at: - [facility] [id number] [employer] Laster: Dontae Rehman PhD, Phone: [phone] Performed at: [facility] [id number] [employer] Laster: Lorena Thurston MD, Phone: [phone] Performed By: #### L 3200.1100 #### [facility] [address] [place], [place], [id number] IMMUNOGLOB G QN 1199 mg/dL Normal 603-1613 [facility] Comment on above: Order Comment: N Performed By: #### L 3200.1100 #### [facility] [address] [place], [place], [id number] (267) IMMUNOGLOB M QN 107 mg/dL Normal 15-143 [facility] Comment on above: Order Comment: N Performed By: #### L 3200.1100 #### [facility] [address] [place], [place], [address] IgEOrdered By: Kumar sylvester on 03-23-2025 IgE 27 IU/mL 6-495 [facility] Comment on above: Performed at: CB - [facility] [address] [place], [place] [id number] Director: Dontae Rehman PhD, Phone: [phone] at: BN - [facility] [address] [id number] Director: Lorena Thurston MD, Phone: [phone] Orthopedic Visit Reporton Orthopedic Visit Report [facility] [address] [place] [address] OFFICE VISIT Date of Service: 03/23/25 MR#: [id number] Acct: [id number] Name: DANIEL CHAND Rep #: [id number] : 1955 Provider: Dr. Dru worthy MD Age/Sex: 70/M Location[place] [facility] [place] Status: Signed Intake Vital Signs 02/01/25 08:59 Height 6 ft Weight: 172 lb 4 oz BMI 23.3 Intake Visit Reasons: RIGHT SHOULDER Accompanied by: Self Is patient in pain?: Yes Allergies desvenlafaxine Allergy (Mild, Verified 03/23/25 08:50) Hives Have you fallen in the past year?: No [facility] Medical History (Updated 03/23/25 @ 09:08 by [...] by me, Dr. Dru Wilson MD 03/23/25 0829. Part of today???s visit was documented by [ ], acting as scribe. DANIEL CHAND is a 70 year old M here today for FU R shoulder MRI. He was actually doing 10 pull-ups this weekend doing a [employer] workout. He has more concerns of weakness but that does cause some pain. Supplemental Info [facility] Imaging Services [address] [place] [address] Upper Ext Joint Only(Routine) MR#: [id number] Acct: [id number] Name: DANIEL CHAND Rep #: [id number] : 1955 M 69 From: Everton Stewart MD PCP: Dr. Nicole Echeverria, Status: REG CLI Study: Upper Ext Joint Only(Routine) Date of Exam: 03/09/25 Exam# [id number] Ordering Dr: Dru Wilson MD PROCEDURE: UPPER [...] and Plan (more content not included)... Normal [facility] Serum or plasma IgA measurem ent (mass/volume)Ordered By: Kumar Israel on 03-23-2025 IgA [Mass/Vol] 321 mg/dL 61-437 [facility] Serum or plasma IgG measurem ent (mass/volume)Ordered By: Kumar Israel on 03-23-2025 IgG [Mass/Vol] 1199 mg/dL 603-1613 [facility] Chest WITH Contraston 2024 Chest WITH Contrast [facility] Imaging Services [address] [place] [id number] Chest WITH Contrast MR#: [id number] Acct: [id number] Name: DANIEL CHAND Rep #: [id number] : 1955 M 69 From: Rajesh avalos MD PCP: Dr. Nicole Echeverria, Status: REG CLI Study: Chest WITH Contrast Date of Exam: 03/16/25 Exam# [id number] Ordering Dr: Nicole Echeverria DO PROCEDURE: CHEST [...] lobe. Radiographic follow-up is recommended. Reading Location: [place] [address] CC: Dr. Nicole Echeverria DO Refining Still Operator: Signed Normal [facility] Magnetic resonance imaging r eportOrdered By: Everton Stewart on 03-10-2025 Study report [facility] Imaging Services [address] [place], [place] [id number] Upper Ext Joint Only(Routine) MR#: [id number] Acct: [id number] Name: DANIEL CHAND Rep #: [id number] : 1955 M 69 From: Jeffrey Stewart MD PCP: Dr. Nicole Echeverria DO Status: RE G CLI Study:Upper Ext Joint Only(Routine) Date of Exam: 03/09/25 Exam# [id number] Ordering Dr: Dru Wilson MD PROCEDURE: UPPER [...] Echeverria DO; Dr. Dru Wilson MD ~ Refining Still Operator: Signed [facility] Upper Ext Joint Only(Routine )on 03-09-2025 Upper Ext Joint Only(Routine) [facility] Imaging Services [address] [place], [place] [id number] Upper Ext Joint Only(Routine) MR#: [id number] Acct: [id number] Name: DANIEL CHAND Rep #: [id number] : 1955 M 69 From: Everton Stewart MD PCP: Dr. Nicole Echeverria DO Status: REG CLI Study: Upper Ext Joint Only(Routine) Date of Exam: 0 03/09/25 Exam# [id number] Ordering Dr: Dru Wilson MD PROCEDURE: UPPER [...] Nicole Echeverria DO; Dr. Dru Wilson MD Refining Still Operator: Signed Normal [facility] HIP, UNI W/ Pelvis 2-3 Views on 02-01-2025 HIP, UNI W/ Pelvis 2-[address] [facility] Imaging Services [address] [place] [address] HIP, UNI W/ Pelvis 2-3 Views MR#: [id number] Acct: [id number] Name: DANIEL CHAND Rep #: [id number] : 1955 M 69 From: Ranjith Briceno i, DO PCP: Dr. Nicole Echeverria DO Status: DEP AMB Study: HIP, UNI W/ Pelvis 2-3 Views Date of Exam: 05/21 Exam# [id number] Ordering Dr: Dru Wilson MD PROCEDURE: Pelvis [...] joint. Severe degenerative change left hip joint. Reading Location: [place] CC: Dr. Nicole Echeverria DO; Dr. Dru Wilson MD Refining Still Operator: Signed Normal [facility] Orthopedic Visit Reporton Orthopedic Visit Report [facility] [address] [place] [address] OFFICE VISIT Date of Service: 02/01/25 MR#: [id number] Acct: [id number] Name: DANIEL CHANDICK Rep #: [id number] : 1955 Provider: Dr. Dru worthy MD Age/Sex: 69/M Location: [facility] [place] Status: Signed Intake Vital Signs 04/17/23 09:59 [...] repair [address] Shah [facility]. Has been doing well since then. Has [...] to relax (more content not included)... Normal [facility] Shoulder min 2 Viewson 02-01 Shoulder min [address] [facility] Imaging Services [address] [place] [address] Shoulder min 2 Views MR#: [id number] Acct: [id number] Name: DANIEL CHAND Rep #: [id number] : 1955 M 69 From: Ranjith Briceno i DO PCP: Dr. Nicole Echeverria, Status: DEP AMB Study: Shoulder min 2 Views Date of Exam: 02/01/25 Exam# [id number] Ordering Dr: Dru Wilson MD PROCEDURE: Right [...] Eastern standard time on 02/01/2025. [facility] CC: Dr. Nicole Echeverria DO; Dr. Dru Wilson MD Refining Still Operator: Signed Normal [facility] Nasopharyngeal Cultureon NAC Acinetobacter baumannii Amount [...] S Vancomycin Islt GARCIA 1 S Normal [facility] Comment on above: Performed By: #### M 100.2500, M100.1999 #### [facility] [address] [place], [place], [address] Gram Stainon 01-02-2025 GS Positive Normal [facility] Comment on above: Performed By: #### M 100.2500, M100.1999 #### [facility] [address] [place], [place], [address] Gram stainOrdered By: Fer Swain on 01-01-2025 Microscopic observation Gram stain Nom (Unsp spec) [facility] Nasopharyngeal cultureOrdere d By: Jerrod Swain on 01-01-2025 Nasopharyngeal Culture Acinetobacter baumannii Abnormal [facility] Nasopharyngeal Culture Staphylococcus aureus Abnormal [facility] Sinus/Facial Boneon 12-25-19 Sinus/Facial Bone [facility] Imaging Services [address] [place], [place] [address] Sinus/Facial Bone MR#: [id number] Acct: [id number] Name: DANIEL CHAND Rep #: [id number] : 1955 M 69 From: Rajesh avalos MD PCP: Dr. Nicole Echeverria DO Status: REG CLI Study: Sinus/Facial Bone Date of Exam: 12/25/24 Exam# [id number] Ordering Dr: Nicole Echeverria DO PROCEDURE: SINUS/FACIAL [...] use of iterative reconstruction technique). Reading Location: [id number] CC: Dr. Nicole Echeverria DO Refining Still Operator: Signed Normal [facility] Gram stain for investigation of transfusion reactionOrdered By: Rory Hines on 02-11-2024 Microscopic observation Gram stain Nom (Unsp spec) [facility] No Panel InformationOrdered By: Rory Hines on 02-11-2024 Nasopharyngeal Culture No growth in 48 hours. [facility] Absolute lymphocyte countOrd ered By: Dr. Rankin on 04-17-2023 Lymphocytes Auto (Unsp spec) [#/Vol] 1.59 10*3/uL 0.83-4.51 [facility] Basophil percentageOrdered B y: Dr. Rankin on 04-17-2023 Basophils/100 WBC (Bld) 0.7 % 0-1 [facility] Chloride [Moles/Vol] 108 mmol/L 98-107 [facility] Eosinophils/100 WBC (Bld) 5.5 % 0-5 [facility] Glucose [Mass/Vol] 91 mg/dL 74-106 [facility] Neutrophils (Bld) [#/Vol] 2.9 10*3/uL 2.0-7.7 [facility] Neutrophils/100 WBC (Bld) 52.4 % 47-70 [facility] Potassium [Moles/Vol] 4.5 mmol/L 3.5-5.1 [facility] Sodium [Moles/Vol] 138 mmol/L 136-145 [facility] WBC (Bld) [#/Vol] 5.5 10*3/uL 4.4-11.0 [facility] Blood erythrocytes count (nu mber/volume)Ordered By: Dr. Rankin on 04-17-2023 RBC (Bld) [#/Vol] 5.29 10*6/uL 4.6-6.2 [facility] Blood hemoglobin measurement (mass/volume)Ordered By: Dr. Rankin on 04-17-2023 Hemoglobin (Bld) [Mass/Vol] 16.0 g/dL 13.0-16.5 [facility] Blood lymphocytes/100 leukoc ytesOrdered By: Dr. Rankin on 04-17-2023 Lymphocytes/100 WBC (Bld) 29.1 % 19-41 [facility] Blood monocytes/100 leukocyt esOrdered By: Dr. Rankin on 04-17-2023 Monocytes/100 WBC (Bld) 12.1 % 0-10 [facility] Blood platelet mean volumeOr dered By: Dr. Rankin on 04-17-2023 Platelet mean volume (Bld) [Entitic vol] 10.2 fL 6.2-12.0 [facility] Determination of erythrocyte mean corpuscular volume (MCV)Ordered By: Dr. Rankin on 04-17-2023 MCV (RBC) [Entitic vol] 91.5 fL 80-94 [facility] Hematocrit Auto (Bld) [Volum e fraction]Ordered By: Dr. Rankin on 04-17-2023 Hematocrit (Bld) [Volume fraction] 48.4 % 40-54 [facility] Laboratory - Chemistry and C hemistry - challengeOrdered By: Dr. Rankin on 04-17-2023 CO2 [Moles/Vol] 27.0 mmol/L 21.0-32.0 [facility] Urea nitrogen/Creatinine [Mass ratio] 19.5 mg/mg 10-20 [facility] - Hematology and Cell countsOrdered By: Dr. Rankin on 04-17-2023 Erythrocyte distribution width (RBC) [Entitic vol] 48.0 fL 35.1-43.9 [facility] Erythrocyte distribution width (RBC) [Ratio] 14.4 % 11.6-14.6 [facility] Immature granulocytes/100 WBC (Bld) 0.200 % 0.0-0.9 [facility] Comment on above: IG% - Immature Granu locytes (promyelocytes, myelocytes and metamyelocytes) > 1% indicates that a LEFT SHIFT is Present. MCH (RBC) [Entitic mass] 30.2 pg 27.0-32.0 [facility] Nucleated RBC/100 WBC (Bld) [Ratio] 0 % 0-5 [facility] MCHC Auto (RBC) [Mass/Vol]Or dered By: Dr. Rankin on 04-17-2023 MCHC (RBC) [Mass/Vol] 33.1 g/dL 32-36 [facility] No Panel InformationOrdered By: Dr. Rankin on 04-17-2023 Estimated GFR (MDRD) Amer 112 mL/min >60 [facility] Comment on above: GFR Calc Estimated GFR (MDRD) Non-Af Amer 92 mL/min >60 [facility] Comment on above: Non- GFR Calc Thyroid Stimulating Hormone (TSH) 1.11 uIU/mL 0.358-3.74 [facility] Platelets bldOrdered By: Dr. Rankin on 04-17-2023 Platelets (Bld) [#/Vol] 180 10*3/uL 150-450 [facility] Serum or plasma calcium merrill urement (mass/volume)Ordered By: Dr. Rankin on 04-17-2023 Calcium [Mass/Vol] 8.8 mg/dL 8.5-10.1 [facility] Serum or plasma creatinine m easurement (mass/volume)Ordered By: Dr. Rankin on 04-17-2023 Creatinine [Mass/Vol] 0.87 mg/dL 0.70-1.30 [facility] Comment on above: The validity of the calculated GFR & GFRAA in patients over 70 years has not been determined. Clinical correlation is essential. Serum or plasma urea nitroge n measurement (mass/volume)Ordered By: Dr. Rankin on 04-17-2023 Urea nitrogen [Mass/Vol] 17 mg/dL 7-18 [facility] Thin prep Papanicolaou smear with manual screeningOrdered By: Dr. Rankin on 04-17-2023 Thin prep Papanicolaou smear with manual screening 3 5-15 [facility] MISCon 04-03-2023 Misc. Send Out See Comments Normal [facility] ([place]) Comment on above: Result Comment: Comp lete reference lab report scanned to EMR. Performed By: #### C ARBAYRONM, ANEU, ADIFF, CARDIG, CBC, CARDIA #### [address] [address] [facility] 03-15-2023 Cardiolipin IgA Ab 13.1 APL High <12.0 [facility] ([place]) Comment on above: Result Comment: <12 APL Negative 12-20 APL Indeterminate >20 APL Positive The following results were obtained with the [employer] QUANTA Lite VICKI IgA III NASH. Cardiolipin [...] others. Clinical correlation is required. Performed By: [facility] [employer] [address] [place] [address] [employer] Thread Laster: Azael Pratt III, M.D. CLIA#: [id number] Performed By: #### C EWELINA PARK ADIFF, CARDIJoe, CBC, CARDIA #### [place] [address] [place], [place] [address] [facility] 03-15-2023 IgG Cardiolipin Ab <9.0 Normal <15.0 [facility] ([place]) Comment on above: Result Comment: <15 GPL Negative 15-20 GPL Indeterminate >20 GPL Positive The following results were obtained with the [employer] QUANTA Lite VICKI IgG III NASH. Cardiolipin [...] Clinical correlation is required. Performed By: [facility] [place] [id number] [employer] Laster: Azael Pratt III, M.D. CLIA#: [id number] Performed By: #### C EWELINA PARK ADIFF, CARDIG, CBC, CARDIA #### [place] [address] [place], [place] [address] [facility] 03-15-2023 IgM Cardiolipin Ab 42.2 MPL High <12.5 [facility] ([place]) Comment on above: Result Comment: <12. 5 MPL Negative 12.5-20 MPL Indeterminate >20 MPL Positive The following results were obtained with the [employer] QUANTA Lite VICKI IgM III NASH. Cardiolipin IgM [...] Clinical correlation is required. Performed By: [facility] [place] [address] [employer] Laster: AzaelSilvino Jay III#: [id number] Performed By: #### C ARDIM, ANEU, ADIFF, CARDIG, CBC, CARDIA #### [address] [address] .Auto Diffon 03-14-2023 Basophil, Absolute 0.0 10 3/mcL Normal 0.0-0.2 [facility] ([place]) Comment on above: Performed By: #### C ARDIM, ANEU, ADIFF, CARDIG, CBC, CARDIA #### [address] [address] Basophils/100 WBC (Bld) 0.8 % Normal 0.0-2.5 [facility] ([place]) Comment on above: Performed By: #### C ARDIM, ANEU, ADIFF, CARDIG, CBC, CARDIA #### [address] [address] [address] Eosinophil, Absolute 0.3 10 3/mcL Normal 0.0-0.4 [facility] ([place]) Comment on above: Performed By: #### C ARDIM, ANEU, ADIFF, CARDIG, CBC, CARDIA #### [address] [address] Eosinophils/100 WBC (Bld) 5.7 % Normal 0.0-7.0 [facility] ([place]) Comment on above: Performed By: #### C ARDIM, ANEU, ADIFF, CARDIG, CBC, CARDIA #### [address] [address] Lymphocyte, Absolute 1.4 10 3/mcL Normal 0.8-3.9 [facility] ([place]) Comment on above: Performed By: #### C ARDIM, ANEU, ADIFF, CARDIG, CBC, CARDIA #### [address] [address] Lymphocytes/100 WBC (Bld) 26.9 % Normal 10.0-50.0 [facility] ([place]) Comment on above: Performed By: #### C ARDIM, ANEU, ADIFF, CARDIG, CBC, CARDIA #### [address] [address] Monocyte, Absolute 0.8 10 3/mcL Normal 0.2-1.0 [facility] ([place]) Comment on above: Performed By: #### C ARDIM, ANEU, ADIFF, CARDIG, CBC, CARDIA #### [place] [address] Monocytes/100 WBC (Bld) 15.6 % High 1.7-13.0 [facility] ([place]) Comment on above: Performed By: #### C ARDIM, ANEU, ADIFF, CARDIG, CBC, CARDIA #### [place] [address] Neutrophils/100 WBC (Bld) 51.0 % Normal 37.0-80.0 [facility] ([place]) Comment on above: Performed By: #### C ARDIM, ANEU, ADIFF, CARDIG, CBC, CARDIA #### [place] [address] .NEUABSon 03-14-2023 Neutrophil, Absolute 2.7 10 3/mcL Low 2.9-6.2 [facility] ([place]) Comment on above: Performed By: #### C ARDIM, ANEU, ADIFF, CARDIG, CBC, CARDIA #### [place] [address] CBCon 03-14-2023 Erythrocyte distribution width (RBC) [Ratio] 14.5 % Normal 11.5-14.5 [facility] ([place]) Comment on above: Performed By: #### C ARDIM, ANEU, ADIFF, CARDIG, CBC, CARDIA #### [place] [address] Hematocrit (Bld) [Volume fraction] 46.5 % Normal 42.0-52.0 [facility] ([place]) Comment on above: Performed By: #### C ARDIM, ANEU, ADIFF, CARDIG, CBC, CARDIA #### [place] [address] Hgb 15.8 G/dL Normal 14.0-18.0 [facility] ([place]) Comment on above: Performed By: #### C ARDIM, ANEU, ADIFF, CARDIG, CBC, CARDIA #### [address] [address] MCH (RBC) [Entitic mass] 30.0 pg Normal 27.0-31.2 [facility] ([place]) Comment on above: Performed By: #### C ARDIM, ANEU, ADIFF, CARDIG, CBC, CARDIA #### [place] [address] MCHC 33.9 G/dL Normal 31.8-35.4 [facility] ([place]) Comment on above: Performed By: #### C ARDIM, ANEU, ADIFF, CARDIG, CBC, CARDIA #### [place] [address] MCV (RBC) [Entitic vol] 88.4 fL Normal 80.0-94.0 [facility] ([place]) Comment on above: Performed By: #### C ARDIM, ANEU, ADIFF, CARDIG, CBC, CARDIA #### [place] [address] Platelet 179 10 3/mcL Normal 130-400 [facility] ([place]) Comment on above: Performed By: #### C ARDIM, ANEU, ADIFF, CARDIG, CBC, CARDIA #### [place] [address] Platelet mean volume (Bld) [Entitic vol] 8.7 fL Normal 7.4-10.4 [facility] ([place]) Comment on above: Performed By: #### C ARDIM, ANEU, ADIFF, CARDIG, CBC, CARDIA #### [place] [id number] RBC 5.26 10 6/mcL Normal 4.04-6.13 [facility] ([place]) Comment on above: Performed By: #### C ARDIM, ANEU, ADIFF, CARDIG, CBC, CARDIA #### [address] [address] WBC 5.3 10 3/mcL Normal 4.6-10.8 [facility] ([place]) Comment on above: Performed By: #### C ARDIM, ANEU, ADIFF, CARDIG, CBC, CARDIA #### [address] [address] Throat specimen bacteria harry ntification by cultureOrdered By: Roya Patel on 01-10-2023 Bacteria identified Cx Nom (Throat) streptococcus isolated. [facility] MISCon 11-15-2022 Misc. Send Out See Comments Normal [facility] ([place]) Comment on above: Result Comment: Comp lete reference lab report scanned to EMR. Performed By: #### C ARDIM, ANEU, ADIFF, CARDIG, CBC, CARDIA #### [address] [address] .Auto Diffon 11-06-2022 Basophil, Absolute 0.1 10 3/mcL Normal 0.0-0.2 [facility] ([place]) Comment on above: Performed By: #### U BEBE, ADIFF, MISC, GFR, ANEU, CBC, CMP #### [address] [address] Basophils/100 WBC (Bld) 0.8 % Normal 0.0-2.5 [facility] ([place]) Comment on above: Performed By: #### U BEBE, ADIFF, MISC, GFR, ANEU, CBC, CMP #### [address] [address] Eosinophil, Absolute 0.3 10 3/mcL Normal 0.0-0.4 [facility] ([place]) Comment on above: Performed By: #### U BEBE, ADIFF, MISC, GFR, ANEU, CBC, CMP #### [address] [address] Eosinophils/100 WBC (Bld) 4.6 % Normal 0.0-7.0 [facility] ([place]) Comment on above: Performed By: #### U BEBE, ADIFF, MISC, GFR, ANEU, CBC, CMP #### [address] [address] Lymphocyte, Absolute 1.3 10 3/mcL Normal 0.8-3.9 [facility] ([place]) Comment on above: Performed By: #### U BEBE, ADIFF, MISC, GFR, ANEU, CBC, CMP #### [address] [address] Lymphocytes/100 WBC (Bld) 18.5 % Normal 10.0-50.0 [facility] ([place]) Comment on above: Performed By: #### U BEBE, ADIFF, MISC, GFR, ANEU, CBC, CMP #### [address] [address] Monocyte, Absolute 0.9 10 3/mcL Normal 0.2-1.0 [facility] ([place]) Comment on above: Performed By: #### U BEBE, ADIFF, MISC, GFR, ANEU, CBC, CMP #### [address] [address] Monocytes/100 WBC (Bld) 12.5 % Normal 1.7-13.0 [facility] ([place]) Comment on above: Performed By: #### U BEBE, ADIFF, MISC, GFR, ANEU, CBC, CMP #### [address] [address] Neutrophils/100 WBC (Bld) 63.6 % Normal 37.0-80.0 [facility] ([place]) Comment on above: Performed By: #### U BEBE, ADIFF, MISC, GFR, ANEU, CBC, CMP #### [address] [address] .GFRon 11-06-2022 GFR 87 ml/min/1.73sqm Normal [facility] ([place]) Comment on above: Result Comment: GFR Population [...] ARDIM, ANEU, ADIFF, CARDIG, CBC, CARDIA #### [address] [address] GFR Non- 72 ml/min/1.73sqm Normal [facility] ([place]) Comment on above: Result Comment: GFR Population [...] ARDIM, ANEU, ADIFF, CARDIG, CBC, CARDIA #### [address] [address] .NEUABSon 11-06-2022 Neutrophil, Absolute 4.3 10 3/mcL Normal 2.9-6.2 [facility] ([place]) Comment on above: Performed By: #### U BEBE, ADIFF, MISC, GFR, ANEU, CBC, CMP #### [address] [address] CBCon 11-06-2022 Erythrocyte distribution width (RBC) [Ratio] 15.1 % High 11.5-14.5 [facility] ([place]) Comment on above: Performed By: #### U BEBE, ADIFF, MISC, GFR, ANEU, CBC, CMP #### [address] [address] Hematocrit (Bld) [Volume fraction] 44.4 % Normal 42.0-52.0 [facility] ([place]) Comment on above: Performed By: #### U BEBE, ADIFF, MISC, GFR, ANEU, CBC, CMP #### [address] [address] Hgb 15.0 G/dL Normal 14.0-18.0 [facility] ([place]) Comment on above: Performed By: #### U BEBE, ADIFF, MISC, GFR, ANEU, CBC, CMP #### [place] [address] MCH (RBC) [Entitic mass] 30.5 pg Normal 27.0-31.2 [facility] ([place]) Comment on above: Performed By: #### U BEBE, ADIFF, MISC, GFR, ANEU, CBC, CMP #### [place] [address] MCHC 33.8 G/dL Normal 31.8-35.4 [facility] ([place]) Comment on above: Performed By: #### U BEBE, ADIFF, MISC, GFR, ANEU, CBC, CMP #### [address] [address] MCV (RBC) [Entitic vol] 90.3 fL Normal 80.0-94.0 [facility] ([place]) Comment on above: Performed By: #### U BEBE, ADIFF, MISC, GFR, ANEU, CBC, CMP #### [address] [address] Platelet 193 10 3/mcL Normal 130-400 [facility] ([place]) Comment on above: Performed By: #### U BEBE, ADIFF, MISC, GFR, ANEU, CBC, CMP #### [address] [address] Platelet mean volume (Bld) [Entitic vol] 8.6 fL Normal 7.4-10.4 [facility] ([place]) Comment on above: Performed By: #### U BEBE, ADIFF, MISC, GFR, ANEU, CBC, CMP #### [address] [address] RBC 4.92 10 6/mcL Normal 4.04-6.13 [facility] ([place]) Comment on above: Performed By: #### U BEBE, ADIFF, MISC, GFR, ANEU, CBC, CMP #### [address] [address] WBC 6.8 10 3/mcL Normal 4.6-10.8 [facility] ([place]) Comment on above: Performed By: #### U BEBE, ADIFF, MISC, GFR, ANEU, CBC, CMP #### [address] [address] CMPon 11-06-2022 Albumin Level 4.1 G/dL Normal 3.4-4.8 [facility]) Comment on above: Performed By: #### C ARDIM, ANEU, ADIFF, CARDIG, CBC, CARDIA #### [address] [address] Albumin/Globulin [Mass ratio] 1.3 {ratio} Normal 1.1-2.5 [facility] ([place]) Comment on above: Performed By: #### C ARDIM, ANEU, ADIFF, CARDIG, CBC, CARDIA #### [address] [address] ALP [Catalytic activity/Vol] 116 U/L Normal 40-135 [facility] ([place]) Comment on above: Performed By: #### C ARDIM, ANEU, ADIFF, CARDIG, CBC, CARDIA #### [address] [address] ALT [Catalytic activity/Vol] 34 U/L Normal 16-63 [facility] ([place]) Comment on above: Performed By: #### C ARDIM, ANEU, ADIFF, CARDIG, CBC, CARDIA #### [address] [address] AST [Catalytic activity/Vol] 30 U/L Normal 10-40 [facility] ([place]) Comment on above: Performed By: #### C ARDIM, ANEU, ADIFF, CARDIG, CBC, CARDIA #### [address] [address] Bili Total 0.8 mg/dL Normal 0.2-1.0 [facility] ([place]) Comment on above: Result Comment: Use of this assay is not recommended for patients undergoing treatment with eltrombopag due to the potential for falsely elevated results. Performed By: #### C ARDIM, ANEU, ADIFF, CARDIG, CBC, CARDIA #### [address] [address] BUN/Creatinine Ratio 22 ratio Normal 7-27 [facility] ([place]) Comment on above: Performed By: #### C ARDIM, ANEU, ADIFF, CARDIG, CBC, CARDIA #### [address] [address] Calcium [Mass/Vol] 9.7 mg/dL Normal 8.4-10.2 [facility] ([place]) Comment on above: Performed By: #### C ARDIM, ANEU, ADIFF, CARDIG, CBC, CARDIA #### [address] [address] Chloride [Moles/Vol] 104 mmol/L Normal 98-107 [facility] ([place]) Comment on above: Performed By: #### C ARDIM, ANEU, ADIFF, CARDIG, CBC, CARDIA #### [address] [address] CO2 [Moles/Vol] 26 mmol/L Normal 23-31 [facility] ([place]) Comment on above: Performed By: #### C ARDIM, ANEU, ADIFF, CARDIG, CBC, CARDIA #### [address] [address] Creatinine [Mass/Vol] 1.03 mg/dL Normal 0.70-1.30 [facility] ([place]) Comment on above: Performed By: #### C ARDIM, ANEU, ADIFF, CARDIG, CBC, CARDIA #### [address] [address] Electrolyte Balance 13.0 mEq/L Normal 4.0-15.0 [facility] ([place]) Comment on above: Performed By: #### C ARDIM, ANEU, ADIFF, CARDIG, CBC, CARDIA #### [address] [address] Globulin 3.2 G/dL Normal [facility] ([place]) Comment on above: Performed By: #### C ARDIM, ANEU, ADIFF, CARDIG, CBC, CARDIA #### [address] [address] Glucose [Mass/Vol] 85 mg/dL Normal 80-115 [facility] ([place]) Comment on above: Performed By: #### C ARDIM, ANEU, ADIFF, CARDIG, CBC, CARDIA #### [address] [address] Potassium [Moles/Vol] 4.6 mmol/L Normal 3.5-5.1 [facility] ([place]) Comment on above: Performed By: #### C ARDIM, ANEU, ADIFF, CARDIG, CBC, CARDIA #### [address] [address] Sodium [Moles/Vol] 143 mmol/L Normal 136-145 [facility] ([place]) Comment on above: Performed By: #### C ARDIM, ANEU, ADIFF, CARDIG, CBC, CARDIA #### [address] [address] Total Protein 7.3 G/dL Normal 6.4-8.2 [facility] ([place]) Comment on above: Performed By: #### C ARDIM, ANEU, ADIFF, CARDIG, CBC, CARDIA #### [address] [address] Urea nitrogen [Mass/Vol] 23 mg/dL High 7-18 [facility] ([place]) Comment on above: Performed By: #### C ARDIM, ANEU, ADIFF, CARDIG, CBC, CARDIA #### [place] [address] [place] [address] LABORATORYOrdered By: SYSTEM SYSTEM on 11-06-2022 Albumin [...] Uric Acid Lvl 5.2 mg/dL Normal 3.5-7.2 [facility] ([place]) Comment on above: Performed By: #### U BEBE, ADIFF, MISC, GFR, ANEU, CBC, CMP #### [place] [address] [place], [place] [address] Basophil percentageon 2021 Bilirubin [Mass/Vol] 1.00 mg/dL 0.20-1.00 [facility] Work Phone: Comment on above: For patients on eltr ombopag therapy, use of Dimension Shelly TBIL is not recommended. Chloride [Moles/Vol] 103 mmol/L 98-107 [facility] Work Phone: Glucose [Mass/Vol] 78 mg/dL 74-106 [facility] Work Phone: Potassium [Moles/Vol] 4.8 mmol/L 3.5-5.1 [facility] Work Phone: Protein [Mass/Vol] 7.7 g/dL 6.4-8.2 [facility] Work Phone: Sodium [Moles/Vol] 138 mmol/L 136-145 [facility] Work Phone: Laboratory - Chemistry and C hemistry - challengeon 08-20-2022 ALP [Catalytic activity/Vol] 119 U/L 45-117 [facility] Work Phone: ALT [Catalytic activity/Vol] 27 U/L 16-61 [facility] Work Phone: CO2 [Moles/Vol] 29.0 mmol/L 21.0-32.0 [facility] Work Phone: Globulin (S) [Mass/Vol] 3.7 g/dL 2.2-4.2 [facility] Work Phone: Urea nitrogen/Creatinine [Mass ratio] 18.8 mg/mg 10- [facility] Work Phone: No Panel Informationon 08-20 Estimated GFR (MDRD) Amer 100 mL/min >60 [facility] Work Phone: Comment on above: GFR Calc Estimated GFR (MDRD) Non-Af Amer 83 mL/min >60 [facility] Work Phone: Comment on above: Non- GFR Calc Miscellaneous Test See comment [facility] Work Phone: Comment on above: TEST RESULT LIMITSCa ndida Antibodies IgG,IgA,IgMCandida Antibodies IgG A, Positive Abnormal NegativeCandida Antibodies IgM A, Negative Negative Please note reference interval changeUmu Antibodies IgA A, Negative Negative Please note reference interval changeA: Results of this test are labeled for research purposes only by the assay's mechanical service representative. The performance characteristics of this assay have not beenestablished by the mechanical service representative. The result should not be used for treatment or for diagnostic purposes without confirmation of the diagnosis by anothermedically established diagnostic product or procedure. The performance characteristics were determined by [employer]. __ TESTING PERFORMED AT [facility]. ORIGINAL REPORT ON FILE IN LAB CONTAINS ADDITIONAL TEST SITE INFORMATION. Serum or plasma albumin merrill urement (mass/volume)on 08-20-2022 Albumin [Mass/Vol] 4.0 g/dL 3.2-5.0 [facility] Work Phone: Serum or plasma albumin/glob ulin mass ratioon 08-20-2022 Albumin/Globulin [Mass ratio] 1.1 {ratio} 0.9-2.4 [facility] Work Phone: Serum or plasma calcium merrill urement (mass/volume)on 08-20-2022 Calcium [Mass/Vol] 9.6 mg/dL 8.5-10.1 [facility] Work Phone: Serum or plasma creatinine m easurement (mass/volume)on 08-20-2022 Creatinine [Mass/Vol] 0.96 mg/dL 0.70-1.30 [facility] Work Phone: Comment on above: The validity of the calculated GFR & GFRAA in patients over 70 years has not been determined. Clinical correlation is essential. Serum or plasma urea nitroge n measurement (mass/volume)on 08-20-2022 Urea nitrogen [Mass/Vol] 18 mg/dL 7-18 [facility] Work Phone: Thin prep Papanicolaou smear with manual screeningon 08-20-2022 Thin prep Papanicolaou smear with manual screening 21 U/L 15-37 [facility] Work Phone: Thin prep Papanicolaou smear with manual screening 6 5-15 [facility] Work Phone: CNOVon 05-15-2021 CNOV Office Visit (GSTNOR ) DANIEL CHAND ([id number]) 1955 M EXC Date Time Provider Department [...] of active drainage, anal fissures, external hemorrhoids. Marketing Automation Specialist: Smiley Rincon MA Musculoskeletal: General: Normal range [...] capsule; R (more content not included)... Normal [facility] 04-12-2021 CNPN Telephone (GENFarmetoE) DANIEL CHAND ([id number]) 1955 M EXC Date Time Provider Department 04/12/21 GAEL MOTT During your visit today, we recorded the following information about you: Jena Garcia [facility] 04/12/2021 10:04 AM Signed Patient is being referred to Gastroenterology for diarrhea and lymphocytic colitits found on recent colonsocopy. Appointment was made for May 15 at 10:00 with the PAKeila. Patient has been notified and appointment reminder mailed as patient does not have mychart. Thank you Jena Radha [facility] Allergies As of Date: 04/12/2021 Noted Allergy Reaction SEASONAL ALLERGIES 06/02/2012 14 - Other: See Comments Comments: Upper Respiratory Symptoms, congestion and headaches; weekly allergy shots shrimp [Other] 08/28/2010 11 - Vomiting Date Reviewed: 04/11/2021 Reviewed by: Ruth Linder PA-C - Fully Assessed Reason for Visit: Other [facility] Referral [[id number]] Cmt: to Gastroeneterology Prescriptions as of 04/12/2021 Sig: COLLAGEN MISC MUPIROCIN 2 % TOPICAL OINTMENT Apply 1 application to affect* COD LIVER OIL ORAL Take by mouth once daily. * BEE POLLEN ORAL Take by mouth. * CITRACAL + D ORAL Take by mouth. Problem List As Of Date 04/12/2021 Noted Resolved Special Screening for Malignant Neoplasms, [place]*09/08/2009 Family history of colon cancer [Z80.0] 09/08/2009 03/30/2021 Benign Neoplasm of Colon [D12.6] 09/08/2009 Rotator cuff (capsule) sprain and strain [S43.4*09/20/2010 Biceps tendon rupture [S46.219A] 06/02/2012 Diarrhea [R19.7] 03/30/2021 03/30/2021 Change in bowel habit [R19.4] 03/30/2021 03/30/2021 Personal history of colonic polyps [Z86.010] 03/30/2021 Encounter Status:Closed by JENA SYED on 04/12/21 [facility] CNOVon 04-11-2021 CNOV Office Visit (GENSWS ) DANIEL CHAND ([id number]) 1955 M EXC Date Time Provider Department 04/11/21 10:00 AM [...] - ENDOSCOPY NAME: Daniel Chand CLINIC NO.: [id number] DATE OF SERVICE: 04/11/2021 : 1955 REFERRING PHYSICIAN: MD Daniel Trujillo is a patient I am following with [...] with more than 50% of the total eglm-ox-dqzi time of the visit in counseling / coordination of care. Ruth Linder PA-C Referring Provider: SELF [200] Allergies As of Date: 04/11/2021 Noted Allergy Reaction SEASONAL ALLERGIES 06/02/2012 14 - Other: See Comments Comments: Upper Respiratory Symptoms, congestion and headaches; weekly allergy shots shrimp [Other] 08/28/2010 11 - Vomiting Date Revi (more content not included)... Normal [facility] HISTORY PHYSICALon HISTORY PHYSICAL HNO ID: [id number] Author: Gael Mott MD Service: General Surgery [...] March 30, 2021 TIME: 9:30 AM Normal [facility] NURSING PROGon 03-30-2021 NURSING PROG HNO ID: [id number] Author: Lauren Caruso RN Service: Nursing Author Type: Registered Nurse Type: Nursing Progress Note Filed: 03/30/2021 10:49 AM Note Text: Pt into Endo recovery room in satisfactory condition. Resting on left side. Pt. sleepy but arousable. Abdomen soft, no complaints. Will continue to monitor. Normal [facility] NURSING PROG HNO ID: [id number] Author: Cindy Lawrence RN Service: ? Author Type: Registered Nurse Type: Nursing Progress Note Filed: 03/30/2021 10:16 AM Note Text: [facility] PRE-OP NURSING HAND OFF NOTE SBAR Hand off given to Emily Houston RN. Hand off was communicated verbally and at the patient's bedside and all questions were answered. Cindy Lawrence RN Normal [facility] SURGICAL PATHOLOGYon 021 SURGICAL PATHOLOGY Specimen originated from [facility] Specimen #: [id number] Submitting Physician: GAEL MOTT ([id number]) FINAL DIAGNOSIS [...] in one cassette. Gross examination performed at [facility], [address] [place] [address] 03/30/2021 8:59:46 PM Date of Report: 04/01/2021 Date of Procedure: 03/30/2021 Date of Receipt: 03/30/2021 Submitted by: GAEL MOTT ([id number]) Location: [facility] Diagnostic interpretation performed at [place] [address]. [place] Number: [id number] Normal [facility] CNOVon 03-15-2021 CNOV Office Visit (SWS ) DANIEL CHAND ([id number]) 1955 M EXC Date Time Provider Department 03/15/21 8:00 AM RUTH LINDER During your visit today, we recorded the following information about you: Temperature Pulse Blood pressure Weight 97.4 degrees 67/minute 104/62 77.6 kg Height 1.803 m Stefany Benavidez [employer]ER 03/15/2021 8:12 AM Signed REVIEW OF SYSTEMS: [...] ointment Apply (more content not included)... Normal [facility] Marilou 03-15-2021 CNPN Telephone (GENTransaqS) MANNIEDANIEL Hinojosa ([id number]) 1955 M EXC Date Time Provider Department 03/15/21 GAEL MOTT [employer] During your visit today, we recorded the following information about you: Carmen Randolph 03/15/2021 10:22 AM Signed WSTR [...] physical limitations: No Any cognitive limitations: No Research Greenhouse Supervisor/Translato r required: No Communication Limitations: No Allergies [...] Noted Resolved Special Screening for Malignant Neoplasms, [place]*09/08/2009 Family History of Malignant Neoplasm of Gastroi*09/08/2009 Benign Neoplasm of Colon [D12.6] 09/08/2009 Rotator cuff (capsule) sprain and strain [S43.4*09/20/2010 Biceps tendon rupture [S46.219A] 06/02/2012 Encounter Status:Closed by CARMEN RANDOLPH on 04/12/21 [facility] 03-15-2021 [facility] Patient:Daniel Chand MRN: Height:5' 11(1.803 m) Weight:171 [...] for the following basenames: K,HCT Progress Notes ([facility] WSTR): Carmen Randolph 03/15/2021 10:22 AM Signed WSTR [...] physical limitations: No Any cognitive limitations: No Research Greenhouse Supervisor/Translato r required: No Communication Limitations: No Progress Notes ([facility] WSTR): Stefany Benavidez KYLIE 03/15/2021 8:12 AM Signed REVIEW OF SYSTEMS: [...] PCP outside (more content not included)... Normal [facility] Vital Signs Date Time Vital Sign Value Performing Clinician Isaiah mir 02-01-2025 08:59-0400 Body height 182.[address] Nicole Echeverria DO Work Phone: [facility] 02-01-2025 08:59-0400 Body mass index (BMI) [Ratio] 23.3 kg/m2 Dr. Nicole Echeverria DO Work Phone: [facility] 02-01-2025 08:59-0400 Body weight 78.[address] Nicole Echeverria DO Work Phone: [facility] 04-17-2023 09:59-0400 Body height 182.[address] Mare Castellano Work Phone: [facility] 04-17-2023 09:59-0400 Body mass index (BMI) [Ratio] 23.8 kg/m2 Dr. Mare Castellano Work Phone: [facility] 04-17-2023 09:59-0400 Body weight 79.[address] Mare Castellano Work Phone: [facility] 04-17-2023 09:59-0400 Diastolic blood pressure 54 mm[Hg] Dr. Mare Castellano Work Phone: [facility] 04-17-2023 09:59-0400 Heart rate 52 /min Dr. Mare Castellano Work Phone: [facility] 04-17-2023 09:59-0400 Respiratory rate 16 /min Dr. Mare Castellano Work Phone: [facility] 04-17-2023 09:59-0400 Systolic blood pressure 99 mm[Hg] Dr. Mare Castellano Work Phone: [facility] Encounters Encounter Date Encounter Type Care Provider Facility Start: 05-11-[address] Kumar Israel MD -Radiology [place] Work Phone: Start: 05-08-2025 [facility] Start: 05-05-2025 End: 05-05-[address] Kumar Israel MD -Laboratory Work Phone: Start: 05-05-2025 End: 05-05-2025 ambulatory Kumar Israel Facility:[facility] Start: 03-23-2025 End: 03-23-[address] Nicole Echeverria DO Work Phone: [facility] Work Phone: Start: 03-23-2025 End: 03-23-[address] Kumar Israel MD -Laboratory [place] Work Phone: Start: 03-23-2025 End: 03-23-[address] Dru Wilson MD -[facility] Work Phone: Start: 03-23-2025 End: 03-23-[address] Nicole Echeverria DO Work Phone: [facility] Work Phone: Start: 03-23-2025 End: 03-23-2025 ambulatory Kumar Israel Facility:[facility] Start: 03-16-2025 End: 03-16-[address] Nicole Echeverria DO -Cat Scan [facility] Work Phone: Start: 03-16-2025 End: 03-16-2025 ambulatory Nicole Echeverria Facility:[facility] Start: 03-09-2025 End: 03-09-2025 ambulatory Dr. Nicole Echeverria DO Work Phone: [facility] Work Phone: Start: 03-09-2025 End: 03-09-[address] Dru Wilson MD [facility] Work Phone: Start: 03-09-2025 End: 03-09-2025 ambulatory Nicole Echeverria Facility:[facility] Start: 02-01-2025 End: 02-01-[address] Dru Wilson MD -[facility] Work Phone: Start: 02-01-2025 End: 02-01-2025 ambulatory Nicole Echeverria Facility:[facility] [place] Start: 01-01-2025 End: 01-01-[address] Nicole Echeverria DO Work Phone: [facility] Work Phone: Start: 01-01-2025 End: 01-01-[address] Jerrod Swain MD -Laboratory, Specimen Work Phone: Start: 01-01-2025 End: 01-01-2025 ambulatory Nicole Echeverria Facility:[facility] Start: 12-25-2024 End: 12-25-[address] Nicole Echeverria DO Work Phone: [facility] Work Phone: Start: 12-25-2024 End: 12-25-[address] Nicole Echeverria DO -Cat Scan, [facility] Work Phone: Start: 12-25-2024 End: 12-25-2024 ambulatory Nicole Echeverria Facility:[facility] Start: 02-11-2024 End: 02-11-2024 ambulatory [facility] Work Phone: Start: 02-11-2024 End: 02-11-2024 Patient encounter procedure [facility]-Laboratory, Specimen Work Phone: Start: 05-10-2023 Non-patient / Non-visit Dr. Mare Castellano Work Phone: [facility] Start: 05-10-2023 End: 05-10-[address] Mare Castellano Work Phone: [facility] Work Phone: Start: 05-10-2023 End: 05-10-[address] Mare Castellano Work Phone: [facility]-Cardiovascul[facility] Services Work Phone: Start: 04-17-2023 End: 04-17-[address] Mare Castellano Work Phone: [facility] Work Phone: Start: 04-17-2023 End: 04-17-[address] Mare Castellano Work Phone: [facility]-Laboratory Start: 04-17-2023 End: 04-17-[address] Mare Castellano Work Phone: [facility] Start: 2023 End: 03-20-[address] MIREILLE DONIS MD Facility:[facility] Start: 03-14-2023 End: 03-15-[address] MIREILLE DONIS MD Facility:[facility] Start: 01-07-2023 End: 01-07-[address] Mare Castellano Work Phone: [facility]-Laboratory, Specimen Start: 11-06-2022 End: 11-07-2022 ambulatory JULISA GARCIA GEODESIST Facility:[facility] Start: 11-06-2022 End: 11-06-2022 Patient encounter procedure JULISA Chato KENDALJOSE ARMANDO GEODESIST [facility] Start: 08-20-2022 End: 08-20-2022 ambulatory [facility] Work Phone: Start: 08-20-2022 End: 08-20-2022 Patient encounter procedure [facility] [place] Start: 08-07-2022 End: 08-07-2022 ambulatory [facility] Work Phone: Start: 08-07-2022 End: 08-07-2022 Discharged Recurring [facility]-Physical Therapy Start: 08-07-2022 Registered Recurring [facility] Start: 12-19-2021 End: 12-19-2021 Discharged Recurring [facility] Therapy Procedures Date Procedure Procedure Detail Performing Clinician Start: 05-05-[address] Nicole Echeverria DO Work Phone: Start: 03-23-[address] Nicole [...] Treatment Date Care Activity Detail Author Start: 05-11-2025 X-ray of chest, PA a nd lateral views Chest PA and Lateral [facility] Start: 05-11-2025 XR Chest PA and Lateral [facility] Start: 02-01-[address] [facility] Work Phone: Start: 08-20-2022 Procedure [facility] Work Phone: 24 Hour ECG [facility] Cardiovascular stres s testing [facility] Patient referral [facility] Work Phone: Procedure [facility] Work Phone: US Heart [facility] Payers Date Payer Category Payer Self-pay [id number] 2022 Medicare [id number] 2022 Private Health Insurance [facility] [id number] 2014 Unknown [id number] 2012 Unknown [id number] 1955 Unknown [id number] 2.16.8 [id number] 1955 Unknown [id number] 2.16.8 [id number] 1955 Unknown [id number] 2.16.8 [id number] Unknown [id number] Unknown [id number] 2.16.8 [id number] Unknown [id number] 2.16.8 [id number] Unknown [id number] 2.16.8 [id number] Unknown [id number] 2.16.8 [id number] Unknown [id number] 2.16.8 [id number] Unknown [id number] 2.16.8 [id number] Unknown [id number] 2.16.8 [id number] Unknown [id number] 2.16.8 [id number] Unknown [id number] 2.16.8 [id number] Unknown [id number] 2.16.8 [id number] Social History Date Type Detail Facility Start: 11-25-2017 End: 04-17-2023 Tobacco smoking status MTIS Unknown if ever smoked [facility] Start: 1955 Sex Assigned At Male A [facility] Tobacco smoking status No Smokin g Status Entered [facility] Start: 04-17-2023 Tobacco smoking stat us NHIS Never smoked tobacco (finding) [facility] Start: 01-07-2025 End: 01-14-2025 Sex Male (finding) [facility] Clinical Notes 03-15-2021 to 02-01-2025 Note Date & Type Note Facility 02-01-2025 Evaluation note Diagnosis Onset Date Resolution Right hip pain acute February 01, 2025 8:59am Right shoulder pain acute February 01, 2025 8:59am S/P right rotator cuff repair acute February 01, 2025 8:59am [facility] Work Phone: 1(737) 147-446604-07-2025 Evaluation note* Diagnosis Onset Date Resolution Status Admit Date Right hip pain acute February 01, 2025 8:59am Right shoulder pain acute February 01, 2025 8:59am S/P right rotator cuff repair acute February 01, 2025 8:59am Right rotator cuff tear acute 2024 8:45am Right shoulder pain acute February 262024 8:45am [facility] Work Phone: 1(890) 233-391102-28-2025 Radiology Diagnostic study note [facility] Imaging Services [address] [place] [id number] Sinus/Facial Bone MR#: [id number] Acct: [id number] Name: DANIEL CHAND Rep #: [id number] : 1955 M 69 From: Drew Herndon MD PCP: Dr. Nicole Echeverria DO Status: RE G CLI Study:Sinus/Facial Bone Date of Exam: Exam# [id number] Ordering Dr: Marilyn Echeverria DO PROCEDURE: SINUS/FACIAL [...] use of iterative reconstruction technique). Reading Location: [id number] CC: Dr. Nicole Echeverria, DO ~ Refining Still Operator: Signed [facility]01-10-2023 Evaluation + Plan note Diagnostic Tests Pending * [facility] Lab Send out (Blood Specimens) 11/06/22 [facility] 07-19-2021 NoteHNO ID: [id number] Author: Keila Schulte PA-C Service: ? Author Type: Physician Cloth Presser Type: Progress Notes Filed: 05/15/2021 12:37 PM [...] of active drainage, anal fissures, external hemorrhoids. Marketing Automation Specialist: Smiley Rincon MA Musculoskeletal: General: Normal range [...] Start Entocort with tap (more content not included)...[facility]06-15-2021 NoteHNO ID: [id number] Author: Ruth Linder PA-C Service: ? Author Type: Physician Cloth Presser Type: Progress Notes Filed: 04/16/2021 9:48 PM Note Text: FOLLOW UP VISIT - ENDOSCOPY NAME: Daniel Chand [facility] NO.: [id number] DATE OF SERVICE: 04/11/2021 : 1955 REFERRING [...] above and agreed with the plan Diagnoses: (K51.882) Lymphocytic colitis (primary encounter diagnosis) I spent 31 minutes in the visit, with more than 50% of the total [id number] time of the visit in counseling / coordination of care. [facility] NoteHNO ID: [id number] Author: Ruth Linder PA-C Service: ? Author Type: Physician Cloth Presser Type: Progress Notes Filed: 03/15/2021 8:44 AM [...] entered by the nurse and reviewed by mn Nursing Notes: Stefany Benavidez LPN 03/15/2021 8:12 [...] thyroid disorders, denies diabetes, (more content not included)...[facility] noteNo assessment information availableWAd[facility] Work Phone: Evaluation note* Diagnosis Onset Date Resolution Status Arrhythmia acute [facility] Work Phone: Hospital course Narrative No data available for this section [facility] Discharge instructions No data available for this section [facility] Progress note No data available for this section [facility] Reason for referral (narrative)No reason for referral information availableWAdams County [facility] Work Phone: Summary Purpose Family History Relationship Condition Age at Onset Recorded Date/T rojas mother Cerebrovascular accident (CVA) Unknown brother Arthritis Unknown Relationship Condition Age at Onset Recorded Date/T rojas mother Cerebrovascular accident (CVA) Unknown brother Arthritis Unknown father Presence of cardiac pacemaker Unknown Advance Directives Advance Directive Response Recorded Date/ Time Advance Directives Yes November 18, 2015 2:53pm Living Will Yes November 18 2:53pm Power of Paper Products Machine Operator No November 18, 2015 2:53pm Advance Directive Response Recorded Date/ Time Advance Directives Yes November 18, 2015 1:53pm Living Will Yes November 18 1:53pm Power of Paper Products Machine Operator No November 18, 2015 1:53pm Advance Directive [...] shoulder pain March 23, 2025 8:45a m Chief Complaint Admit Date RIGHT SHOULDER February 01, 2025 8:59 am Room 3 February 01, 2025 9:07 am RIGHT SHOULDER PAIN March 09, 2025 10:35 am nonspecific abnormal finding of lung fie ld March 16, 2025 7:35am RIGHT SHOULDER March 23, 2025 8:45a m Additional Source Comments (unrecognized sect ion and content) No Status Records FoundNo Status Records FoundNo Status Records Found INFORMATION SOURCE (unrecogn ized section and content) DATE CREATED AUTHOR 12/01/2021 [facility] DATE CREATED AUTHOR AUTHOR'S ORGANIZ ATION 04/07/2023 [facility] ([place]) DATE CREATED AUTHOR AUTHOR'S ORGANIZ ATION 05/08/2025 [facility] Goals (unrecognized section and content) Goals may [...] 2025 End: March 23, 2025 Team Status: Active Member Role/Relationship Status Dates Dr. Nicole Echeverria DO Primary Care Provider Active Team Status: Inactive Member Role/Relationship Status Dates Dr. Nicole Echeverria DO Primary Care Provider Active Start: February 01, 2025 End: February 01, 2025 Dr. Nicole Echeverria DO Referring Provider Active Start: February 01, 2025 End: February 01, 2025 Dru Wilson MD Attending Provider Active St art: February 01, 2025 End: February 01, 2025 Team Status: Inactive Member Role/Relationship Status Dates Dr. Nicole Echeverria DO Primary Care Provider Active Start: February 01, 2025 End: February 01, 2025 Dr. Ghulam Rankin MD Attending Provider Active S tart: February 01, 2025 End: February 01, 2025 Team Status: Inactive Member Role/Relationship Status Dates Dr. Nicole Echeverria DO Primary Care Provider Active Start: March 09, 2025 End: March 09, 2025 Dru Wilson MD Attending Provider Active St art: March 09, 2025 End: March 09, 2025 Dru Wilson MD Referring Provider Active St art: March 09, 2025 End: March 09, 2025 Team Status: Inactive Member Role/Relationship Status Dates Dr. Nicole Echeverria DO Primary Care Provider Active Start: March 16, 2025 End: March 16, 2025 Dr. Nicole Echeverria DO Attending Provider Active Start: March 16, 2025 End: March 16, 2025 Dr. Nicole Echeverria DO Referring Provider Active Start: March 16, 2025 End: March 16, 2025 Team Status: Inactive Member Role/Relationship Status Dates Dr. Nicole Echeverria DO Primary Care Provider Active Start: March 23, 2025 End: March 23, 2025 Dr. Nicole Echeverria DO Referring Provider Active Start: March 23, 2025 End: March 23, 2025 Dru Wilson MD Attending Provider Active St art: March 23, 2025 End: March 23, 2025 Team Status: Inactive Member Role/Relationship Status Dates Dr. Nicole Echeverria DO Primary Care Provider Active Start: March 23, 2025 End: March 23, 2025 Dr. Kumar Israel MD Attending Provider Active Start: March 23, 2025 End: March 23, 2025 Dr. Kumar Israel MD Referring Provider Active Start: March 23, 2025 End: March 23, 2025 Team Status: Inactive Member Role/Relationship Status Dates Dr. Nicole Echeverria DO Primary Care Provider Active Start: May 05, 2025 End: May 05, 2025 Dr. Kumar Israel MD Attending Provider Active Start: May 05, 2025 End: May 05, 2025 Dr. Kumar Israel MD Referring Provider Active Start: May 05, 2025 End: May 05, 2025 Team Status: Active Member Role/Relationship Status Dates Dr. Nicole Echeverria DO Primary Care Provider Active Start: May 11, 2025 Dr. Kumar Israel MD Attending Provider Active Start: May 11, 2025 Dr. Kumar Israel MD Referring Provider Active Start: May 11, 2025 FOR RECORDS PERTAINING TO PATIENTS WHO [...] BE BASED ON THE PRIMARY CLINICAL RECORDS. [facility] [employer] [facility]. provides no warranty or guarantee of the accuracy or completeness of information in this document.
--- OUTSIDE RECORDS SUMMARY | 2025-05-11 20:58 | XMS RPT_ITS | CCD ---
Author Organization [facility] CliniSyny Care Team Providers Care Flight Operations Inspector Name Role Phone PHYSICIAN, NONE Primary Care [...] Jacki MALIK, Dr. Rivera Primary Care Provider [phone] Dr. Nicole Echeverria DO Attending Provider Dr. [...] Provider Dr. Nicole Echeverria DO Referring Provider [phone] Jacki MALIK, Dr. Rivera Attending Provider [phone] Allergies Allergy Classification Reported Allergen(s) Allergy Type Date of Onset Reaction(s) Facility (8 sources) shrimp allergenic extract Drug Allergy 8 [facility] (2 sources) ventin Allergy to substance 7 [facility] Work Phone: (10 sources) Desvenlafaxine Drug Allergy 2 [facility] (1 source) Desvenlafaxine Drug Allergy 5 [facility] Repository (1 source) Shrimp product Drug allergy (disorder) 3 [facility] Repository Medications Current Medications Medication Drug [...] sylvester on 05-05-2025 IgE 27 IU/mL 6-495 [facility] Comment on above: Performed at: [address] [id number] Director: Dontae Rehman PhD, Phone: [phone] at: [facility] [place] [id number] Director: Lorena Thurston MD, Phone: [phone] Serum or plasma IgA measurem ent (mass/volume)Ordered By: Kumar Israel on 05-05-2025 IgA [Mass/Vol] 274 mg/dL 61-437 [facility] Serum or plasma IgG measurem ent (mass/volume)Ordered By: Kumar Israel on 05-05-2025 IgG [Mass/Vol] 1102 mg/dL 603-1613 [facility] Immunoglobulins G/A/M/Robert IMMUNOGLOB A QN 321 mg/dL Normal 61-437 [facility] Comment on above: Order Comment: N Performed By: #### L 3200.1100 #### [facility] [address] [place], [place], [id number] IMMUNOGLOB E QN 27 IU/mL Normal 6-495 [facility] Comment on above: Order Comment: N Result Comment: Perf ormed at: - [facility] [id number] Electron Tube Assembler: Dontae Rehman PhD, Phone: [phone] Performed at: [facility] [id number] Electron Tube Assembler: Lorena Thurston MD, Phone: [phone] Performed By: #### L 3200.1100 #### [facility] [address] [place], [place], [address] IMMUNOGLOB G QN 1199 mg/dL Normal 603-1613 [facility] Comment on above: Order Comment: N Performed By: #### L 3200.1100 #### [facility] [address] [place], [place], [id number] (280) IMMUNOGLOB M QN 107 mg/dL Normal 15-143 [facility] Comment on above: Order Comment: N Performed By: #### L 3200.1100 #### [facility] [address] [place], [place], [address] IgEOrdered By: Kumar sylvester on 03-23-2025 IgE 27 IU/mL 6-495 [facility] Comment on above: Performed at: CB - [facility] [id number] [place], [place] [id number] Director: Dontae Rehman PhD, Phone: [phone] at: BN - [facility] [address] [id number] Director: Lorena Thurston MD, Phone: [phone] Orthopedic Visit Reporton Orthopedic Visit Report [facility] [address] [place] [address] OFFICE VISIT Date of Service: 03/23/25 MR#: [id number] Acct: [id number] Name: DANIEL CHAND Rep #: [id number] : 1955 Provider: Dr. Dru worthy MD Age/Sex: 70/M Location[place] [facility] Status: Signed Intake Vital Signs 02/01/25 08:59 Height 6 ft Weight: 172 lb 4 oz BMI 23.3 Intake Visit Reasons: RIGHT SHOULDER Accompanied by: Self Is patient in pain?: Yes Allergies desvenlafaxine Allergy (Mild, Verified 03/23/25 08:50) Hives Have you fallen in the past year?: No [facility] Medical History (Updated 03/23/25 @ 09:08 by rDu Wilson MD) Right rotator cuff tear Right [...] that does cause some pain. Supplemental Info [facility] Imaging Services [address] [place] [address] Upper Ext Joint Only(Routine) MR#: [id number] Acct: [id number] Name: DANIEL CHAND Rep #: [id number] : 1955 M 69 From: Everton Stewart MD PCP: Dr. Nicole Echeverria, Status: REG CLI Study: Upper Ext Joint Only(Routine) Date of Exam: 03/09/25 Exam# [id number] Ordering Dr: Dru Wilson MD PROCEDURE: UPPER [...] and Plan (more content not included)... Normal [facility] Serum or plasma IgA measurem ent (mass/volume)Ordered By: Kumar Israel on 03-23-2025 IgA [Mass/Vol] 321 mg/dL 61-437 [facility] Serum or plasma IgG measurem ent (mass/volume)Ordered By: Kumar Israel on 03-23-2025 IgG [Mass/Vol] 1199 mg/dL 603-1613 [facility] Chest WITH Contraston 2024 Chest WITH Contrast [facility] [address] [place] [id number] Chest WITH Contrast MR#: [id number] Acct: [id number] Name: DANIEL CHAND Rep #: [id number] : 1955 M 69 From: Rajesh avalos MD PCP: Dr. Nicole Echeverria, Status: REG CLI Study: Chest WITH Contrast Date of Exam: 03/16/25 Exam# [id number] Ordering Dr: Nicole Echeverria DO PROCEDURE: CHEST [...] lobe. Radiographic follow-up is recommended. Reading Location: [place] [address] CC: Dr. Nicole Echeverria DO Salesperson Shoes: Signed Normal [facility] Magnetic resonance imaging r eportOrdered By: Everton Stewart on 03-10-2025 Study report [facility] [address] [place], [place] [id number] Upper Ext Joint Only(Routine) MR#: [id number] Acct: [id number] Name: DANIEL CHAND Rep #: [id number] : 1955 M 69 From: Jeffrey Stewart MD PCP: Dr. Nicole Echeverria DO Status: RE G CLI Study:Upper Ext Joint Only(Routine) Date of Exam: 03/09/25 Exam# [id number] Ordering Dr: Dru Wilson MD PROCEDURE: UPPER [...] Echeverria DO; Dr. Dru Wilson MD ~ Salesperson Shoes: Signed [facility] Upper Ext Joint Only(Routine )on 03-09-2025 Upper Ext Joint Only(Routine) [facility] [address] [place], [place] [id number] Upper Ext Joint Only(Routine) MR#: [id number] Acct: [id number] Name: DANIEL CHAND Rep #: [id number] : 1955 M 69 From: Everton Stewart MD PCP: Dr. Nicole Echeverria DO Status: REG CLI Study: Upper Ext Joint Only(Routine) Date of Exam: 0 03/09/25 Exam# [id number] Ordering Dr: Dru Wilson MD PROCEDURE: UPPER [...] Nicole Echeverria DO; Dr. Dru Wilson MD Salesperson Shoes: Signed Normal [facility] HIP, UNI W/ Pelvis 2-3 Views on 02-01-2025 HIP, UNI W/ Pelvis 2-3 Views [facility] [address] [place] [address] HIP, UNI W/ Pelvis 2-3 Views MR#: [id number] Acct: [id number] Name: DANIEL CHAND Rep #: [id number] : 1955 M 69 From: Ranjith Briceno i, DO PCP: Dr. Nicole Echeverria DO Status: DEP AMB Study: HIP, UNI W/ Pelvis 2-3 Views Date of Exam: 05/21 Exam# [id number] Ordering Dr: Dru Wilson MD PROCEDURE: Pelvis [...] Nicole Echeverria DO; Dr. Dru Wilson MD Salesperson Shoes: Signed Normal [facility] Orthopedic Visit Reporton Orthopedic Visit Report [facility] [address] [place] [address] OFFICE VISIT Date of Service: 02/01/25 MR#: [id number] Acct: [id number] Name: DANIEL CHANDICK Rep #: [id number] : 1955 Provider: Dr. Dru worthy MD Age/Sex: 69/M Location[place] [facility] [place] Status: Signed Intake Vital Signs [...] repair [address] Shah [facility]. Has been doing well since then. Has [...] to relax (more content not included)... Normal [facility] Shoulder min 2 Viewson 02-01 Shoulder min 2 Views [facility] [address] [place] [address] Shoulder min 2 Views MR#: [id number] Acct: [id number] Name: DANIEL CHAND Rep #: [id number] : 1955 M 69 From: Ranjith Briceno i DO PCP: Dr. Nicole Echeverria, Status: DEP AMB Study: Shoulder min 2 Views Date of Exam: 02/01/25 Exam# [id number] Ordering Dr: Dru Wilson MD PROCEDURE: Right [...] Eastern standard time on 02/01/2025. [facility] CC: Dr. Nicole Echeverria DO; Dr. Dru Wilson MD Salesperson Shoes: Signed Normal [facility] Nasopharyngeal Cultureon NAC Acinetobacter baumannii Amount [...] S Vancomycin Islt GARCIA 1 S Normal [facility] Comment on above: Performed By: #### M 100.2500, M100.1999 #### [facility] [address] [place], [place], [address] Gram Stainon 01-02-2025 GS Positive Normal [facility] Comment on above: Performed By: #### M 100.2500, M100.1999 #### [facility] [address] [place], [place], [id number] Gram stainOrdered By: Fer Swain on 01-01-2025 Microscopic observation Gram stain Nom (Unsp spec) [facility] Nasopharyngeal cultureOrdere d By: Jerrod Swain on 01-01-2025 Nasopharyngeal Culture Acinetobacter baumannii Abnormal [facility] Nasopharyngeal Culture Staphylococcus aureus Abnormal [facility] Sinus/Facial Boneon 12-25-19 Sinus/Facial Bone [facility] [address] [place], [place] [address] Sinus/Facial Bone MR#: [id number] Acct: [id number] Name: DANIEL CHAND Rep #: [id number] : 1955 M 69 From: Rajesh avalos MD PCP: Dr. Nicole Echeverria DO Status: REG CLI Study: Sinus/Facial Bone Date of Exam: 12/25/24 Exam# [id number] Ordering Dr: Nicole Echeverria DO PROCEDURE: SINUS/FACIAL [...] use of iterative reconstruction technique). Reading Location: [id number] CC: Dr. Nicole Echeverria DO Salesperson Shoes: Signed Normal [facility] Gram stain for investigation of transfusion reactionOrdered By: Rory Hines on 02-11-2024 Microscopic observation Gram stain Nom (Unsp spec) [facility] No Panel InformationOrdered By: Rory Hines on 02-11-2024 Nasopharyngeal Culture No growth in 48 hours. [facility] Absolute lymphocyte countOrd ered By: Dr. Rankin on 04-17-2023 Lymphocytes Auto (Unsp spec) [#/Vol] 1.59 10*3/uL 0.83-4.51 [facility] Basophil percentageOrdered B y: Dr. Rankin on 04-17-2023 Basophils/100 WBC (Bld) 0.7 % 0-1 [facility] Chloride [Moles/Vol] 108 mmol/L 98-107 [facility] Eosinophils/100 WBC (Bld) 5.5 % 0-5 [facility] Glucose [Mass/Vol] 91 mg/dL 74-106 [facility] Neutrophils (Bld) [#/Vol] 2.9 10*3/uL 2.0-7.7 [facility] Neutrophils/100 WBC (Bld) 52.4 % 47-70 [facility] Potassium [Moles/Vol] 4.5 mmol/L 3.5-5.1 [facility] Sodium [Moles/Vol] 138 mmol/L 136-145 [facility] WBC (Bld) [#/Vol] 5.5 10*3/uL 4.4-11.0 [facility] Blood erythrocytes count (nu mber/volume)Ordered By: Dr. Rankin on 04-17-2023 RBC (Bld) [#/Vol] 5.29 10*6/uL 4.6-6.2 [facility] Blood hemoglobin measurement (mass/volume)Ordered By: Dr. Rankin on 04-17-2023 Hemoglobin (Bld) [Mass/Vol] 16.0 g/dL 13.0-16.5 [facility] Blood lymphocytes/100 leukoc ytesOrdered By: Dr. Rankin on 04-17-2023 Lymphocytes/100 WBC (Bld) 29.1 % 19-41 [facility] Blood monocytes/100 leukocyt esOrdered By: Dr. Rankin on 04-17-2023 Monocytes/100 WBC (Bld) 12.1 % 0-10 [facility] Blood platelet mean volumeOr dered By: Dr. Rankin on 04-17-2023 Platelet mean volume (Bld) [Entitic vol] 10.2 fL 6.2-12.0 [facility] Determination of erythrocyte mean corpuscular volume (MCV)Ordered By: Dr. Rankin on 04-17-2023 MCV (RBC) [Entitic vol] 91.5 fL 80-94 [facility] Hematocrit Auto (Bld) [Volum e fraction]Ordered By: Dr. Rankin on 04-17-2023 Hematocrit (Bld) [Volume fraction] 48.4 % 40-54 [facility] Laboratory - Chemistry and C hemistry - challengeOrdered By: Dr. Rankin on 04-17-2023 CO2 [Moles/Vol] 27.0 mmol/L 21.0-32.0 [facility] Urea nitrogen/Creatinine [Mass ratio] 19.5 mg/mg 10-20 [facility] - Hematology and Cell countsOrdered By: Dr. Rankin on 04-17-2023 Erythrocyte distribution width (RBC) [Entitic vol] 48.0 fL 35.1-43.9 [facility] Erythrocyte distribution width (RBC) [Ratio] 14.4 % 11.6-14.6 [facility] Immature granulocytes/100 WBC (Bld) 0.200 % 0.0-0.9 [facility] Comment on above: IG% - Immature Granu locytes (promyelocytes, myelocytes and metamyelocytes) > 1% indicates that a LEFT SHIFT is Present. MCH (RBC) [Entitic mass] 30.2 pg 27.0-32.0 [facility] Nucleated RBC/100 WBC (Bld) [Ratio] 0 % 0-5 [facility] MCHC Auto (RBC) [Mass/Vol]Or dered By: Dr. Rankin on 04-17-2023 MCHC (RBC) [Mass/Vol] 33.1 g/dL 32-36 [facility] No Panel InformationOrdered By: Dr. Rankin on 04-17-2023 Estimated GFR (MDRD) Amer 112 mL/min >60 [facility] Comment on above: GFR Calc Estimated GFR (MDRD) Non-Af Amer 92 mL/min >60 [facility] Comment on above: Non- GFR Calc Thyroid Stimulating Hormone (TSH) 1.11 uIU/mL 0.358-3.74 [facility] Platelets bldOrdered By: Dr. Rankin on 04-17-2023 Platelets (Bld) [#/Vol] 180 10*3/uL 150-450 [facility] Serum or plasma calcium merrill urement (mass/volume)Ordered By: Dr. Rankin on 04-17-2023 Calcium [Mass/Vol] 8.8 mg/dL 8.5-10.1 [facility] Serum or plasma creatinine m easurement (mass/volume)Ordered By: Dr. Rankin on 04-17-2023 Creatinine [Mass/Vol] 0.87 mg/dL 0.70-1.30 [facility] Comment on above: The validity of the calculated GFR & GFRAA in patients over 70 years has not been determined. Clinical correlation is essential. Serum or plasma urea nitroge n measurement (mass/volume)Ordered By: Dr. Rankin on 04-17-2023 Urea nitrogen [Mass/Vol] 17 mg/dL 7-18 [facility] Thin prep Papanicolaou smear with manual screeningOrdered By: Dr. Rankin on 04-17-2023 Thin prep Papanicolaou smear with manual screening 3 5-15 [facility] MISCon 04-03-2023 Misc. Send Out See Comments Normal [facility] ([place]) Comment on above: Result Comment: Comp lete reference lab report scanned to EMR. Performed By: #### C ARBAYRONM, ANEU, ADIFF, CARDIG, CBC, CARDIA #### [address] [address] [facility] 03-15-2023 Cardiolipin IgA Ab 13.1 APL High <12.0 [facility] ([place]) Comment on above: Result Comment: <12 APL Negative 12-20 APL Indeterminate >20 APL Positive The following results were obtained with the FlickIM QUANTA Lite VICKI IgA III NASH. Cardiolipin [...] others. Clinical correlation is required. Performed By: [facility] [address] [place] [address] Electron Tube Assembler: Azael Pratt III, M.D. CLIA#: [id number] Performed By: #### C EWELINA PARK ADIFF, CARDIJoe, CBC, CARDIA #### [place] [address] [place], [place] [address] [facility] 03-15-2023 IgG Cardiolipin Ab <9.0 Normal <15.0 [facility] ([place]) Comment on above: Result Comment: <15 GPL Negative 15-20 GPL Indeterminate >20 GPL Positive The following results were obtained with the Idea Deviceva QUANTA Lite VICKI IgG III NASH. Cardiolipin [...] Clinical correlation is required. Performed By: [facility] [employer] [place] [id number] Electron Tube Assembler: Azael Pratt III, M.D. CLIA#: [id number] Performed By: #### C EWELINA PARK ADIFF, CARDIG, CBC, CARDIA #### [place] [address] [place], [place] [address] [facility] 03-15-2023 IgM Cardiolipin Ab 42.2 MPL High <12.5 [facility] ([place]) Comment on above: Result Comment: <12. 5 MPL Negative 12.5-20 MPL Indeterminate >20 MPL Positive The following results were obtained with the Idea Device[employer] QUANTA Lite VICKI IgM III NASH. Cardiolipin [...] Clinical correlation is required. Performed By: [facility] [place] [address] Electron Tube Assembler: AzaelSilvino Jay III#: [id number] Performed By: #### C ARDIM, ANEU, ADIFF, CARDIG, CBC, CARDIA #### [address] [address] .Auto [employer]on 03-14-2023 Basophil, Absolute 0.0 10 3/mcL Normal 0.0-0.2 [facility] (MD) Comment on above: Performed By: #### C ARDIM, ANEU, ADIFF, CARDIG, CBC, CARDIA #### [address] [address] Basophils/100 WBC (Bld) 0.8 % Normal 0.0-2.5 [facility] ([place]) Comment on above: Performed By: #### C ARDIM, ANEU, ADIFF, CARDIG, CBC, CARDIA #### [address] [address] Eosinophil, Absolute 0.3 10 3/mcL Normal 0.0-0.4 [facility] ([place]) Comment on above: Performed By: #### C ARDIM, ANEU, ADIFF, CARDIG, CBC, CARDIA #### [address] [address] Eosinophils/100 WBC (Bld) 5.7 % Normal 0.0-7.0 [facility] (MD) Comment on above: Performed By: #### C ARDIM, ANEU, ADIFF, CARDIG, CBC, CARDIA #### [address] [address] Lymphocyte, Absolute 1.4 10 3/mcL Normal 0.8-3.9 [facility] (MD) Comment on above: Performed By: #### C ARDIM, ANEU, ADIFF, CARDIG, CBC, CARDIA #### [address] [address] Lymphocytes/100 WBC (Bld) 26.9 % Normal 10.0-50.0 [facility] ([place]) Comment on above: Performed By: #### C ARDIM, ANEU, ADIFF, CARDIG, CBC, CARDIA #### [address] [address] Monocyte, Absolute 0.8 10 3/mcL Normal 0.2-1.0 [facility] (MD) Comment on above: Performed By: #### C ARDIM, ANEU, ADIFF, CARDIG, CBC, CARDIA #### [place] [address] Monocytes/100 WBC (Bld) 15.6 % High 1.7-13.0 [facility] (MD) Comment on above: Performed By: #### C ARDIM, ANEU, ADIFF, CARDIG, CBC, CARDIA #### [place] [address] Neutrophils/100 WBC (Bld) 51.0 % Normal 37.0-80.0 [facility] (MD) Comment on above: Performed By: #### C ARDIM, ANEU, ADIFF, CARDIG, CBC, CARDIA #### [place] [address] .NE[employer]Son 03-14-2023 Neutrophil, Absolute 2.7 10 3/mcL Low 2.9-6.2 [facility] (MD) Comment on above: Performed By: #### C ARDIM, ANEU, ADIFF, CARDIG, CBC, CARDIA #### [place] [address] [facility] 03-14-2023 Erythrocyte distribution width (RBC) [Ratio] 14.5 % Normal 11.5-14.5 [facility] (MD) Comment on above: Performed By: #### C ARDIM, ANEU, ADIFF, CARDIG, CBC, CARDIA #### [place] [address] Hematocrit (Bld) [Volume fraction] 46.5 % Normal 42.0-52.0 [facility] (MD) Comment on above: Performed By: #### C ARDIM, ANEU, ADIFF, CARDIG, CBC, CARDIA #### [place] [address] Hgb 15.8 G/dL Normal 14.0-18.0 [facility] (MD) Comment on above: Performed By: #### C ARDIM, ANEU, ADIFF, CARDIG, CBC, CARDIA #### [address] [address] MCH (RBC) [Entitic mass] 30.0 pg Normal 27.0-31.2 [facility] (MD) Comment on above: Performed By: #### C ARDIM, ANEU, ADIFF, CARDIG, CBC, CARDIA #### [place] [address] MCHC 33.9 G/dL Normal 31.8-35.4 [facility] ([place]) Comment on above: Performed By: #### C ARDIM, ANEU, ADIFF, CARDIG, CBC, CARDIA #### [place] [address] MCV (RBC) [Entitic vol] 88.4 fL Normal 80.0-94.0 [facility] (MD) Comment on above: Performed By: #### C ARDIM, ANEU, ADIFF, CARDIG, CBC, CARDIA #### [place] [address] Platelet 179 10 3/mcL Normal 130-400 [facility] ([place]) Comment on above: Performed By: #### C ARDIM, ANEU, ADIFF, CARDIG, CBC, CARDIA #### [place] [address] Platelet mean volume (Bld) [Entitic vol] 8.7 fL Normal 7.4-10.4 [facility] (MD) Comment on above: Performed By: #### C ARDIM, ANEU, ADIFF, CARDIG, CBC, CARDIA #### [place] [phone] RBC 5.26 10 6/mcL Normal 4.04-6.13 [facility] (MD) Comment on above: Performed By: #### C ARDIM, ANEU, ADIFF, CARDIG, CBC, CARDIA #### [address] [address] WBC 5.3 10 3/mcL Normal 4.6-10.8 [facility] (MD) Comment on above: Performed By: #### C ARDIM, ANEU, ADIFF, CARDIG, CBC, CARDIA #### [address] [address] Throat specimen bacteria harry ntification by cultureOrdered By: Roya Patel on 01-10-2023 Bacteria identified Cx Nom (Throat) streptococcus isolated. [facility] MISCon 11-15-2022 Misc. Send Out See Comments Normal [facility] ([place]) Comment on above: Result Comment: Comp lete reference lab report scanned to EMR. Performed By: #### C ARDIM, ANEU, ADIFF, CARDIG, CBC, CARDIA #### [address] [address] .Auto Diffon 11-06-2022 Basophil, Absolute 0.1 10 3/mcL Normal 0.0-0.2 [facility] (MD) Comment on above: Performed By: #### U BEBE, ADIFF, MISC, GFR, ANEU, CBC, CMP #### [address] [address] Basophils/100 WBC (Bld) 0.8 % Normal 0.0-2.5 [facility] (MD) Comment on above: Performed By: #### U BEBE, ADIFF, MISC, GFR, ANEU, CBC, CMP #### [address] [address] Eosinophil, Absolute 0.3 10 3/mcL Normal 0.0-0.4 [facility] (MD) Comment on above: Performed By: #### U BEBE, ADIFF, MISC, GFR, ANEU, CBC, CMP #### [address] [address] Eosinophils/100 WBC (Bld) 4.6 % Normal 0.0-7.0 [facility] (MD) Comment on above: Performed By: #### U BEBE, ADIFF, MISC, GFR, ANEU, CBC, CMP #### [address] [address] Lymphocyte, Absolute 1.3 10 3/mcL Normal 0.8-3.9 [facility] (MD) Comment on above: Performed By: #### U BEBE, ADIFF, MISC, GFR, ANEU, CBC, CMP #### [address] [address] Lymphocytes/100 WBC (Bld) 18.5 % Normal 10.0-50.0 [facility] (MD) Comment on above: Performed By: #### U BEBE, ADIFF, MISC, GFR, ANEU, CBC, CMP #### [address] [address] Monocyte, Absolute 0.9 10 3/mcL Normal 0.2-1.0 [facility] (MD) Comment on above: Performed By: #### U BEBE, ADIFF, MISC, GFR, ANEU, CBC, CMP #### [address] [address] Monocytes/100 WBC (Bld) 12.5 % Normal 1.7-13.0 [facility] ([place]) Comment on above: Performed By: #### U BEBE, ADIFF, MISC, GFR, ANEU, CBC, CMP #### [address] [address] Neutrophils/100 WBC (Bld) 63.6 % Normal 37.0-80.0 [facility] (MD) Comment on above: Performed By: #### U BEBE, ADIFF, MISC, GFR, ANEU, CBC, CMP #### [address] [address] .GFRon 11-06-2022 GFR 87 ml/min/1.73sqm Normal [facility] ([place]) Comment on above: Result Comment: GFR Population [...] ARDIM, ANEU, ADIFF, CARDIG, CBC, CARDIA #### [address] [address] GFR Non- 72 ml/min/1.73sqm Normal [facility] ([place]) Comment on above: Result Comment: GFR Population [...] ARDIM, ANEU, ADIFF, CARDIG, CBC, CARDIA #### [address] [address] .NEUABSon 11-06-2022 Neutrophil, Absolute 4.3 10 3/mcL Normal 2.9-6.2 [facility] (MD) Comment on above: Performed By: #### U BEBE, ADIFF, MISC, GFR, ANEU, CBC, CMP #### [address] [address] [facility]Con 11-06-2022 Erythrocyte distribution width (RBC) [Ratio] 15.1 % High 11.5-14.5 [facility] (MD) Comment on above: Performed By: #### U BEBE, ADIFF, MISC, GFR, ANEU, CBC, CMP #### [address] [address] Hematocrit (Bld) [Volume fraction] 44.4 % Normal 42.0-52.0 [facility] (MD) Comment on above: Performed By: #### U BEBE, ADIFF, MISC, GFR, ANEU, CBC, CMP #### [address] [address] Hgb 15.0 G/dL Normal 14.0-18.0 [facility] ([place]) Comment on above: Performed By: #### U BEBE, ADIFF, MISC, GFR, ANEU, CBC, CMP #### [place] [phone] MCH (RBC) [Entitic mass] 30.5 pg Normal 27.0-31.2 [facility] (MD) Comment on above: Performed By: #### U BEBE, ADIFF, MISC, GFR, ANEU, CBC, CMP #### [place] [address] MCHC 33.8 G/dL Normal 31.8-35.4 [facility] (MD) Comment on above: Performed By: #### U BEBE, ADIFF, MISC, GFR, ANEU, CBC, CMP #### [address] [address] MCV (RBC) [Entitic vol] 90.3 fL Normal 80.0-94.0 [facility] ([place]) Comment on above: Performed By: #### U BEBE, ADIFF, MISC, GFR, ANEU, CBC, CMP #### [address] [address] Platelet 193 10 3/mcL Normal 130-400 [facility] ([place]) Comment on above: Performed By: #### U BEBE, ADIFF, MISC, GFR, ANEU, CBC, CMP #### [address] [address] Platelet mean volume (Bld) [Entitic vol] 8.6 fL Normal 7.4-10.4 [facility] ([place]) Comment on above: Performed By: #### U BEBE, ADIFF, MISC, GFR, ANEU, CBC, CMP #### [address] [address] RBC 4.92 10 6/mcL Normal 4.04-6.13 [facility] ([place]) Comment on above: Performed By: #### U BEBE, ADIFF, MISC, GFR, ANEU, CBC, CMP #### [address] [address] WBC 6.8 10 3/mcL Normal 4.6-10.8 [facility] ([place]) Comment on above: Performed By: #### U BEBE, ADIFF, MISC, GFR, ANEU, CBC, CMP #### [address] [address] CMPon 11-06-2022 Albumin Level 4.1 G/dL Normal 3.4-4.8 [facility]) Comment on above: Performed By: #### C ARDIM, ANEU, ADIFF, CARDIG, CBC, CARDIA #### [address] [address] Albumin/Globulin [Mass ratio] 1.3 {ratio} Normal 1.1-2.5 [facility] ([place]) Comment on above: Performed By: #### C ARDIM, ANEU, ADIFF, CARDIG, CBC, CARDIA #### [address] [address] ALP [Catalytic activity/Vol] 116 U/L Normal 40-135 [facility] ([place]) Comment on above: Performed By: #### C ARDIM, ANEU, ADIFF, CARDIG, CBC, CARDIA #### [address] [address] ALT [Catalytic activity/Vol] 34 U/L Normal 16-63 [facility] ([place]) Comment on above: Performed By: #### C ARDIM, ANEU, ADIFF, CARDIG, CBC, CARDIA #### [address] [address] AST [Catalytic activity/Vol] 30 U/L Normal 10-40 [facility] ([place]) Comment on above: Performed By: #### C ARDIM, ANEU, ADIFF, CARDIG, CBC, CARDIA #### [address] [address] Bili Total 0.8 mg/dL Normal 0.2-1.0 [facility] ([place]) Comment on above: Result Comment: Use of this assay is not recommended for patients undergoing treatment with eltrombopag due to the potential for falsely elevated results. Performed By: #### C ARDIM, ANEU, ADIFF, CARDIG, CBC, CARDIA #### [address] [address] BUN/Creatinine Ratio 22 ratio Normal 7-27 [facility] ([place]) Comment on above: Performed By: #### C ARDIM, ANEU, ADIFF, CARDIG, CBC, CARDIA #### [address] [address] Calcium [Mass/Vol] 9.7 mg/dL Normal 8.4-10.2 [facility] ([place]) Comment on above: Performed By: #### C ARDIM, ANEU, ADIFF, CARDIG, CBC, CARDIA #### [address] [address] Chloride [Moles/Vol] 104 mmol/L Normal 98-107 [facility] ([place]) Comment on above: Performed By: #### C ARDIM, ANEU, ADIFF, CARDIG, CBC, CARDIA #### [address] [address] CO2 [Moles/Vol] 26 mmol/L Normal 23-31 [facility] ([place]) Comment on above: Performed By: #### C ARDIM, ANEU, ADIFF, CARDIG, CBC, CARDIA #### [address] [address] Creatinine [Mass/Vol] 1.03 mg/dL Normal 0.70-1.30 [facility] ([place]) Comment on above: Performed By: #### C ARDIM, ANEU, ADIFF, CARDIG, CBC, CARDIA #### [address] [address] Electrolyte Balance 13.0 mEq/L Normal 4.0-15.0 [facility] ([place]) Comment on above: Performed By: #### C ARDIM, ANEU, ADIFF, CARDIG, CBC, CARDIA #### [address] [address] Globulin 3.2 G/dL Normal [facility] ([place]) Comment on above: Performed By: #### C ARDIM, ANEU, ADIFF, CARDIG, CBC, CARDIA #### [address] [address] Glucose [Mass/Vol] 85 mg/dL Normal 80-115 [facility] ([place]) Comment on above: Performed By: #### C ARDIM, ANEU, ADIFF, CARDIG, CBC, CARDIA #### [address] [address] Potassium [Moles/Vol] 4.6 mmol/L Normal 3.5-5.1 [facility] ([place]) Comment on above: Performed By: #### C ARDIM, ANEU, ADIFF, CARDIG, CBC, CARDIA #### [address] [address] Sodium [Moles/Vol] 143 mmol/L Normal 136-145 [facility] ([place]) Comment on above: Performed By: #### C ARDIM, ANEU, ADIFF, CARDIG, CBC, CARDIA #### [address] [address] Total Protein 7.3 G/dL Normal 6.4-8.2 [facility] ([place]) Comment on above: Performed By: #### C ARDIM, ANEU, ADIFF, CARDIG, CBC, CARDIA #### [address] [address] Urea nitrogen [Mass/Vol] 23 mg/dL High 7-18 [facility] ([place]) Comment on above: Performed By: #### C ARDIM, ANEU, ADIFF, CARDIG, CBC, CARDIA #### [place] [address] [place] [address] LABORATORYOrdered By: SYSTEM SYSTEM on 11-06-2022 Albumin [...] Uric Acid Lvl 5.2 mg/dL Normal 3.5-7.2 [facility] ([place]) Comment on above: Performed By: #### U BEBE, ADIFF, MISC, GFR, ANEU, CBC, CMP #### [place] [address] [place], [place] [address] Basophil percentageon 2021 Bilirubin [Mass/Vol] 1.00 mg/dL 0.20-1.00 [facility] Work Phone: Comment on above: For patients on eltr ombopag therapy, use of Dimension [place] TBIL is not recommended. Chloride [Moles/Vol] 103 mmol/L 98-107 [facility] Work Phone: Glucose [Mass/Vol] 78 mg/dL 74-106 [facility] Work Phone: Potassium [Moles/Vol] 4.8 mmol/L 3.5-5.1 [facility] Work Phone: Protein [Mass/Vol] 7.7 g/dL 6.4-8.2 [facility] Work Phone: Sodium [Moles/Vol] 138 mmol/L 136-145 [facility] Work Phone: Laboratory - Chemistry and C hemistry - challengeon 08-20-2022 ALP [Catalytic activity/Vol] 119 U/L 45-117 [facility] Work Phone: ALT [Catalytic activity/Vol] 27 U/L 16-61 [facility] Work Phone: CO2 [Moles/Vol] 29.0 mmol/L 21.0-32.0 [facility] Work Phone: Globulin (S) [Mass/Vol] 3.7 g/dL 2.2-4.2 [facility] Work Phone: Urea nitrogen/Creatinine [Mass ratio] 18.8 mg/mg 10- [facility] Work Phone: No Panel Informationon 08-20 Estimated GFR (MDRD) Amer 100 mL/min >60 [facility] Work Phone: Comment on above: GFR Calc Estimated GFR (MDRD) Non-Af Amer 83 mL/min >60 [facility] Work Phone: Comment on above: Non- GFR Calc Miscellaneous Test See comment [facility] Work Phone: Comment on above: TEST RESULT LIMITSCa ndida Antibodies IgG,IgA,IgMCandida Antibodies IgG A, Positive Abnormal NegativeCandida Antibodies IgM A, Negative Negative Please note reference interval changeUmu Antibodies IgA A, Negative Negative Please note reference interval changeA: Results of this test are labeled for research purposes only by the assay's voucher clerk. The performance characteristics of this assay have not beenestablished by the voucher clerk. The result should not be used for treatment or for diagnostic purposes without confirmation of the diagnosis by anothermedically established diagnostic product or procedure. The performance characteristics were determined by [employer]. __ TESTING PERFORMED AT [facility]. ORIGINAL REPORT ON FILE IN LAB CONTAINS ADDITIONAL TEST SITE INFORMATION. Serum or plasma albumin merrill urement (mass/volume)on 08-20-2022 Albumin [Mass/Vol] 4.0 g/dL 3.2-5.0 [facility] Work Phone: Serum or plasma albumin/glob ulin mass ratioon 08-20-2022 Albumin/Globulin [Mass ratio] 1.1 {ratio} 0.9-2.4 [facility] Work Phone: Serum or plasma calcium merrill urement (mass/volume)on 08-20-2022 Calcium [Mass/Vol] 9.6 mg/dL 8.5-10.1 [facility] Work Phone: Serum or plasma creatinine m easurement (mass/volume)on 08-20-2022 Creatinine [Mass/Vol] 0.96 mg/dL 0.70-1.30 [facility] Work Phone: Comment on above: The validity of the calculated GFR & GFRAA in patients over 70 years has not been determined. Clinical correlation is essential. Serum or plasma urea nitroge n measurement (mass/volume)on 08-20-2022 Urea nitrogen [Mass/Vol] 18 mg/dL 7-18 [facility] Work Phone: Thin prep Papanicolaou smear with manual screeningon 08-20-2022 Thin prep Papanicolaou smear with manual screening 21 U/L 15-37 [facility] Work Phone: Thin prep Papanicolaou smear with manual screening 6 5-15 [facility] Work Phone: CNOVon 05-15-2021 CNOV Office Visit (GSTNOR ) DANIEL CHAND ([id number]) 1955 M EXC Date Time Provider Department [...] of active drainage, anal fissures, external hemorrhoids. Shellfish Shucker: Smiley Rincon MA Musculoskeletal: General: Normal range [...] capsule; R (more content not included)... Normal [facility] 04-12-2021 CNPN Telephone (GENJob2DayE) DANIEL CHAND ([id number]) 1955 M EXC Date Time Provider Department 04/12/21 GAEL MOTT During your visit today, we recorded the following information about you: Jena Garcia [facility] 04/12/2021 10:04 AM Signed Patient is being referred to Gastroenterology for diarrhea and lymphocytic colitits found on recent colonsocopy. Appointment was made for May 15 at 10:00 with the PAKeila. Patient has been notified and appointment reminder mailed as patient does not have mychart. Thank you Jena Radha [facility] Allergies As of Date: 04/12/2021 Noted Allergy Reaction SEASONAL ALLERGIES 06/02/2012 14 - Other: See Comments Comments: Upper Respiratory Symptoms, congestion and headaches; weekly allergy shots shrimp [Other] 08/28/2010 11 - Vomiting Date Reviewed: 04/11/2021 Reviewed by: Ruth Linder PA-C - Fully Assessed Reason for Visit: Other [facility] Referral [[id number]] Cmt: to Gastroeneterology Prescriptions as of 04/12/2021 Sig: COLLAGEN MISC MUPIROCIN 2 % TOPICAL OINTMENT Apply 1 application to affect* COD LIVER OIL ORAL Take by mouth once daily. * BEE POLLEN ORAL Take by mouth. * CITRACAL + D ORAL Take by mouth. Problem List As Of Date 04/12/2021 Noted Resolved Special Screening for Malignant Neoplasms, [place]*09/08/2009 Family history of colon cancer [Z80.0] 09/08/2009 03/30/2021 Benign Neoplasm of Colon [D12.6] 09/08/2009 Rotator cuff (capsule) sprain and strain [S43.4*09/20/2010 Biceps tendon rupture [S46.219A] 06/02/2012 Diarrhea [R19.7] 03/30/2021 03/30/2021 Change in bowel habit [R19.4] 03/30/2021 03/30/2021 Personal history of colonic polyps [Z86.010] 03/30/2021 Encounter Status:Closed by JENA SYED on 04/12/21 [facility] CNOVon 04-11-2021 CNOV Office Visit (GENSWS ) DANIEL CHAND ([id number]) 1955 M EXC Date Time Provider Department [...] - ENDOSCOPY NAME: Daniel Chand CLINIC NO.: [id number] DATE OF SERVICE: 04/11/2021 : 1955 REFERRING [...] with more than 50% of the total [id number]-[id number]-[id number] time of the visit in counseling / coordination of care. Ruth Linedr PA-C Referring Provider: SELF [200] Allergies As of Date: 04/11/2021 Noted Allergy Reaction SEASONAL ALLERGIES 06/02/2012 14 - Other: See Comments Comments: Upper Respiratory Symptoms, congestion and headaches; weekly allergy shots shrimp [Other] 08/28/2010 11 - Vomiting Date Revi (more content not included)... Normal [facility] HISTORY PHYSICALon HISTORY PHYSICAL HNO ID: [id number] Author: Gael Mott MD Service: General Surgery [...] March 30, 2021 TIME: 9:30 AM Normal [facility] NURSING PROGon 03-30-2021 NURSING PROG HNO ID: [id number] Author: Lauren Caruso RN Service: Nursing Author Type: Registered Nurse Type: Nursing Progress Note Filed: 03/30/2021 10:49 AM Note Text: Pt into Endo recovery room in satisfactory condition. Resting on left side. Pt. sleepy but arousable. Abdomen soft, no complaints. Will continue to monitor. Normal [facility] NURSING PROG HNO ID: [id number] Author: Cindy Lawrence RN Service: ? Author Type: Registered Nurse Type: Nursing Progress Note Filed: 03/30/2021 10:16 AM Note Text: [facility] PRE-OP NURSING HAND OFF NOTE SBAR Hand off given to Emily Houston RN. Hand off was communicated verbally and at the patient's bedside and all questions were answered. Cindy Lawrence RN Normal [facility] SURGICAL PATHOLOGYon 021 SURGICAL PATHOLOGY Specimen originated from [facility] Specimen #: [id number] Submitting Physician: GAEL MOTT ([id number]) FINAL DIAGNOSIS [...] in one cassette. Gross examination performed at [facility], [address] [place] [address] 03/30/2021 8:59:46 PM Date of Report: 04/01/2021 Date of Procedure: 03/30/2021 Date of Receipt: 03/30/2021 Submitted by: GAEL MOTT ([id number]) Location: [facility] Diagnostic interpretation performed at [place] [address]. [place] Number: [id number] Normal [facility] CNOVon 03-15-2021 CNOV Office Visit (SWS ) DANIEL CHAND ([id number]) 1955 M EXC Date Time Provider Department 03/15/21 8:00 AM RUTH LINDER During your visit today, we recorded the following information about you: Temperature Pulse Blood pressure Weight 97.4 degrees 67/minute 104/62 77.6 kg Height 1.803 m Stefany Benavidez LOOKBACK COORDINATOR 03/15/2021 8:12 AM Signed REVIEW OF SYSTEMS: [...] ointment Apply (more content not included)... Normal [facility] Marilou 03-15-2021 CNPN Telephone ([email or web address].MES) MANNIEDANIEL Hinojosa ([id number]) 1955 M EXC Date Time Provider Department 03/15/21 GAEL MOTT Clan FightS During your visit today, we recorded the [...] physical limitations: No Any cognitive limitations: No Delinquency Counselor/Translato r required: No Communication Limitations: No Allergies [...] Noted Resolved Special Screening for Malignant Neoplasms, [place]*09/08/2009 Family History of Malignant Neoplasm of Gastroi*09/08/2009 Benign Neoplasm of Colon [D12.6] 09/08/2009 Rotator cuff (capsule) sprain and strain [S43.4*09/20/2010 Biceps tendon rupture [S46.219A] 06/02/2012 Encounter Status:Closed by CARMEN RANDOLPH on 04/12/21 [facility] 03-15-2021 [facility] Patient:Daniel Chand MRN: Height:5' 11(1.803 m) Weight:171 [...] for the following basenames: K,HCT Progress Notes ([facility]): Carmen Randolph 03/15/2021 10:22 AM Signed [...] physical limitations: No Any cognitive limitations: No Delinquency Counselor/Translato r required: No Communication Limitations: No Progress Notes ([facility]): Stefany Benavidez KYLIE 03/15/2021 8:12 AM [...] PCP outside (more content not included)... Normal [facility] Vital Signs Date Time Vital Sign Value Performing Clinician Isaiah mir 02-01-2025 08:59-0400 Body height 182.[address] Nicole Echeverria DO Work Phone: [facility] 02-01-2025 08:59-0400 Body mass index (BMI) [Ratio] 23.3 kg/m2 Dr. Nicole Echeverria DO Work Phone: [facility] 02-01-2025 08:59-0400 Body weight 78.[address] Nicole Echeverria DO Work Phone: [facility] 04-17-2023 09:59-0400 Body height 182.[address] Mare Castellano Work Phone: [facility] 04-17-2023 09:59-0400 Body mass index (BMI) [Ratio] 23.8 kg/m2 Dr. Mare Castellano Work Phone: [facility] 04-17-2023 09:59-0400 Body weight 79.[address] Mare Castellano Work Phone: [facility] 04-17-2023 09:59-0400 Diastolic blood pressure 54 mm[Hg] Dr. Mare Castellano Work Phone: [facility] 04-17-2023 09:59-0400 Heart rate 52 /min Dr. Mare Castellano Work Phone: [facility] 04-17-2023 09:59-0400 Respiratory rate 16 /min Dr. Mare Castellano Work Phone: [facility] 04-17-2023 09:59-0400 Systolic blood pressure 99 mm[Hg] Dr. Mare Castellano Work Phone: [facility] Encounters Encounter Date Encounter Type Care Provider Facility Start: 05-11-[address] Kumar Israel MD -[facility] [place] Work Phone: Start: 05-08-2025 ambulatory Kumar Israel [facility] Start: 05-05-2025 End: 05-05-[address] Kumar Israel MD -Laboratory Work Phone: Start: 05-05-2025 End: 05-05-2025 ambulatory Kumar Israel Facility:[facility] Start: 03-23-2025 End: 03-23-[address] Nicole Echeverria DO Work Phone: [facility] Work Phone: Start: 03-23-2025 End: 03-23-[address] Kumar Israel MD -Laboratory [place] Work Phone: Start: 03-23-2025 End: 03-23-[address] Dru Wilson MD -[facility] Work Phone: Start: 03-23-2025 End: 03-23-[address] Nicole Echeverria DO Work Phone: [facility] Work Phone: Start: 03-23-2025 End: 03-23-2025 ambulatory Kumar Israel Facility:[facility] Start: 03-16-2025 End: 03-16-[address] Nicole Echeverria DO -Cat Scan [facility] Work Phone: Start: 03-16-2025 End: 03-16-2025 ambulatory Nicole Echeverria Facility:[facility] Start: 03-09-2025 End: 03-09-[address] Nicole Echeverria DO Work Phone: [facility] Work Phone: Start: 03-09-2025 End: 03-09-[address] Dru Wilson MD -[facility] Work Phone: Start: 03-09-2025 End: 03-09-2025 ambulatory Nicole Echeverria Facility:[facility] Start: 02-01-2025 End: 02-01-[address] Dru Wilson MD -[facility] Work Phone: Start: 02-01-2025 End: 02-01-2025 ambulatory Nicole Echeverria Facility:[facility] Start: 01-01-2025 End: 01-01-[address] Nicole Echeverria DO Work Phone: [facility] Work Phone: Start: 01-01-2025 End: 01-01-[address] Jerrod Swain MD -Laboratory, Specimen Work Phone: Start: 01-01-2025 End: 01-01-2025 ambulatory Nicole Echeverria Facility:[facility] Start: 12-25-2024 End: 12-25-[address] Nicole Echeverria DO Work Phone: [facility] Work Phone: Start: 12-25-2024 End: 12-25-[address] Nicole Echeverria DO -Cat Scan, [facility] Work Phone: Start: 12-25-2024 End: 12-25-2024 ambulatory Nicole Echeverria Facility:[facility] Start: 02-11-2024 End: 02-11-2024 ambulatory [facility] Work Phone: Start: 02-11-2024 End: 02-11-2024 Patient encounter procedure [facility]-Laboratory, Specimen Work Phone: Start: 05-10-2023 Non-patient / Non-visit Dr. Mare Castellano Work Phone: [facility] Start: 05-10-2023 End: 05-10-[address] Mare Castellano Work Phone: [facility] Work Phone: Start: 05-10-2023 End: 05-10-[address] Maer Castellano Work Phone: [facility]-Cardiovascula r Services Work Phone: Start: 04-17-2023 End: 04-17-[address] Mare Castellano Work Phone: [facility] Work Phone: Start: 04-17-2023 End: 04-17-[address] Mare Castellano Work Phone: [facility]-Laboratory Start: 04-17-2023 End: 04-17-[address] Mare Castellano Work Phone: [facility] Start: 2023 End: 03-20-[address] MIREILLE DONIS MD Facility:B Start: 03-14-2023 End: 03-15-[address] MIREILLE DONIS MD Facility:[facility] Start: 01-07-2023 End: 01-07-[address] Mare Castellano Work Phone: [facility]-Laboratory, Specimen Start: 11-06-2022 End: 11-07-2022 ambulatory JULISA GARCIA EXPORT CLERK Facility:[facility] Start: 11-06-2022 End: 11-06-2022 Patient encounter procedure JULISA Chato KENDALJOSE ARMANDO EXPORT CLERK [facility] Start: 08-20-2022 End: 08-20-2022 ambulatory [facility] Work Phone: Start: 08-20-2022 End: 08-20-2022 Patient encounter procedure [facility] Start: 08-07-2022 End: 08-07-2022 ambulatory [facility] Work Phone: Start: 08-07-2022 End: 08-07-2022 Discharged Recurring [facility]-Physical Therapy Start: 08-07-2022 Registered Recurring [facility] Therapy Start: 12-19-2021 End: 12-19-2021 Discharged Recurring [facility]-Physical Therapy Procedures Date Procedure Procedure Detail [...] nd lateral views Chest PA and Lateral [facility] Start: 05-11-2025 XR Chest PA and Lateral [facility] Start: 02-01-2025 Patient referral [facility] Work Phone: Start: 08-20-2022 Procedure [facility] Work Phone: 24 Hour ECG [facility] Cardiovascular stres s testing [facility] Patient referral [facility] Work Phone: Procedure [facility] Work Phone: US Heart [facility] Payers Date Payer Category Payer Self-pay [id number] 2022 Medicare [id number] 2022 Private Health Insurance [facility] [id number] 2014 Unknown [id number] 2012 Unknown [id number] 1955 Unknown [id number] 2.16.8 [id number] 1955 Unknown [id number] 2.16.8 [id number] 1955 Unknown [id number] 2.16.8 [id number] Unknown [id number] Unknown [id number] 2.16.8 [id number] Unknown [id number] 2.16.8 [id number] Unknown [id number] 2.16.8 [id number] Unknown [id number] 2.16.8 [id number] Unknown [id number] 2.16.8 [id number] Unknown [id number] 2.16.8 [id number] Unknown [id number] 2.16.8 [id number] Unknown [id number] 2.16.8 [id number] Unknown [id number] 2.16.8 [id number] Unknown [id number] 2.16.8 [id number] Social History Date Type Detail Facility Start: 11-25-2017 End: 04-17-2023 Tobacco smoking status SDIS Unknown if ever smoked [facility] Start: 1955 Sex Assigned At Male A [facility] Tobacco smoking status No Smokin g Status Entered [facility] Start: 04-17-2023 Tobacco smoking stat us NHIS Never smoked tobacco (finding) [facility] Start: 01-07-2025 End: 01-14-2025 Sex Male (finding) [facility] Clinical Notes 03-15-2021 to 02-01-2025 Note Date & Type Note Facility 02-01-2025 Evaluation note Diagnosis Onset Date Resolution Right hip pain acute February 01, 2025 8:59am Right shoulder pain acute February 01, 2025 8:59am S/P right rotator cuff repair acute February 01, 2025 8:59am [facility] Work Phone: 1(890) 219-221904-07-2025 Evaluation note* Diagnosis Onset Date Resolution Status Admit Date Right hip pain acute February 01, 2025 8:59am Right shoulder pain acute February 01, 2025 8:59am S/P right rotator cuff repair acute February 01, 2025 8:59am Right rotator cuff tear acute 2024 8:45am Right shoulder pain acute February 262024 8:45am [facility] Work Phone: 1(699) 500-173902-28-2025 Radiology Diagnostic study note [facility] Imaging Services [address] [place] [id number] Sinus/Facial Bone MR#: [id number] Acct: [id number] Name: DANIEL CHAND Rep #: [id number] : 1955 M 69 From: Drew Herndon MD PCP: Dr. Nicole Echeverria DO Status: RE G CLI Study:Sinus/Facial Bone Date of Exam: Exam# [id number] Ordering Dr: Marilyn Echeverria DO PROCEDURE: SINUS/FACIAL [...] use of iterative reconstruction technique). Reading Location: [id number] CC: Dr. Nicole Echeverria, DO ~ Salesperson Shoes: Signed [facility]01-10-2023 Evaluation + Plan note Diagnostic Tests Pending * [facility] Send out (Blood Specimens) 11/06/22 [facility] 07-19-2021 NoteHNO ID: [id number] Author: Keila Schulte PA-C Service: ? Author Type: Physician Project Consultant Type: Progress Notes Filed: 05/15/2021 12:37 PM [...] of active drainage, anal fissures, external hemorrhoids. Shellfish Shucker: Smiley Rincon MA Musculoskeletal: General: Normal range [...] Start Entocort with tap (more content not included)...[facility]06-15-2021 NoteHNO ID: [id number] Author: Ruth Linder PA-C Service: ? Author Type: Physician Project Consultant Type: Progress Notes Filed: 04/16/2021 9:48 PM Note Text: FOLLOW UP VISIT - ENDOSCOPY NAME: Daniel [facility] NO.: [id number] DATE OF SERVICE: 04/11/2021 : 1955 REFERRING [...] above and agreed with the plan Diagnoses: (K51.134) Lymphocytic colitis (primary encounter diagnosis) I spent 31 minutes in the visit, with more than 50% of the total [id number] time of the visit in counseling / coordination of care. [facility] NoteHNO ID: [id number] Author: Ruth Linder PA-C Service: ? Author Type: Physician Project Consultant Type: Progress Notes Filed: 03/15/2021 8:44 AM [...] entered by the nurse and reviewed by hi Nursing Notes: Stefany Benavidez LPN 03/15/2021 8:12 [...] thyroid disorders, denies diabetes, (more content not included)...[facility] information available[facility] Work Phone: Evaluation note* Diagnosis Onset Date Resolution Status Arrhythmia acute [facility] Work Phone: Hospital course Narrative No data available for this section [facility] Hospital Discharge instructions No data available for this section [facility] Progress note No data available for this section [facility] Reason for referral (narrative)No reason for referral information availableWGalion Hospital Work Phone: Summary Purpose Family History Relationship [...] Will Yes November 18 2:53pm Power of Customer Trainer No November 18, 2015 2:53pm Advance Directive Response Recorded Date/ Time Advance Directives Yes November 18, 2015 1:53pm Living Will Yes November 18 1:53pm Power of Customer Trainer No November 18, 2015 1:53pm Advance Directive [...] section and content) DATE CREATED AUTHOR 12/01/2021 [facility] DATE CREATED AUTHOR AUTHOR'S ORGANIZ ATION 04/07/2023 [facility] ([place]) DATE CREATED AUTHOR AUTHOR'S ORGANIZ ATION 05/08/2025 [facility] Goals (unrecognized section and content) Goals may [...] 01, 2025 End: January 01, 2025 Dr. eJrrod Swain MD Attending Provider Activ e Start: [...] BE BASED ON THE PRIMARY CLINICAL RECORDS. [facility] elicit [facility]. provides no warranty or guarantee of the accuracy or completeness of information in this document.
== END | disposition home or self-care (01) ==
LOC: MTRAD 11:22
PROVIDERS: PCP Internal Medicine; Referring Provider Internal Medicine Pulmonary Disease; Visit Provider Internal Medicine Pulmonary Disease
DX: R06.00 Dyspnea, unspecified (principal); R91.8 Other nonspecific abnormal finding of lung field
CPT/HCPCS: 71046

== ENCOUNTER 2025-05-19 11:44 | Day surgery (SDC) | payer MEDICARE, OTHER, SELFPAY ==
--- NOTE | 2025-05-17 10:09 | PAT.ANESEVAL ---
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 When Was Last Pacemaker Check QUESTION #4 FULL TEXT: You/Your Family Experience fever (hyperthermia) with Anesthesia Last Oral Intake Last Oral intake: Last Oral Intake NPO since Meds taken in AM with sips of water? Meds patient instructed to take am of surgery PONV PONV - blow molding machine tender: PONV - blow molding machine tender Female No 05/17/25 09:24 HX of Motion Sickness No 05/17/25 09:24 HX of N/V After Surgery No 05/17/25 09:24 Non-Smoker No 05/17/25 09:24 Duration of Surgery greater No 05/17/25 09:24 than 60 minutes Number of Risk Factors PONV Score Height & Weight Height & Weight: Anesthesia: Height & Weight Height 6 ft 02/01/25 08:59 Respiratory Assessment Respiratory Assessment - blow molding machine tender: Respiratory Tract Infection Hx - blow molding machine tender Hx Respiratory Tract Infection No 05/17/25 09:24 STOP Sleep Apnea STOP Sleep Apnea - blow molding machine tender: STOP Sleep Apnea - blow molding machine tender Hx Hypertension No 05/17/25 09:24 Hx Sleep Apnea No 05/17/25 09:24 CPAP No 05/17/25 09:24 BIPAP No 05/17/25 09:24 Do you snore loudly (louder No 05/17/25 09:24 than talking or can be heard Do you often feel tired/ No 05/17/25 09:24 fatigued/ sleepy during daytime? Has anyone observed you stop No 05/17/25 09:24 breathing during sleep? STOP Results Negative 05/17/25 09:24 QUESTION #5 FULL TEXT : Do you snore loudly (louder than talking or can be heard through closed doors)? 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 Specify any problems Hx of Preganancy in last 3 N/A 05/17/25 09:24 Months Nurse Filling Out Transfusion VCHRISTIN 05/17/25 09:24 & Questions: Date: 05/17/25 05/17/25 09:24 Time: 0905/17/25 09:24 Patient unable to answer at this time (ie. confused, unrespo /Reproduction History /Reproductive History - blow molding machine tender: /Reproductive Hx- blow molding machine tender Hx Now No 05/17/25 09:24 Gestational Age (in weeks): EDC: Hx Hx Para Hx Section SAB No 05/17/25 09:24 [facility] Medical History (Updated 05/17/25 @ 09:23 by Josefina Packer) Wears glasses Alcohol use History of steroid therapy Easy bruising Excessive bleeding Gastric reflux Non-smoker Chronic cough History of echocardiogram History of stress test Cardiology follow-up encounter Right rotator cuff tear Right hip pain Right shoulder pain Chronic sinusitis Hyperlipidemia Insomnia Atrial septal aneurysm Mild mitral valve prolapse Paroxysmal atrial fibrillation Home Medications ?Medication ?Instructions ?Recorded ?Last Taken ?Type magnesium oxide 500 mg PO DAILY 04/15/23 Unknown History cyanocobalamin-liver extract tablet 1 tab PO DAILY 04/17/23 Unknown History organ concentrates 80 mg capsule 80 mg PO DAILY 05/17/25 Unknown History Allergy/AdvReac Type Severity Reaction Status Date / Time desvenlafaxine Allergy Mild Hives Verified 05/17/25 09:13 Family History Mother CVA (cerebral vascular accident) Brother Arthritis Father Pacemaker Surgical History S/P left rotator cuff repair bicep repair S/P right rotator cuff repair History of repair of anterior cruciate ligament of right knee History of open reduction and internal fixation (ORIF) procedure Social History Smoking Status: Never smoker alcohol intake: current alcohol intake frequency: 0-2 drinks per day Alcohol type: beer and hard liquor substance use type: does not use caffeine: Yes Type: coffee Number of servings: 2 Audit: Pertinent Findings Pertinent Findings EKG Perinent findings: April 17, 2023. Sinus bradycardia Stress test pertinent findings: 05/10/2023. Patient achieved a METS of 15.3. No EKG changes for ischemia. Normal exercise stress test at a high workload. Echo (EF%) pertinent findings: 05/10/2023. EF 75%. PASP is 30 mmHg. No aortic valve stenosis noted. Consult pertinent findings: April 17, 2023. Dr. Rankin. 1. Arrhythmia?acute-sinus bradycardia versus dysrhythmia. Current EKG shows sinus bradycardia at 51 bpm. Check echo and stress test (see above). Patient is recommended to see an power lineman. Recommendation Anesthesia Recommendation Anesthesia recommendation: OPTIMIZED for anesthesia
[2025-05-19] VITALS (8 sets, daily range): BP systolic 104–131; BP diastolic 70–93; PULSE 50–58; RESP 16–18; TEMP 36–36.5; O2SAT 97–98; BMI 23.3
--- NOTE | 2025-05-19 | LUNG_PTH ---
PATIENT: DANIEL CHAND LOC: EN U#:[id number] AGE/SX: 70/M ROOM: RE05/19/[address]: Dr. Kumar Israel MD : 1955 BED: DIS: 05/19/2025 SPEC #: [id number] RECD: 05/19/25 14:04 STATUS: AGUSTINA RE #: [id number] ALEKS: 05/19/25 00:[address]: Kumar Israel V DEPT: SURGICAL PATHOLOGY RECD BY: Charli James ENTERED: 05/19/25 15:15 SP TYPE: LUNG BX OTHR DR: Dr. Nicole Echeverria DO Tissues: Lung, NOS Procedures: Immunohistochemical Stains Special Stain Group I Surgery Specimen Level IV AFB Stain (control) GMS Stain (control) IHC Stain ADDITIONAL Comments: Dr. Israel's office was called on 05/26/2025. Spoke to Mary Lou Hogue and informed her that case is being sent out for consultation. HEADER OPERATION: Bronchoscopy with transbronchial biopsy, right upper lobe lateral segment PRE-OP DIAGNOSIS: Abnormal findings of lung field, dyspnea TISSUE SUBMITTED: A- Right upper lobe MICROSCOPIC DIAGNOSIS A. Lung, right, upper, transbronchial biopsy: - Atypical lymphoid infiltrate - see note and Comment. - AFB stain is negative for acid fast bacilli (A1, A2). - GMS stain is negative for fungal organisms/pneumocystis (A1, A2). - IHC for pankeratin highlights residual epithelial components and does not stain the atypical cell infiltrate (A1, A2). Note: The atypical lymphoid infiltrate is suspicious for lymphoma. Further evaluation is PENDING formal consultation with hematopathology division at [facility]. A separate report will follow from the banking consultant. COMMENT Selected slides/images were reviewed in intradepartmental consultation by Dr Marilyn Mcgee (thoracic pathology division, [facility]). MICROSCOPIC DESCRIPTION Slides are reviewed. GROSS DESCRIPTION A. Received in formalin labeled with the patient's name and date of . Designated as RT upper lung transbronchial BX is a 0.6 x 0.6 x 0.1 cm aggregate of pale jack to howard tissue fragments. Entirely submitted in 2 cassettes. SD 05/19/2025 CPT:97818,07701v9,[id number] ADDENDUM ADDENDUM ADDENDUM ADDENDUM ADDENDUM ADDENDUM ADDENDUM ADDENDUM ADDENDUM ADDENDUM ADDENDUM ADDENDUM ADDENDUM ADDENDUM ADDENDUM ADDENDUM ADDENDUM ADDENDUM 06/08/2025 10:48 ADDENDUM 06/09/2025 09:14 ADDENDUM 06/08/2025 10:48 ADDENDUM 06/08/2025 10:48 ADDENDUM 06/08/2025 10:48 ADDENDUM 06/08/2025 10:48 This addendum is added to incorporate an outside pathology consultation report. The case was examined at [facility] by Dr. Song (#[id number]) and the following diagnosis was rendered. A. Lung, right, upper, transbronchial biopsy: Low-grade B-cell lymphoma. IGH/B-cell Gene Rearrangement, tissue report - A2: IGH PCR PATTERN: Monoclonal IGH INTERPRETATION: The IGH PCR findings are consistent with the presence of a clonal B-cell population in this sample. Run and samples controls meet acceptable criteria. Please see complete above mentioned consultation report in EMR A CD45 IHC highlights the lymphoid cell infiltrate. All matched controls reacted appropriately. These tests were developed and their performance characteristics determined by [facility]. They may not have been cleared or approved by the U.S. Food and Drug Administration. The FDA has determined that such clearance or approval is not necessary.? The above immunohistochemical/dualISH?markers are reviewed by the Pathologis.
--- NOTE | 2025-05-19 | FLU_PTH ---
PATIENT: DANIEL CHAND LOC: EN U#:[id number] AGE/SX: 70/M ROOM: RE05/19/[address]: Dr. Kumar Israel MD : 1955 BED: DIS: 05/19/2025 SPEC #: [id number] RECD: 05/19/25 14:04 STATUS: AGUSTINA RICK #: [id number] ALEKS: 05/19/25 00:[address]: Kumar Israel V DEPT: CYTOLOGY RECD BY: Charli James ENTERED: 05/19/25 15:15 SP TYPE: Fluid OTHR DR: Dr. Nicole Echeverria, DO Tissues: A - Lung, NOS Procedures: Special Stain Group II Surgery Specimen Level IV Cytospin Fluid HEADER ,OPERATION: Bronchoscopy with transbronchial biopsy, right upper lobe lateral segment PRE-OP DIAGNOSIS: Abnormal findings of lung field, dyspnea TISSUE SUBMITTED: A- Right upper lobe fluid for cytology DIAGNOSIS CYTOLOGY A. Fluid, right lung, upper lobe, bronchoscopy (cytospin, cellblock): - No malignant cells identified. - Acute and chronic inflammation. - AFB stain is negative for acid fast bacilli. - GMS stain is negative for fungal organisms and pneumocystis. CYTOLOGY STUDY Slides are reviewed. CYTOLOGY GROSS A. Received is 20 ml of light-pink turbid fluid labeled with the patient's name and and designated per the requisition as Right upper lobe. Submitted for cytology and cell block preparation. 05/19/2025 CPT: 88763,[id number]
[2025-05-19] MEDS: Lactated Ringers 1,000 ML 15 ML IV (12:20)
--- NOTE | 2025-05-19 12:41 | PCM.PRE.AN2 ---
ASA Classification* ASA Classification ASA Classification: 3 Assessment & Plan Anesthesia* Anesthesia Assessment Anesthesia Assessment: Discussed sedation and/or anesthesia options, risks, benefits, and alternatives with patient/parents/legal guardian/POA. Questions invited. The patient/parents/legal guardian/POA seems to understand and agrees to proceed with anesthesia plan. Reviewed the physical assessment, medical history, allergy history and patient home medications list prior to surgery/procedure/anesthetic and documented any changes. Performed airway and anesthesia risk assessments. Anesthesia Type Anesthesia Type: MAC History Source History Obtained from:: Patient and Chart Anesthesia Focused Assessment* Temperature: 97.7 F Pulse Rate: 58 Blood Pressure: 131/88 Respiratory Rate: 18 Pulse Ox: 98 Oxygen Delivery Method: Room Air Airway Assessment Mouth opens: >3 cm Mallampati Score: I Teeth Condition: Intact Neck Range of motion (ROM): Full ROM Labs Anesthesia Preop lab: CBC WBC 5.5 K/mm3 (4.4-11.0) 04/17/23 11:07 04/17/23 RBC 5.29 M/mm3 (4.6-6.2) 04/17/23 11:07 04/17/23 Hgb 16.0 g/dL (13.0-16.5) 04/17/23 11:07 04/17/23 Hct 48.4 % (40-54) 04/17/23 11:07 04/17/23 Plt Count 180 K/mm3 (150-450) 04/17/23 11:07 04/17/23 CHEMISTRY Potassium 4.5 mmol/L (3.5-5.1) 04/17/23 11:07 04/17/23 Sodium 138 mmol/L (136-145) 04/17/23 11:07 04/17/23 Magnesium 2.4 mg/dL (1.6-2.6) 10/27/18 09:36 10/27/18 BUN 17 mg/dL (7-18) 04/17/23 11:07 04/17/23 Creatinine 0.87 mg/dL (0.70-1.30) 04/17/23 11:07 04/17/23 Glucose 91 mg/dL (74-106) 04/17/23 11:07 04/17/23 TSH 1.11 uIU/mL (0.358-3.74) 04/17/23 11:07 04/17/23 COAG Pre-Assessment Diagnosis/Proposed Procedure Planned Operative Procedure(s): BRONCHOSCOPY Anesthesia History Anesthesia History - demonstrator sewing techniques: Anesthesia History - demonstrator sewing techniques Hx Hospitalization No 05/17/25 09:24 Any Problems With Anesthesia No 05/17/25 09:24 Cholinesterase deficiency No 05/17/25 09:24 You/Your Family Experience No 05/17/25 09:24 fever (hyperthermia) with Relationship Recent Exposure to Contagious No 05/19/25 12:12 Disease Does patient have nerve No 05/17/25 09:24 stimulator Patient instructed to have device shut off --Does patient have Pacemaker No 05/19/25 12:12 or ICD? When Was Last Pacemaker Check QUESTION #4 FULL TEXT: You/Your Family Experience fever (hyperthermia) with Anesthesia Last Oral Intake Last Oral intake: Last Oral Intake NPO since 07:00 05/19/25 12:12 Meds taken in AM with sips of No 05/19/25 12:12 water? Meds patient instructed to take am of surgery Any additional information?: Yes NPO since: 07:00 (Patient had water and black coffee at 7 AM.) Meds taken in AM with sips of water?: No PONV PONV - demonstrator sewing techniques: PONV - demonstrator sewing techniques Female No 05/17/25 09:24 HX of Motion Sickness No 05/17/25 09:24 HX of N/V After Surgery No 05/17/25 09:24 Non-Smoker No 05/17/25 09:24 Duration of Surgery greater No 05/17/25 09:24 than 60 minutes Number of Risk Factors PONV Score Height & Weight Height & Weight: Anesthesia: Height & Weight Height 5 ft 11 in 05/19/25 12:12 Weight: 75.7 kg 05/19/25 12:12 Body Mass Index (BMI) 23.3 05/19/25 12:12 Respiratory Assessment Respiratory Assessment - demonstrator sewing techniques: Respiratory Tract Infection Hx - demonstrator sewing techniques Hx Respiratory Tract Infection No 05/17/25 09:24 Any additional information?: Yes Hx Respiratory Tract Infection: Yes History of Anesthesia Respiratory Infection details: Unclear if current process is an infection. No temperature. Bronchoscopy is to figure out current process. STOP Sleep Apnea STOP Sleep Apnea - demonstrator sewing techniques: STOP Sleep Apnea - demonstrator sewing techniques Hx Hypertension No 05/17/25 09:24 Hx Sleep Apnea No 05/17/25 09:24 CPAP No 05/17/25 09:24 BIPAP No 05/17/25 09:24 Do you snore loudly (louder No 05/17/25 09:24 than talking or can be heard Do you often feel tired/ No 05/17/25 09:24 fatigued/ sleepy during daytime? Has anyone observed you stop No 05/17/25 09:24 breathing during sleep? STOP Results Negative 05/17/25 09:24 QUESTION #5 FULL TEXT : Do you snore loudly (louder than talking or can be heard through closed doors)? 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 Specify any problems Hx of Preganancy in last 3 N/A 05/17/25 09:24 Months Nurse Filling Out Transfusion VCHRISTIN 05/17/25 09:24 & Questions: Date: 05/17/25 05/17/25 09:24 Time: :05/17/25 09:24 Patient unable to answer at this time (ie. confused, unrespo /Reproduction History /Reproductive History - demonstrator sewing techniques: /Reproductive Hx- demonstrator sewing techniques Hx Now No 05/17/25 09:24 Gestational Age (in weeks): EDC: Hx Hx Para Hx Section SAB No 05/17/25 09:24 Active Medications Active Medications: Current Medications Generic Name Dose Route Start Last Admin Trade Name Freq PRN Reason Stop Dose Admin Lactated Ringer's 1,000 mls @ 15 mls/hr 05/19/25 12:00 05/19/25 12:20 IV 15 mls/hr .Q48H JAYSHREE Administration PFSH Medical History Wears glasses Alcohol use History of steroid therapy Easy bruising Excessive bleeding Gastric reflux Non-smoker Chronic cough History of echocardiogram History of stress test Cardiology follow-up encounter Right rotator cuff tear Right hip pain Right shoulder pain Chronic sinusitis Hyperlipidemia Insomnia Atrial septal aneurysm Mild mitral valve prolapse Paroxysmal atrial fibrillation Home Medications ?Medication ?Instructions ?Recorded ?Last Taken ?Type magnesium oxide 500 mg PO DAILY 04/15/23 05/18/25 History cyanocobalamin-liver extract tablet 1 tab PO DAILY 04/17/23 05/18/25 History organ concentrates 80 mg capsule 80 mg PO DAILY 05/17/25 05/18/25 History Allergy/AdvReac Type Severity Reaction Status Date / Time desvenlafaxine Allergy Mild Hives Verified 05/19/25 12:10 Family History Mother CVA (cerebral vascular accident) Brother Arthritis Father Pacemaker Surgical History S/P left rotator cuff repair bicep repair S/P right rotator cuff repair History of repair of anterior cruciate ligament of right knee History of open reduction and internal fixation (ORIF) procedure Social History Smoking Status: Never smoker alcohol intake: current alcohol intake frequency: 0-2 drinks per day Alcohol type: beer and hard liquor substance use type: does not use caffeine: Yes Type: coffee Number of servings: 2 Review of Systems (Anesthesia) ROS Narrative System reviewed and no additional complaints, except as documented.
[2025-05-19] MEDS: Lidocaine Jelly 2% 20 ML Syringe (URO-JET) 1 APPLIC (13:14)
[2025-05-19] MEDS: Phenylephrine 0.25% 15 ML NASAL.SRY 15 SPRAY NASAL (13:14)
[2025-05-19] MEDS: Lidocaine 2% (5ml sdv) 5 ML VIAL.MPF (13:15)
--- NOTE | 2025-05-19 13:47 | PCM.POST.ANE ---
Anesthesia: Postop Eval I Current Vital Signs Temperature: 96.8 F Pulse Rate: 55 Blood Pressure: 110/70 Respiratory Rate: 16 Pulse Ox: 98 Oxygen Delivery Method: Room Air Assessment Airway patent: Yes Spontaneous unlabored respirations: Yes Mental status: Awake nausea: No Vomiting: No Anesthesia Complication: No Fluid Hydration Crystalloid volume administer (ml): 500 Total IV fluid infused: 500 Progress Note Anesthesia document: Postop Eval 1 completed: Yes
--- NOTE | 2025-05-19 13:50 | OP.BRONCH_ITS ---
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 The patient's medications, allergies and sensitivities have been reviewed. - The risks and benefits of the procedure and the sedation options and risks were discussed with the patient. All questions were answered and informed consent was obtained. - Pre-procedure physical examination revealed no contraindications to sedation. After I obtained informed consent, the scope was passed under direct vision. Throughout the procedure, the patient's blood pressure, pulse, and oxygen saturations were monitored continuously. The Bronchoscope was introduced through the right nostril and advanced to the tracheobronchial tree of both lungs. The patient tolerated the procedure well. The total duration of the procedure was 19 minutes. Moderate Sedation: An independent trained observer was present and continuously monitored the patient. Findings: The nasopharynx/oropharynx appears normal. The larynx appears normal. The vocal cords appear normal. The subglottic space is normal. The trachea is of normal caliber. The aura is sharp. The tracheobronchial tree of the left lung was examined to at least the first subsegmental level. Bronchial mucosa and anatomy in the left lung are normal; there are no endobronchial lesions, and no secretions. The nasopharynx/oropharynx appears normal. The larynx appears normal. The vocal cords appear normal. The subglottic space is normal. The trachea is of normal caliber. The aura is sharp. The tracheobronchial tree of the right lung was examined to at least the first subsegmental level. Bronchial mucosa and anatomy in the right lung are normal; there are no endobronchial lesions, and no secretions. Larynx: A medium sized barely obstructing (less than 10% obstruction) nodule was found at the vocal cords. Transbronchial biopsies of an area of infiltration were performed in the posterior segment of the right upper lobe and in the lateral segment of the right middle lobe using forceps and sent for cell count, bacterial culture, viral smears & culture, and fungal & AFB analysis and cytology and histopathology examination. The procedure was guided by fluoroscopy. Biopsy of lung tissue was obtained. Six biopsy passes were performed. Six biopsy samples were obtained. The bronchoscope was advanced until wedged at the desired location for bronchoalveolar lavage. BAL was performed in the RLL posterior basal segment (B10) of the lung and sent for routine cytology. 80 mL of fluid were instilled. 40 mL were returned. The return was blood-tinged and cloudy. There were no mucoid plugs in the return fluid. 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 - The airway examination of the right lung was normal. - A nodule was found at the vocal cords. This lesion is benign. - Transbronchial lung biopsies were performed. - Bronchoalveolar lavage was performed. Recommendation: - Await test results. - Await test results. Procedure Code(s): --- Professional --- 17156, Bronchoscopy, rigid or flexible, including fluoroscopic guidance, when performed; with transbronchial lung biopsy(s), single lobe 23601, Bronchoscopy, rigid or flexible, including fluoroscopic guidance, when performed; with bronchial alveolar lavage 55195, Bronchoscopy, rigid or flexible, including fluoroscopic guidance, when performed; with transbronchial lung biopsy(s), each additional lobe (List separately in addition to code for primary procedure) Diagnosis Code(s): --- Professional --- R93.89, Abnormal findings on diagnostic imaging of other specified body structures 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 All rights reserved. The codes documented in this report are preliminary and upon control panel operator review may be revised to meet current compliance requirements. MD Kumar Chandler MD 05/19/2025 1:49:44 PM This report has been signed electronically. Number of Addenda: 0 Note Initiated On: 05/19/2025 12:15 PM
--- NOTE | 2025-05-19 14:05 | RAD_ITS ---
PROCEDURE: CHEST 1 VIEW (PORTABLE) 05/19/2025 REASON FOR EXAM: POST BRONCH TECHNIQUE: Frontal view of the chest. COMPARISON: Chest radiograph 05/11/2025. CT chest 02/2025. FINDINGS: Hardware: Surgical anchor within the right humeral head. Heart: The heart size is normal. Lungs: Redemonstration of multifocal bilateral pulmonary masses ([id number]), better evaluated on prior chest CT. No pleural effusion or pneumothorax. Bones: Degenerative changes are identified within the thoracic spine. RAD/Chest 1 View (Portable) IMPRESSION: Multifocal bilateral pulmonary masses, better evaluated on prior chest CT. No acute finding. Reading Location: [id number]
[2025-05-19 14:37] LABS: Cytology, Body Fluid / CSF SEE PATHOLOGY REPORT
--- NOTE | 2025-05-19 18:58 | POSTOPAN2_ITS ---
Anesthesia Postop Eval I Sum Postop Eval Completion status Anesthesia document: Postop Eval 1 completed: Yes Anesthesia Postop Eval I Summary Anesthesia Postop Eval I Summary: Anesthesia Postop Eval I: Assessment Summary Airway patent Yes 05/19/25 13:47 [email or web address] [email or web address] Spontaneous unlabored Yes 05/19/25 13:47 MOLD [email or web address] respirations Mental status Awake 05/19/25 13:47 MOLD [email or web address] nausea No 05/19/25 13:47 MOLD [email or web address].[email or web address] Vomiting No 05/19/25 13:47 MOLD [email or web address].[email or web address] Anesthesia Postop Eval I: Fluid Summary Crystalloid volume administer 500 05/19/25 13:47 MOLD [email or web address] (ml) Colloids volume administered ( ml) Blood Product volume administered (ml) Total IV fluid infused 500 05/19/25 13:47 MOLD [email or web address].[email or web address] Anesthesia Postop Eval I: Summary Notes Anesthesia Complication No 05/19/25 13:47 MOLD [email or web address] Anesthesia Complication Comment: Post-operative progress note Anesthesia: Postop Eval II Evaluation Mental status: Awake Pain Level: 0 nausea: No Vomiting: No
--- NOTE | 2025-05-19 18:58 | PCM.POSTANE2 ---
Anesthesia Postop Eval I Sum Postop Eval Completion status Anesthesia document: Postop Eval 1 completed: Yes Anesthesia Postop Eval I Summary Anesthesia Postop Eval I Summary: Anesthesia Postop Eval I: Assessment Summary Airway patent Yes 05/19/25 13:47 NUCLEAR CRITICALITY SAFETY [email or web address].[email or web address] Spontaneous unlabored Yes 05/19/25 13:47 NUCLEAR CRITICALITY SAFETY ENGINEER.[email or web address] respirations Mental status Awake 05/19/25 13:47 NUCLEAR CRITICALITY SAFETY ENGINEER.[email or web address] nausea No 05/19/25 13:47 NUCLEAR CRITICALITY SAFETY ENGINEER.[email or web address] Vomiting No 05/19/25 13:47 NUCLEAR CRITICALITY SAFETY ENGINEER.[email or web address] Anesthesia Postop Eval I: Fluid Summary Crystalloid volume administer 500 05/19/25 13:47 NUCLEAR CRITICALITY SAFETY [email or web address].[email or web address] (ml) Colloids volume administered ( ml) Blood Product volume administered (ml) Total IV fluid infused 500 05/19/25 13:47 NUCLEAR CRITICALITY SAFETY ENGINEER.[email or web address] Anesthesia Postop Eval I: Summary Notes Anesthesia Complication No 05/19/25 13:47 NUCLEAR CRITICALITY SAFETY ENGINEER.[email or web address] Anesthesia Complication Comment: Post-operative progress note Anesthesia: Postop Eval II Evaluation Mental status: Awake Pain Level: 0 nausea: No Vomiting: No
== END 2025-05-19 15:16 | disposition home or self-care (01) ==
LOC: EN 11:45 → AC 11:47
PROVIDERS: PCP Internal Medicine; Referring Provider Internal Medicine Pulmonary Disease; Visit Provider Internal Medicine Pulmonary Disease
PROC: 0BJ08ZZ Inspection of Tracheobronchial Tree, Via Natural or Artificial Opening Endoscopic (ICD-10-PCS; CPT 31622; principal; 2025-05-19 12:45)
DX: R91.8 Other nonspecific abnormal finding of lung field (principal); Z21 Asymptomatic human immunodeficiency virus [HIV] infection status; K21.9 Gastro-esophageal reflux disease without esophagitis; D14.1 Benign neoplasm of larynx
CPT/HCPCS: 31628; 31624; 31632; 71045; 76000; 87015; 87070; 87101; 87116; 87205; 87206; 88108; 88305; 88312; 88313; 88341; 88342; J2405